=== PATIENT | female | born 1995 | race Caucasian/White ===

== ENCOUNTER 2025-01-18 07:10 | Inpatient (IN) | payer OTHER, SELFPAY ==
[2025-01-18] VITALS (57 sets, daily range): BP systolic 119–155; BP diastolic 55–81; PULSE 69–107; RESP 14–18; TEMP 36.4–37.9; O2SAT 97–100; BMI 35.5
--- OUTSIDE RECORDS SUMMARY | 2025-01-18 07:19 | XMS RPT_ITS | CCD ---
Author Organization [facility] Care Team Providers Care Master [employer] Parach[employer]ist Name Role Phone Silvina Whitfield Unavailable Unavailable Unavailable Silvina Whitfield Unavailable Mahnaz Quintanilla Unavailable Unavailable Sridhar, Dr. Norman Swenson Attending Unavailabl e Wharton, Dr. Norman Swenson Referring Unavailabl e Whitfield, Dr. Silvina Che Primary Care Unav ailable Wharton, Dr. Norman Swenson Attending Unavailabl e Wharton, Dr. Norman Swenson Referring Unavailabl e Whitfield, Dr. Silvina Che Primary Care Unav ailable Wharton, Dr. Norman Swenson Attending Unavailabl e Wharton, Dr. Norman Swenson Referring Unavailabl e Whitfield, Dr. Silvina Che Primary Care Unav ailable Quintanilla, Dr. Joya Admitting Unavailable Quintanilla, Dr. Joya Attending Unavailable Quintanilla, Dr. Joya Referring Unavailable Whitfield, Dr. Silvina Che Primary Care Unav ailable Quintanilla, Dr. Joya Attending Unavailable Quintanilla, Dr. Joya Referring Unavailable Whitfield, Dr. Silvina Che Primary Care Unav ailable Whitfield, Dr. Silvina Che Primary Care Unav ailable Sridhar, Dr. Norman Swenson Attending Unavailabl e Whitfield, Dr. Silvina Che Primary Care Unav ailable Quintanilla, Dr. Mahnaz Sandy Referring Unav ailable Quintanilla, Dr. Mahnaz Sandy Attending Unav ailable Whitfield, Dr. Silvina Che Primary Care Unav ailable Wharton, Dr. Norman Swenson Attending Unavailabl e Whitfield, Dr. Silvina Che Primary Care Unav ailable Quintanilla, Dr. Mahnaz Sandy Referring Unav ailable Quintanilla, Dr. Mahnaz Sandy Attending Unav ailable Quintanilla, Dr. Mahnaz Sandy Referring Unav ailable Quintanilla, Dr. Mahnaz Sandy Attending Unav ailable Whitfield, Dr. Silvina Che Primary Care Unav ailable Whitfield, Dr. Silvina Che Primary Care Unav ailable Sridhar, Dr. Norman Swenson Attending Unavailabl e Sridhar, Dr. Norman Swenson Referring Unavailabl e Whitfield, Dr. Silivna Che Primary Care Unav ailable Quintanilla, Dr. Mahnaz Sandy Referring Unav ailable Quintanilla, Dr. Mahnaz Sandy Attending Unav ailable Quintanilla, Dr. Mahnaz Sandy Referring Unav ailable Quintanilla, Dr. Mahnaz Sandy Attending Unav ailable Whitfield, Dr. Silvina Che Primary Care Unav ailable Whitfield, Dr. Silvina Che Primary Care Unav ailable Sridhar, Dr. Norman Swenson Attending Unavailabl e Sridhar, Dr. Norman Swenson Referring Unavailabl e Whitfield, Dr. Silvina Che Primary Care Unav ailable Wharton, Dr. Norman Swenson Attending Unavailabl e Wharton, Dr. Norman Swenson Referring Unavailabl e Whitfield, Dr. Silvina Che Primary Care Unav ailable Sridhar, Dr. Norman Swenson Attending Unavailabl e Sridhar, Dr. Norman Swenson Referring Unavailabl e Whitfield, Dr. Silvina Che Primary Care Unav ailable Quintanilla, Dr. Mahnaz Sandy Attending Unav ailable Quintanilla, Dr. Mahnaz Sandy Referring Unav ailable MD MIREILLE ELY Attending Unavail able MD MIREILLE ELY Referring Unavail able Whitfield, Dr. Silvina Che Primary Care Unav ailable Whitfield, Dr. Silvina Che Primary Care Unav ailable Wharton, Dr. Norman Swenson Attending Unavailabl e Wharton, Dr. Norman Swenson Referring Unavailabl e Whitfield, Dr. Silvina Che Primary Care Unav ailable Sridhar, Dr. Norman Swenson Attending Unavailabl e Wharton, Dr. Norman Swenson Referring Unavailabl e Whitfield, Dr. Silvina Che Primary Care Unav ailable Wharton, Dr. Norman Swenson Attending Unavailabl e Sridhar, Dr. Norman Swenson Referring Unavailabl e Whitfield, Dr. Silvina Che Primary Care Unav ailable Quintanilla, Dr. Mahnaz Sandy Referring Unav ailable Quintanilla, Dr. Mahnaz Sandy Attending Unav ailable Whitfield, Dr. Silvina Che Primary Care Unav ailable Quintanilla, Dr. Mahnaz Sandy Attending Unav ailable Quintanilla, Dr. Mahnaz Sandy Referring Unav ailable Whitfield, Dr. Silvina Che Primary Care Unav ailable Quintanilla, Dr. Mahnaz Sandy Referring Unav ailable Quintanilla, Dr. Mahnaz Sandy Attending Unav ailable Whitfield Silvina MCKEON Primary Care Provider [phone] MIREILLE ELY Attending Unavailable SILVINA WHITFIELD Primary Care Unavailable MIREILLE ELY Attending Unavailable SILVINA WHITFIELD Primary Care Unavailable Unavailable Primary Care Provider UnavailYULI Corcoran Attending Unavailable SELF, SELF Referring Unavailable NEWMAN, EDROY Referring Unavailable TONY NEWMANROY Attending Unavailable DEENA, EDROY L Admitting Unavailable PAT NEWMANY Mattie Attending Unavailable DEENA, EDROY L Referring Unavailable KISHORE HACKETT Attending Unavailable Unavailable Primary Care Provider UnavailSilvina Gonzalez MD Primary Care Provider [phone] SILVINA WHITFIELD Primary Care Unavailable EDWARD MONTERROSO Attending Unavailable Care Physician, No Primary Primary Care Unava ilable Bernadette Harry Admitting Unavailable Bernadette Harry Attending Unavailable Bernadette Harry Referring Unavailable MAYA VASQUEZ Attending Unavail able HACLARIBEL NIRMALA Referring Unavailable HAURY, NIRMALA Attending Unavailable HAURY, NIRMALA Referring Unavailable HAURY, NIRMALA Attending Unavailable HAURY, NIRMALA Referring Unavailable BERNADETTE HARRY Attending Unavailable HAURY, NIRMALA Referring Unavailable BERNADETTE HARRY Attending Unavailable KYE KENDRICK Attending Unavailable LIANA ROSARIO Attending Unavailable HAURY, NIRMALA Referring Unavailable CORINNE SHANNON Attending Unavailable ORI HARRYCA Mattie Referring Unavailable HAURY, NIRMALA Attending Unavailable WISWELL, CORINNE Referring Unavailable NEYHART PEREZ, MAYA Attending Unavail able CORINNE SHANNON Referring Unavailable SHIMA BURRELL Attending Unavailable SHIMA BURRELL Referring Unavailable MAYA VASQUEZ Referring Unavail able SIERRA CASEY Attending Unavailable MAYA VASQUEZ Referring Unavail able Medications Current Medications Medication Drug Class(es) Dates Sig (Normalized) Sig (Original) acetaminophen 325 mg / HYDROcodone bitartrate 5 mg oral tablet (3 sources) Opioid Agonist Start: 01-27-2024 End: 02-03-2024 take 1 tablet by mouth every four hours as needed for pain hydroCODone-aceta minophen 5-325 MG tablet Indications: Missed Take 1 tablet by mouth every 4 hours as needed for Moderate Pain for up to 7 days. 12 tablet 01/27/2024 Active Start: 01-27-2024 End: 01-27-2024 take 1 tablet by mouth every four hours as needed erythromycin 0.005 mg/mg ophthalmic ointment (1 source) Macrolide, Macrolide Antimicrobial Start: 10-29-2024 erythromycin (Romycin) 5 mg/gram (0.5 %) ophthalmic ointment Indications: Acute conjunctivitis of right eye, unspecified acute conjunctivitis type 1 application in affected eye 4 times a day x 7 days. Apply 1 cm strip of ointment into lower conjunctival sac. 3.5 g 10/29/2024 Active ibuprofen 800 mg oral tablet (4 sources) Nonsteroidal Anti-inflammatory Drug Start: 01-27-2024 take 1 tablet by mouth every eight hours as needed ibuprofen 800 MG tablet Take 1 tablet by mouth every 8 hours as needed for Mild Pain or Moderate Pain. 30 tablet 1 01/27/2024 Active Start: 01-27-2024 End: 01-27-2024 take 1 tablet by mouth every six hours as needed Start: 04-11-2022 take 1 tablet by isamar th every eight hours ibuprofen 800 mg oral tablet ; 1 tab(s) orally every 8 hours Quantity: 60 Refills: 0 Ordered: 11-Apr-2022 Mahnaz Quintanilla Start: 11-Apr-2022 Generic Substitution Allowed Comments: Do not take this drug if you are .It is very important that you take or use this exactly as directed. Do not skip doses or discontinue unless directed by your doctor.May cause drowsiness or dizziness.Obtain medical advice before taking any non-prescription drugs as some may affect the action of this medication.Take with food or milk. Comment on above: Do not take this shayy g if you are .It is very important that you take or use this exactly as directed. Do not skip doses or discontinue unless directed by your doctor.May cause drowsiness or dizziness.Obtain medical advice before taking any non-prescription drugs as some may affect the action of this medication.Take with food or milk. metroNIDAZOLE 500 mg oral tablet (1 source) Nitroimidazole Antimicrobial Start: End: take 1 tablet by mouth twice daily metroNIDAZOLE 500 MG Oral Tablet Take 1 tablet twice daily Quantity: 14 Refills: 0 Ordered: 19-Oct-2021 Norman Leonard DO Start : 19-Oct-2021 End : 26-Oct-2021 Active 1 oral capsule (1 source) take 1 tablet by mouth once daily 1 oral capsule ; 1 tab(s) orally once a day Quantity: 0 Refills: 0 Ordered: 09-Apr-2022 Flaquito Conway Generic Substitution Allowed VIT 7-FZMR-[id number]-DHA ORAL (20 sources) VIT 7-IIAL-SABQN-DHA ORAL Take by mouth. Active Completed/Discontinued Medications Medication Drug Class(es) Dates Sig (Normalized) Sig (Original) acetaminophen 325 mg oral tablet (2 sources) Start: 01-27-2024 End: 01-27-2024 take 1 tablet by mouth every four hours as needed Start: 04-11-2022 take 3 tablets by mo ut every six hours acetaminophen 325 mg oral tablet ; 3 tab(s) orally every 6 hours Quantity: 0 Refills: 0 Ordered: 11-Apr-2022 Mahnaz Quintanilla Start: 11-Apr-2022 Generic Substitution Allowed acetaminophen 325 mg / oxyCODONE hydrochloride 5 mg oral tablet (1 source) Opioid Agonist Start: 01-27-2024 End: 01-27-2024 take 1 tablet by mouth every three hours as needed aspirin 81 mg delayed release oral tablet (19 sources) Platelet Aggregation Inhibitor, Nonsteroidal Anti-inflammatory Drug Start: 09-28-2021 take 2 tablets by mouth once daily Aspirin 81 MG Oral Tablet Delayed Release TAKE 2 TABLET Daily Quantity: 60 Refills: 11 Ordered: 28-Sep-2021 Khoa DO, Norman Start : 28-Sep-2021 Active calcium chloride 0.0014 meq/ml / potassium chloride 0.004 meq/ml / sodium chloride 0.103 meq/ml / sodium lactate 0.028 meq/ml injectable solution (1 source) Start: 01-27-2024 End: 01-27-2024 diphenhydrAMINE hydrochloride 25 mg oral tablet (1 source) Histamine-1 Receptor Antagonist Start: 01-27-2024 End: 01-27-2024 take 1 tablet by mouth every six hours as needed Doxycycline hyclate (VIBRAMYCIN) 200 mg in Sodium chloride 0.9%, with overfill 295 mL (total volume) IVPB (1 source) Start: 01-27-2024 End: 01-27-2024 200 mg, Intravenous, Administer over 2 Hours, ONCE, 1 dose, On Fri01/27/24 at 0615, Extravasation Risk levonorgestrel 0.169515 mg/hr intrauterine system (4 sources) Progestin, Progestin-containi ng Intrauterine Device Start: 07-03-2022 End: 07-03-2025 levonorgestrel (Naye) 14 mcg/24 hrs (3 yrs) 13.5 mg IUD 1 each by intrauterine route 1 time. 07/03/2022 10/27/2023 Discontinued (Therapy completed) Naye 13.5 MG In trauterine Intrauterine Device Quantity: 0 Refills: 0 Ordered: 03-Jul-2022 DO Active 2 ml ondansetron 2 mg/ml injection (2 sources) Serotonin-3 Receptor Antagonist Start: 01-27-2024 End: 01-27-2024 Start: 01-27-2024 End: 01-27-2024 take 1 tablet by mouth every six hours as needed Multi +DHA 27-0.8-2 50 MG Oral Capsule (20 sources) Multi + DHA 27-0.8-250 MG Oral Capsule Quantity: 0 Refills: 0 Ordered: 31-Aug-2021 DO Active Probiotic Complex Acidophilu s CAPS (20 sources) Probiotic Comple x Acidophilus CAPS Quantity: 0 Refills: 0 Ordered: 31-Aug-2021 DO Active Problems Active Problems Problem Classification Problem Date Documented Da te Episodic/Chronic Abdominal pain (2 sources) Right upper quadrant pain; Translations: [Right upper quadrant pain] Onset: 12-09-2024 12-09-2024 Episodic Anxiety disorders (1 source) Anxiety disorder, unspecified; Translations: [Anxiety during (HCC)] Onset: 07-29-2024 Chronic Contraceptive and procreative management (2 sources) Intrauterine contraceptive device in situ; Translations: [Presence of intrauterine contraceptive device] Episodic Comment on above: Naye IUD-placed LOT#: [id number]:05/2024; Immunizations and screening for infectious disease (20 sources) Patient encounter status; Translations: [Other specified vaccination] Onset: 02-19-2022 07-15-2023 Episodic Inflammation; infection of eye (except that caused by tuberculosis or sexually transmitteddisease) (3 sources) Acute conjunctivitis of right eye; Translations: [Unspecified acute conjunctivitis, right eye] Onset: 10-29-2024 10-29-2024 Episodic Inflammatory diseases of female pelvic organs (16 sources) Bacterial vaginosis; Translations: [Vaginitis and vulvovaginitis, unspecified] Episodic Menstrual disorders (7 sources) Secondary amenorrhea; Translations: [Absence of menstruation] Chronic Nausea and vomiting (2 sources) Nausea; Translations: [Nausea] Onset: 12-09-2024 12-09-2024 Episodic OB-related trauma to perineum and vulva (2 sources) Second degree perineal tear during delivery - delivered; Translations: [Second-degree perineal laceration, delivered, with or without mention of antepartum condition] Onset: 04-10-2022 04-11-2022 Episodic Other complications of ; puerperium affecting management of mother (3 sources) Obesity complicating childbirth; Translations: [Obesity complicating childbirth] Onset: 04-09-2022 Chronic Other complications of (20 sources) Maternal obesity complicating , childbirth and the puerperium, antepartum; Translations: [Obesity complicating , second trimester] Onset: 07-29-2024 07-29-2024 Chronic Other complications of (1 source) Obesity complicating , second trimester; Translations: [Obesity affecting in second trimester, unspecified obesity type (HCC)] Onset: 07-29-2024 Chronic Other complications of (1 source) Obesity complicating , unspecified trimester; Translations: [Obesity affecting , antepartum, unspecified obesity type (HCC)] Onset: 11-04-2024 Chronic Other complications of (13 sources) Uterine size for dates discrepancy; Translations: [Uterine size date discrepancy, antepartum condition or complication] Episodic Other complications of (4 sources) Uterine size-date discrepancy, third trimester; Translations: [Uterine size-date discrepancy, third trimester] Onset: 03-15-2022 Episodic Other complications of (20 sources) High risk ; Translations: [Supervision of high risk , unspecified, second trimester] Onset: 07-29-2024 07-29-2024 Episodic Other complications of (3 sources) Anxiety in ; Translations: [Other mental disorders complicating , unspecified trimester] Onset: 07-29-2024 07-29-2024 Episodic Other complications of (1 source) Supervision of high risk , unspecified, third trimester; Translations: [Encounter for supervision of high risk in third trimester, antepartum (HCC)] Onset: 11-15-2024 Episodic Other complications of (1 source) Supervision of high risk , unspecified, second trimester; Translations: [Encounter for supervision of high risk in second trimester, antepartum (HCC)] Onset: 11-04-2024 Episodic Other female genital disorders (4 sources) Leukorrhea; Translations: [Leukorrhea, not specified as infective] Episodic Other gastrointestinal disorders (20 sources) Chronic constipation; Translations: [Constipation, unspecified] Episodic Other nutritional; endocrine; and metabolic disorders (20 sources) Body mass index 30+ - obesity; Translations: [Obesity, unspecified] Chronic Other nutritional; endocrine; and metabolic disorders (4 sources) Obesity, unspecified; Translations: [Obesity, unspecified] Onset: 03-15-2022 Chronic Other nutritional; endocrine; and metabolic disorders (1 source) Body mass index (BMI) 30.0-30.9, adult; Translations: [Body mass index [BMI] 30.0-30.9, adult] Onset: 03-15-2022 Chronic Residual codes; unclassified (20 sources) History of with abortive outcome; Translations: [Personal history of other genital system and obstetric disorders] Episodic Comment on above: 02/2015; Residual codes; unclassified (5 sources) Gestation period, 16 weeks; Translations: [ state, incidental] Onset: 11-23-2021 Episodic Residual codes; unclassified (1 source) Gestation period, 24 weeks; Translations: [ state, incidental] Episodic Residual codes; unclassified (3 sources) Gestation period, 30 weeks; Translations: [ state, incidental] 11-15-2024 Episodic Residual codes; unclassified (12 sources) Gestation period, 33 weeks; Translations: [ state, incidental] 12-09-2024 Episodic Residual codes; unclassified (9 sources) Gestation period, 36 weeks; Translations: [ state, incidental] 12-31-2024 Episodic Residual codes; unclassified (1 source) 39 weeks gestation of ; Translations: [39 weeks gestation of ] Onset: 04-11-2022 Episodic Residual codes; unclassified (2 sources) 37 weeks gestation of ; Translations: [37 weeks gestation of ] Onset: 03-15-2022 Episodic Residual codes; unclassified (1 source) Weeks of gestation of not specified; Translations: [Weeks of gestation of not specified] Onset: 02-19-2022 Episodic Residual codes; unclassified (4 sources) 28 weeks gestation of ; Translations: [28 weeks gestation of ] Onset: 02-01-2022 Episodic Residual codes; unclassified (1 source) 31 weeks gestation of ; Translations: [31 weeks gestation of ] Onset: 02-01-2022 Episodic Residual codes; unclassified (2 sources) Gestation period, 14 weeks; Translations: [14 weeks gestation of ] 07-29-2024 Episodic Residual codes; unclassified (2 sources) Gestation period, 20 weeks; Translations: [20 weeks gestation of ] 09-09-2024 Episodic Residual codes; unclassified (2 sources) Gestation period, 28 weeks; Translations: [28 weeks gestation of ] 11-04-2024 Episodic Residual codes; unclassified (2 sources) Gestation period, 32 weeks; Translations: [32 weeks gestation of ] 12-01-2024 Episodic Residual codes; unclassified (1 source) Gestation period, 37 weeks; Translations: [37 weeks gestation of ] 01-05-2025 Episodic Residual codes; unclassified (1 source) Gestation period, 38 weeks; Translations: [38 weeks gestation of ] 01-14-2025 Episodic Residual codes; unclassified (1 source) 38 weeks gestation of ; Translations: [38 weeks gestation of (HCC)] Onset: 01-14-2025 Episodic Residual codes; unclassified (1 source) 36 weeks gestation of ; Translations: [36 weeks gestation of (HCC)] Onset: 12-31-2024 Episodic Residual codes; unclassified (1 source) 34 weeks gestation of ; Translations: [34 weeks gestation of (HCC)] Onset: 12-15-2024 Episodic Residual codes; unclassified (1 source) 33 weeks gestation of ; Translations: [33 weeks gestation of (HCC)] Onset: 12-09-2024 Episodic Residual codes; unclassified (1 source) 32 weeks gestation of ; Translations: [32 weeks gestation of (HCC)] Onset: 12-01-2024 Episodic Residual codes; unclassified (1 source) 30 weeks gestation of ; Translations: [30 weeks gestation of (HCC)] Onset: 11-15-2024 Episodic Unclassified (2 sources) INDUCTION OF LABOR 03-29-2022 Comment on above: INDUCTION OF LABOR Unclassified (1 source) PP 04-08-2022 Comment on above: PP Unclassified (1 source) Perineal laceration, second degree, delivered 04-11-2022 Unclassified (2 sources) Procedure; Translations: [Procedure] Onset: 10-27-2023 Unclassified (3 sources) [facility] Education - COMMON Onset: 07-29-2024 07-29-2024 Unclassified (3 sources) Education - [place] Onset: 07-29-2024 07-29-2024 Past or Other Problems Problem Classification Problem Date Documented Date Episodic/Chronic Hemorrhage during ; abruptio placenta; placenta previa (20 sources) Antepartum hemorrhage; Translations: [Hemorrhage in early , unspecified] Onset: 07-18-2024 07-18-2024 Episodic Other complications of (2 sources) Missed miscarriage; Translations: [Missed ] Onset: 01-27-2024 01-27-2024 Episodic Other complications of (1 source) Missed ; Translations: [Missed ] Onset: 01-27-2024 Episodic Other complications of (20 sources) History of delivery of macrosomal infant; Translations: [Supervision of with other poor reproductive or obstetric history, unspecified trimester] Onset: 07-29-2024 07-29-2024 Episodic Other complications of (20 sources) Diseases of the digestive system complicating , second trimester; Translations: [Other current conditions classifiable elsewhere of mother, antepartum condition or complication] Onset: 07-29-2024 07-29-2024 Episodic Other complications of (20 sources) Other mental disorders complicating , unspecified trimester; Translations: [Mental disorders of mother, antepartum condition or complication] Onset: 07-29-2024 07-29-2024 Episodic Other complications of (1 source) Supervision of with other poor reproductive or obstetric history, unspecified trimester; Translations: [History of macrosomia in infant in prior , currently (HCC)] Onset: 07-29-2024 Episodic Other and delivery including normal (20 sources) Urine test positive; Translations: [ examination or test, positive result] Onset: 11-23-2021 04-11-2022 Episodic Comment on above: 04/09/22 39 WEEKS MA LE 8LB [id number]; Other screening for suspected conditions (not mental disorders or infectious disease) (8 sources) Urine test negative; Translations: [ examination or test, negative result] Onset: 09-28-2021 Episodic Residual codes; unclassified (5 sources) Gestation period, 12 weeks; Translations: [ state, incidental] Onset: 10-04-2021 Episodic Residual codes; unclassified (2 sources) 16 weeks gestation of ; Translations: [16 weeks gestation of ] Onset: 11-23-2021 Episodic Residual codes; unclassified (1 source) 21 weeks gestation of ; Translations: [21 weeks gestation of ] Onset: 11-23-2021 Episodic Residual codes; unclassified (1 source) 12 weeks gestation of ; Translations: [12 weeks gestation of ] Onset: 10-04-2021 Episodic Residual codes; unclassified (20 sources) H/O: miscarriage; Translations: [Personal history of other complications of , childbirth and the puerperium] Onset: 07-29-2024 07-29-2024 Episodic Residual codes; unclassified (19 sources) H/O: depression; Translations: [Personal history of other complications of , childbirth and the puerperium] Onset: 08-11-2024 08-11-2024 Episodic Residual codes; unclassified (1 source) 20 weeks gestation of ; Translations: [20 weeks gestation of (HCC)] Onset: 09-09-2024 Episodic Residual codes; unclassified (1 source) 14 weeks gestation of ; Translations: [14 weeks gestation of (HCC)] Onset: 08-11-2024 Episodic Spontaneous (3 sources) with abortive outcome; Translations: [Incomplete spontaneous without complication] Onset: 01-27-2024 01-27-2024 Episodic Unclassified (20 sources) Finding of menstrual bleeding; Translations: [Menstruation] Comment on above: Onset age 14 years; Results Test Name Value Interpretation Reference Range Facility URINE OB DIP B/Oon 5 Glucose Ql (U) Negative Neg mg/dL [facility] Interpretation and review of laboratory results Normal [facility] Protein.monoclonal (U) [Mass/Vol] Negative Neg mg/dL [facility] URINE OB DIP B/Oon 5 Glucose Ql (U) Negative Neg mg/dL [facility] Protein.monoclonal (U) [Mass/Vol] Negative Neg mg/dL [facility] Examination level ultrasound on 12-31-2024 [facility] Radiology Study observation (narrative) [facility] ROUTINE, GROUP B ST REPTOCOCCUS BY PCRon 12-31-2024 ROUTINE, GROUP B STREPTOCOCCUS BY PCR Not detected Normal [facility] Comment on above: Performed By: #### Jasmyn MILLS, [id number] #### [facility] CLIA [id number] [address] [place] [address] [place] URINE OB DIP B/Oon 5 Glucose Ql (U) Negative Neg mg/dL [facility] Interpretation and review of laboratory results Normal [facility] Protein.monoclonal (U) [Mass/Vol] Negative Neg mg/dL [facility] AMYLASEon 12-10-2024 Amylase [Catalytic activity/Vol] 65 U/L 30 - 104 U/L [facility] LIPASEon 12-10-2024 Lipase [Catalytic activity/Vol] 26 U/L 16 - 61 U/L [facility] No Panel Informationon 12-10 Interpretation and review of laboratory results Normal [facility] PROTEIN / CREATININE RATIOon 12-10-2024 Protein/Creatinine (U) [Mass ratio] 0.10 mg/mg NINF - 0.15 mg/mg [facility] Comment on above: Adult Proteinuria Ca tegories: <0.15 mg/mg is considered normal to mildly increased 0.15 - 0.50 mg/mg is considered moderately increased >0.50 mg/mg is considered severely increased KDIGO. (2013). KDIGO 2012 Clinical Practice Guideline for the Evaluation and Management of Chronic Kidney Disease. Official Journal of the International Society of Nephrology, 3(1), 1-150. Protein/Creatinine (U) [Mass ratio]on 12-10-2024 Creatinine (U) [Mass/Vol] 167.9 mg/dL 20.0 - 300.0 mg/dL [facility] Interpretation and review of laboratory results Normal [facility] Protein (U) [Mass/Vol] 17 mg/dL 0 - 20 mg/dL [facility] Amylase SerPl-cCncon 025 Amylase [Catalytic activity/Vol] 65 U/L Normal 30-104 [facility] Comment on above: Order Comment: Speci men Type: SWAB Ordering Facility: [facility] Address: [address] [place] [address] Performed By: #### Jasmyn MILLS, [id number] #### [facility] CLIA [id number] [address] [place] [address] [place] CBC W Auto Differential pane l (Bld)on 12-09-2024 Basophils (Bld) [#/Vol] 0.03 10*3/uL [facility] Basophils/100 WBC (Bld) 0.2 % [facility] Differential cell count method Nom (Bld) Auto [facility] Eosinophils (Bld) [#/Vol] 0.04 10*3/uL [facility] Eosinophils/100 WBC (Bld) 0.3 % [facility] Erythrocyte distribution width (RBC) [Ratio] 13.6 % 11.5 - 15.0 % [facility] Hematocrit (Bld) [Volume fraction] 37.0 % 36.0 - 46.0 % [facility] Hemoglobin (Bld) [Mass/Vol] 12.7 g/dL 11.5 - 15.5 g/dL [facility] Immature granulocytes (Bld) [#/Vol] 0.07 10*3/uL [facility] Immature granulocytes/100 WBC (Bld) 0.6 % [facility] Interpretation and review of laboratory results Abnormal [facility] Lymphocytes (Bld) [#/Vol] 1.52 10*3/uL [facility] Lymphocytes/100 WBC (Bld) 12.5 % [facility] MCH (RBC) [Entitic mass] 27.6 pg 26.0 - 34.0 pg [facility] MCHC (RBC) [Mass/Vol] 34.3 g/dL 30.5 - 36.0 g/dL [facility] MCV (RBC) [Entitic vol] 80.4 fL 80.0 - 100.0 fL [facility] Monocytes (Bld) [#/Vol] 0.61 10*3/uL [facility] Monocytes/100 WBC (Bld) 5.0 % [facility] Neutrophils (Bld) [#/Vol] 9.93 10*3/uL High [facility] Neutrophils/100 WBC (Bld) 81.4 % [facility] Nucleated RBC (Bld) [#/Vol] [facility] Nucleated RBC/100 WBC (Bld) [Ratio] 0.0 % /100 WBC [facility] Platelet mean volume (Bld) [Entitic vol] 10.1 fL 9.0 - 12.7 fL [facility] Platelets (Bld) [#/Vol] 171 10*3/uL [facility] RBC (Bld) [#/Vol] 4.60 10*6/uL 3.90 - 5.2 0 m/uL [facility] WBC (Bld) [#/Vol] 12.20 10*3/uL High [facility] Basophils (Bld) [#/Vol] 0.03 10*3/uL Normal <0.11 [facility] Comment on above: Order Comment: Speci men Type: SWAB Ordering Facility: [facility] Address: [address] [place] [address] Performed By: #### Jasmyn VAMP, [id number] #### [facility] CLIA [id number] [address] [place] [address] [place] Basophils/100 WBC (Bld) 0.2 % Normal [facility] Comment on above: Order Comment: Speci men Type: SWAB Ordering Facility: [facility] Address: [address] [place] [address] Performed By: #### Jasmyn VAMP, [id number] #### [facility] CLIA [id number] [address] [place] [address] [place] Differential cell count method Nom (Bld) Auto Normal [facility] Comment on above: Order Comment: Speci men Type: SWAB Ordering Facility: [facility] Address: [address] [place] [address] Performed By: #### Jasmyn VAMP, 93092-9 #### [facility] CLIA [id number] [address] [place] [address] [place] Eosinophils (Bld) [#/Vol] 0.04 10*3/uL Normal <0.46 [facility] Comment on above: Order Comment: Speci men Type: SWAB Ordering Facility: [facility] Address: [address] [place] [address] Performed By: #### Jasmyn VAMP, [id number] #### [facility] CLIA [id number] [address] [place] [address] [place] Eosinophils/100 WBC (Bld) 0.3 % Normal [facility] Comment on above: Order Comment: Speci men Type: SWAB Ordering Facility: [facility] Address: [address] [place] [address] Performed By: #### Jasmyn VAMP, [id number] #### [facility] CLIA [id number] [address] [place] [address] [place] Erythrocyte distribution width (RBC) [Ratio] 13.6 % Normal 11.5-15.0 [facility] Comment on above: Order Comment: Speci men Type: SWAB Ordering Facility: [facility] Address: [address] [place] [address] Performed By: #### Jasmyn VAMP, [id number] #### [facility] CLIA [id number] [address] [place] [address] [place] Hematocrit (Bld) [Volume fraction] 37.0 % Normal 36.0-46.0 [facility] Comment on above: Order Comment: Speci men Type: SWAB Ordering Facility: [facility] Address: [address] [place] [address] Performed By: #### Jasmyn VAMP, [id number] #### [facility] CLIA [id number] [address] [place] [address] [place] Hemoglobin (Bld) [Mass/Vol] 12.7 g/dL Normal 11.5-15.5 [facility] Comment on above: Order Comment: Speci men Type: SWAB Ordering Facility: [facility] Address: [address] [place] [address] Performed By: #### Jasmyn VAMP, 71513-0 #### [facility] CLIA [id number] [address] [place] [address] [place] Immature granulocytes (Bld) [#/Vol] 0.07 10*3/uL Normal <0.10 [facility] Comment on above: Order Comment: Speci men Type: SWAB Ordering Facility: [facility] Address: [address] [place] [address] Performed By: #### B VAMP, [id number] #### [facility] CLIA [id number] [address] [place] [address] [place] Immature granulocytes/100 WBC (Bld) 0.6 % Normal [facility] Comment on above: Order Comment: Speci men Type: SWAB Ordering Facility: [facility] Address: [address] [place] [address] Performed By: #### Jasmyn VAMP, 10912-9 #### [facility] CLIA [id number] [address] [place] [address] [place] Lymphocytes (Bld) [#/Vol] 1.52 10*3/uL Normal 1.00-4.00 [facility] Comment on above: Order Comment: Speci men Type: SWAB Ordering Facility: [facility] Address: [address] [place] [address] Performed By: #### Jasmyn VAMP, [id number] #### [facility] CLIA [id number] [address] [place] [address] [place] Lymphocytes/100 WBC (Bld) 12.5 % Normal [facility] Comment on above: Order Comment: Speci men Type: SWAB Ordering Facility: [facility] Address: [address] [place] [address] Performed By: #### Jasmyn VAMP, 53373-8 #### [facility] CLIA [id number] [address] [place] [address] [place] MCH (RBC) [Entitic mass] 27.6 pg Normal 26.0-34.0 [facility] Comment on above: Order Comment: Speci men Type: SWAB Ordering Facility: [facility] Address: [address] [place] [address] Performed By: #### Jasmyn VAMP, 24934-5 #### [facility] CLIA [id number] [address] [place] [address] [place] MCHC (RBC) [Mass/Vol] 34.3 g/dL Normal 30.5-36.0 [facility] Comment on above: Order Comment: Speci men Type: SWAB Ordering Facility: [facility] Address: [address] [place] [address] Performed By: #### Jasmyn VAMP, 60377-8 #### [facility] CLIA [id number] [address] [place], [place] [address] [place] MCV (RBC) [Entitic vol] 80.4 fL Normal 80.0-100.0 [facility] Comment on above: Order Comment: Speci men Type: SWAB Ordering Facility: [facility] Address: [address] [place] [address] Performed By: #### Jasmyn VAMP, 75767-4 #### [facility] CLIA [id number] [address] [place] [address] [place] Monocytes (Bld) [#/Vol] 0.61 10*3/uL Normal <0.87 [facility] Comment on above: Order Comment: Speci men Type: SWAB Ordering Facility: [facility] Address: [address] [place] [address] Performed By: #### Jasmyn VAMP, [id number] #### [facility] CLIA [id number] [address] [place] [address] [place] Monocytes/100 WBC (Bld) 5.0 % Normal [facility] Comment on above: Order Comment: Speci men Type: SWAB Ordering Facility: [facility] Address: [address] [place] [address] Performed By: #### Jasmyn VAMP, 53249-5 #### [facility] CLIA [id number] [address] [place] [address] [place] Neutrophils (Bld) [#/Vol] 9.93 10*3/uL High 1.45-7.50 [facility] Comment on above: Order Comment: Speci men Type: SWAB Ordering Facility: [facility] Address: [address] [place] [address] Performed By: #### B VAMP, 18465-0 #### [facility] CLIA [id number] [address] [place] [address] [place] Neutrophils/100 WBC (Bld) 81.4 % Normal [facility] Comment on above: Order Comment: Speci men Type: SWAB Ordering Facility: [facility] Address: [address] [place] [address] Performed By: #### Jasmyn VAMP, 75251-6 #### [facility] CLIA [id number] [address] [place] [address] [place] Nucleated RBC (Bld) [#/Vol] 10*3/uL Normal <0.01 [facility] Comment on above: Order Comment: Speci men Type: SWAB Ordering Facility: [facility] Address: [address] [place] [address] Performed By: #### Jasmyn VAMP, 69842-7 #### [facility] CLIA [id number] [address] [place] [address] [place] Nucleated RBC/100 WBC (Bld) [Ratio] 0.0 /100 WBC Normal [facility] Comment on above: Order Comment: Speci men Type: SWAB Ordering Facility: [facility] Address: [address] [place] [address] Performed By: #### Jasmyn VAMP, 81618-5 #### [facility] CLIA [id number] [address] [place] [address] [place] Platelet mean volume (Bld) [Entitic vol] 10.1 fL Normal 9.0-12.7 [facility] Comment on above: Order Comment: Speci men Type: SWAB Ordering Facility: [facility] Address: [address] [place] [address] Performed By: #### B VAMP, 16296-2 #### [facility] CLIA [id number] [address] [place] [address] [place] Platelets (Bld) [#/Vol] 171 10*3/uL Normal 150-400 [facility] Comment on above: Order Comment: Speci men Type: SWAB Ordering Facility: [facility] Address: [address] [place] [address] Performed By: #### B VAMP, 44277-7 #### [facility] CLIA [id number] [address] [place] [address] [place] RBC (Bld) [#/Vol] 4.60 10*6/uL Normal 3.90-5.20 [facility] Comment on above: Order Comment: Speci men Type: SWAB Ordering Facility: [facility] Address: [address] [place] [address] Performed By: #### Jasmyn VAMP, 40827-3 #### [facility] CLIA [id number] [address] [place] [address] [place] WBC (Bld) [#/Vol] 12.20 10*3/uL High 3.70-11.00 [facility] Comment on above: Order Comment: Speci men Type: SWAB Ordering Facility: [facility] Address: [address] [place] [address] Performed By: #### Jasmyn VAMP, 86922-5 #### [facility] CLIA [id number] [address] [place] [address] [place] CNPCorrine 12-09-2024 CNPN Telephone (OBGYWM) ----- SWETA KING ([id number]) 1995 F Date Time Provider Department 12/09/24 SHIMA BURRELL OBGYWeVnancio During your visit today, we recorded the following information about you: Liana Manning, MEGA 12/09/2024 9:37 AM Signed 33w5d Patient called with c/o RUQ pain for the last 1-2 weeks. Describes it as a pressure. Pain rate of 6. States baby sits on that side. It's more painful with movement. Patient tearful on the phone because she is now experiencing nausea. Can barely eat or drink. Will only sip on water because of the nausea. No vomiting. No hx of gallstones. Patient feels generally unwell. Fatigued, chills, but afebrile. Took her BP last night and it was 138/76. Elevated compared to her normal range. Denies vision changes. Reported a mild RODRIGUES sometimes. Feels a little better today than she did yesterday. Thought the pain was caused by constipation. Has been taking a stool softener the last 2 days. Please advise. MEGA Hartman Jessica, APRN.CNM 12/09/2024 10:00 AM Signed Can you please schedule patient today at 1130 but ok to come in anytime. I would like to see her before I go to hospital. If she can't put her at 3:30 slot but come at 1:45. PRIMO Etienne Jennifer, RN 12/09/2024 10:15 AM Signed Called and spoke with patient. Coming at 11:30 AM. Liana Manning RN Allergies As of Date: 12/09/2024 (No Known Allergies) Date Reviewed: 12/01/2024 Reviewed by: Tere Romero MA - Fully Assessed Reason for Visit: OB RUQ pain [Other] Prescriptions as of 12/09/2024 - VIT 5-GCXX-QUYLR-DHA ORAL Take by mouth. Problem List As Of Date 12/09/2024 [facility]ed [facility]07/[facility]/2024 Vaginal bleeding affecting early [O20*07/29/2024 Obesity affecting in second trimester*07/29/2024 History of macrosomia in infant in prior pregna*07/29/2024 History of miscarriage [Z87.59] 07/29/2024 Anxiety during [O99.340, F41.9] 07/29/2024 Constipation during in second trimest*07/29/2024 History of depression [Z87.59, Z86.5*08/11/2024 Encounter for supervision of high risk pregnanc*11/15/2024 Encounter Status:Closed by LIANA MANNING on 12/09/24 Normal [facility] 2000 panelOrdered By: Dixie Blanco on 12-09-2024 Albumin [Mass/Vol] 3.4 g/dL Low 3.9 - 4.9 g/dL [facility] ALP [Catalytic activity/Vol] 80 U/L 34 - 123 U/L [facility] ALT [Catalytic activity/Vol] U/L Low 7 - 38 U/L [facility] Anion gap [Moles/Vol] 13 mmol/L 8 - 15 mmol/L [facility] AST [Catalytic activity/Vol] 7 U/L Low 13 - 35 U/L [facility] Bilirubin [Mass/Vol] 0.6 mg/dL 0.2 - 1 .3 mg/dL [facility] Calcium [Mass/Vol] 8.8 mg/dL 8.5 - 10. 2 mg/dL [facility] Chloride [Moles/Vol] 103 mmol/L 98 - 10 7 mmol/L [facility] CO2 [Moles/Vol] 20 mmol/L Low 22 - 30 mmol/L [facility] Creatinine [Mass/Vol] 0.58 mg/dL 0.58 - 0.96 mg/dL [facility] GFR/1.73 sq M.predicted among non-blacks MDRD (S/P/Bld) [Vol rate/Area] 127 mL/min/{1.73_m2} - PINF [facility] Comment on above: Estimated Glomerular Filtration Rate (eGFR) is calculated using the 2020 CKD-EPI creatinine equation. This equation utilizes serum creatinine, sex, and age as parameters. The creatinine assay has traceable calibration to isotope dilution-mass spectrometry. Refer to KDIGO guidelines for clinical interpretation. In patients with unstable renal function, e.g. those with acute kidney injury, the eGFR may not accurately reflect actual GFR. Glucose [Mass/Vol] 90 mg/dL 74 - 99 mg/dL [facility] Comment on above: The [place] Diab[employer] [place] Association (ADA) provides guidance for cutoff values for fasting glucose and random glucose. The ADA defines fasting as no caloric intake for at least 8 hours. Fasting plasma glucose results between 100 to 125 mg/dL indicate increased risk for diabetes (prediabetes). Fasting plasma glucose results greater than or equal to 126 mg/dL meet the criteria for diagnosis of diabetes. In the absence of unequivocal hyperglycemia, results should be confirmed by repeat testing. In a patient with classic symptoms of hyperglycemia or hyperglycemic crisis, random plasma glucose results greater than or equal to 200 mg/dL meet the criteria for diagnosis of diabetes. Reference: Standards of Medical Care in Diabetes 2016, [place] [employer]. Diabetes Care. 2016.39(Suppl 1). Interpretation and review of laboratory results Abnormal [facility] Potassium [Moles/Vol] 4.0 mmol/L 3.7 - 5.1 mmol/L [facility] Protein [Mass/Vol] 6.3 g/dL 6.3 - 8.0 g/dL [facility] Sodium [Moles/Vol] 136 mmol/L 136 - 144 mmol/L [facility] Urea nitrogen [Mass/Vol] 4 mg/dL Low 7 - 21 mg/dL [facility] Comprehensive metabolic 2000 panelon 12-09-2024 Albumin [Mass/Vol] 3.4 g/dL Low 3.9-4.9 [facility] Comment on above: Order Comment: Speci men Type: SWAB Ordering Facility: [facility] Address: [address] [place] [address] Performed By: #### Jasmyn VAMP, 29192-7 #### [facility] CLIA [id number] [address] [place] [address] [place] ALP [Catalytic activity/Vol] 80 U/L Normal 34-123 [facility] Comment on above: Order Comment: Speci men Type: SWAB Ordering Facility: [facility] Address: [address] [place] [address] Performed By: #### Jasmyn VAMP, 98499-6 #### [facility] CLIA [id number] [address] [place] [address] [place] ALT [Catalytic activity/Vol] U/L Low 7-38 [facility] Comment on above: Order Comment: Speci men Type: SWAB Ordering Facility: [facility] Address: [address] [place] [address] Performed By: #### Jasmyn VAMP, 01757-4 #### [facility] CLIA [id number] [address] [place] [address] [place] Anion gap [Moles/Vol] 13 mmol/L Normal 8-15 [facility] Comment on above: Order Comment: Speci men Type: SWAB Ordering Facility: [facility] Address: [address] [place] [address] Performed By: #### Jasmyn VAMP, 40596-0 #### [facility] CLIA [id number] [address] [place] [address] [place] AST [Catalytic activity/Vol] 7 U/L Low 13-35 [facility] Comment on above: Order Comment: Speci men Type: SWAB Ordering Facility: [facility] Address: [address] [place] [address] Performed By: #### Jasmyn VAMP, 29943-8 #### [facility] CLIA [id number] [address] [place] [address] [place] Bilirubin [Mass/Vol] 0.6 mg/dL Normal 0.2-1.3 [facility] Comment on above: Order Comment: Speci men Type: SWAB Ordering Facility: [facility] Address: [address] [place] [address] Performed By: #### Jasmyn VAMP, 07970-4 #### [facility] CLIA [id number] [address] [place] [address] [place] Calcium [Mass/Vol] 8.8 mg/dL Normal 8.5-10.2 [facility] Comment on above: Order Comment: Speci men Type: SWAB Ordering Facility: [facility] Address: [address] [place], [place] [address] Performed By: #### Jasmyn VAMP, 46750-1 #### [facility] CLIA [id number] [address] [place] [address] [place] Chloride [Moles/Vol] 103 mmol/L Normal 98-107 [facility] Comment on above: Order Comment: Speci men Type: SWAB Ordering Facility: [facility] Address: [address] [place] [address] Performed By: #### Jasmyn VAMP, 72657-9 #### [facility] CLIA [id number] [address] [place] [address] [place] CO2 [Moles/Vol] 20 mmol/L Low 22-30 [facility] Comment on above: Order Comment: Speci men Type: SWAB Ordering Facility: [facility] Address: [address] [place] [address] Performed By: #### Jasmyn VAMP, 52862-7 #### [facility] CLIA [id number] [address] [place] [address] [place] Creatinine [Mass/Vol] 0.58 mg/dL Normal 0.58-0.96 [facility] Comment on above: Order Comment: Speci men Type: SWAB Ordering Facility: [facility] Address: [address] [place] [address] Performed By: #### Jasmyn VAMP, 16667-8 #### [facility] CLIA [id number] [address] [place] [address] [place] eGFRcr SerPlBld CKD-EPI 2020 127 mL/min/1.73m??? Normal >=60 [facility] Comment on above: Order Comment: Speci men Type: SWAB Ordering Facility: [facility] Address: [address] [place] [address] Result Comment: Leni mated Glomerular Filtration Rate (eGFR) is calculated using the 2020 CKD-EPI creatinine equation. This equation utilizes serum creatinine, sex, and age as parameters. The creatinine assay has traceable calibration to isotope dilution-mass spectrometry. Refer to KDIGO guidelines for clinical interpretation. In patients with unstable renal function, e.g. those with acute kidney injury, the eGFR may not accurately reflect actual GFR. Performed By: #### Jasmyn VAMP, 50948-7 #### [facility] CLIA [id number] [address] [place], [place] [address] [place] Glucose [Mass/Vol] 90 mg/dL Normal 74-99 [facility] Comment on above: Order Comment: Speci men Type: SWAB Ordering Facility: [facility] Address: [address] [place] [address] Result Comment: The [place] Diabetes Association (ADA) provides guidance for cutoff values for fasting glucose and random glucose. The ADA defines fasting as no caloric intake for at least 8 hours. Fasting plasma glucose results between 100 to 125 mg/dL indicate increased risk for diabetes (prediabetes). Fasting plasma glucose results greater than or equal to 126 mg/dL meet the criteria for diagnosis of diabetes. In the absence of unequivocal hyperglycemia, results should be confirmed by repeat testing. In a patient with classic symptoms of hyperglycemia or hyperglycemic crisis, random plasma glucose results greater than or equal to 200 mg/dL meet the criteria for diagnosis of diabetes. Reference: Standards of Medical Care in Diabetes 2016, [place] [employer]. Diabetes Care. 2016.39(Suppl 1). Performed By: #### Jasmyn VAMP, 27430-7 #### [facility] CLIA [id number] [address] [place] [address] [place] Potassium [Moles/Vol] 4.0 mmol/L Normal 3.7-5.1 [facility] Comment on above: Order Comment: Speci men Type: SWAB Ordering Facility: [facility] Address: [address] [place] [address] Performed By: #### Jasmyn VAMP, 30032-0 #### [facility] CLIA [id number] [address] [place] [address] [place] Protein [Mass/Vol] 6.3 g/dL Normal 6.3-8.0 [facility] Comment on above: Order Comment: Speci men Type: SWAB Ordering Facility: [facility] Address: [address] [place] [address] Performed By: #### Jasmyn VAMP, 57136-1 #### [facility] CLIA [id number] [address] [place] [address] [place] Sodium [Moles/Vol] 136 mmol/L Normal 136-144 [facility] Comment on above: Order Comment: Speci men Type: SWAB Ordering Facility: [facility] Address: [address] [place] [address] Performed By: #### B VAMP, 48402-9 #### [facility] CLIA [id number] [address] [place] [address] [place] Urea nitrogen [Mass/Vol] 4 mg/dL Low 7-21 [facility] Comment on above: Order Comment: Speci men Type: SWAB Ordering Facility: [facility] Address: [address] [place] [address] Performed By: #### B VAMP, 05442-3 #### [facility] CLIA [id number] [address] [place] [address] [place] Lipase SerPl-cCncon 12-10-19 25 Lipase [Catalytic activity/Vol] 26 U/L Normal 16-61 [facility] Comment on above: Order Comment: Speci men Type: SWAB Ordering Facility: [facility] Address: [address] [place] [address] Performed By: #### B VAMP, 43750-8 #### [facility] CLIA [id number] [address] [place] [address] [place] No Panel InformationOrdered By: Dixie Blanco on 12-09-2024 [facility] Prot/Creat Uron 12-09-2024 Protein/Creatinine (U) [Mass ratio] 0.10 mg/mg Normal <0.15 [facility] Comment on above: Order Comment: Speci men Type: URINE SPECIMEN Ordering Facility: [facility] Address: [address] [place] [address] Result Comment: Adul t Proteinuria Categories: <0.15 mg/mg is considered normal to mildly increased 0.15 - 0.50 mg/mg is considered moderately increased >0.50 mg/mg is considered severely increased KDIGO. (2013). KDIGO 2012 Clinical Practice Guideline for the Evaluation and Management of Chronic Kidney Disease. Official Journal of the International Society of Nephrology, 3(1), 1-150. Performed By: #### 2 890-2 #### [facility] CLIA [id number] [address] [place] [address] [place] Protein/Creatinine (U) [Mass ratio]on 12-09-2024 Creatinine (U) [Mass/Vol] 167.9 mg/dL Normal 20.0-300.0 [facility] Comment on above: Order Comment: Speci men Type: URINE SPECIMEN Ordering Facility: [facility] Address: [address] [place] [address] Performed By: #### 2 890-2 #### [facility] CLIA [id number] [address] [place] [address] [place] Protein (U) [Mass/Vol] 17 mg/dL Normal 0-20 [facility] Comment on above: Order Comment: Speci men Type: URINE SPECIMEN Ordering Facility: [facility] Address: [address] [place] [address] Performed By: #### 2 890-2 #### [facility] CLIA [id number] [address] [place] [address] [place] URIC ACIDon 12-09-2024 Urate [Mass/Vol] 3.6 mg/dL 2.5 - 6.6 mg/dL [facility] URINE OB DIP B/Oon 5 Glucose Ql (U) Negative Neg mg/dL [facility] Protein.monoclonal (U) [Mass/Vol] Negative Neg mg/dL [facility] Urate SerPl-mCncon 5 Urate [Mass/Vol] 3.6 mg/dL Normal 2.5-6.6 [facility] Comment on above: Order Comment: Speci men Type: SWAB Ordering Facility: [facility] Address: [address] [place] [address] Performed By: #### B VAMP, 22416-4 #### [facility] CLIA [id number] [address] [place] [address] [place] Urate [Mass/Vol]on 07-31-202 5 Interpretation and review of laboratory results Normal [facility] Examination level ultrasound on 12-01-2024 [facility] Radiology Study observation (narrative) [facility] CBC W Auto Differential pane l (Bld)on 11-04-2024 Basophils (Bld) [#/Vol] 0.04 10*3/uL Normal <0.11 [facility] Comment on above: Order Comment: Speci men Type: BLOOD SPECIMEN Ordering Facility: [facility] Address: [address] [place] [address] Performed By: #### 5 7021-8 #### [facility] CLIA [id number] [address] [place] [address] [place] Basophils/100 WBC (Bld) 0.3 % Normal [facility] Comment on above: Order Comment: Speci men Type: BLOOD SPECIMEN Ordering Facility: [facility] Address: [address] [place] [address] Performed By: #### 5 7021-8 #### [facility] CLIA [id number] [address] [place] [address] [place] Differential cell count method Nom (Bld) Auto Normal [facility] Comment on above: Order Comment: Speci men Type: BLOOD SPECIMEN Ordering Facility: [facility] Address: [address] [place] [address] Performed By: #### 5 7021-8 #### [facility] CLIA [id number] [address] [place] [address] [place] Eosinophils (Bld) [#/Vol] 0.09 10*3/uL Normal <0.46 [facility] Comment on above: Order Comment: Speci men Type: BLOOD SPECIMEN Ordering Facility: [facility] Address: [address] [place] [address] Performed By: #### 5 7021-8 #### [facility] CLIA [id number] [address] [place] [address] [place] Eosinophils/100 WBC (Bld) 0.7 % Normal [facility] Comment on above: Order Comment: Speci men Type: BLOOD SPECIMEN Ordering Facility: [facility] Address: [address] [place] [address] Performed By: #### 5 7021-8 #### [facility] CLIA [id number] [address] [place] [address] [place] Erythrocyte distribution width (RBC) [Ratio] 13.4 % Normal 11.5-15.0 [facility] Comment on above: Order Comment: Speci men Type: BLOOD SPECIMEN Ordering Facility: [facility] Address: [address] [place] [address] Performed By: #### 5 7021-8 #### [facility] CLIA [id number] [address] [place] [address] [place] Hematocrit (Bld) [Volume fraction] 37.1 % Normal 36.0-46.0 [facility] Comment on above: Order Comment: Speci men Type: BLOOD SPECIMEN Ordering Facility: [facility] Address: [address] [place] [address] Performed By: #### 5 7021-8 #### [facility] CLIA [id number] [address] [place] [address] [place] Hemoglobin (Bld) [Mass/Vol] 13.1 g/dL Normal 11.5-15.5 [facility] Comment on above: Order Comment: Speci men Type: BLOOD SPECIMEN Ordering Facility: [facility] Address: [address] [place] [address] Performed By: #### 5 7021-8 #### [id number] [address] [place] [address] [place] Immature granulocytes (Bld) [#/Vol] 0.07 10*3/uL Normal <0.10 [facility] Comment on above: Order Comment: Speci men Type: BLOOD SPECIMEN Ordering Facility: [facility] Address: [address] [place] [address] Performed By: #### 5 7021-8 #### [facility] CLIA [id number] [address] [place] [address] STATES [facility] Immature granulocytes/100 WBC (Bld) 0.5 % Normal [facility] Comment on above: Order Comment: Speci men Type: BLOOD SPECIMEN Ordering Facility: [facility] Address: [address] [place] [address] Performed By: #### 5 7021-8 #### [facility] CLIA [id number] [address] [place] [address] [place] Lymphocytes (Bld) [#/Vol] 1.79 10*3/uL Normal 1.00-4.00 [facility] Comment on above: Order Comment: Speci men Type: BLOOD SPECIMEN Ordering Facility: [facility] Address: [address] [place] [address] Performed By: #### 5 7021-8 #### [facility] CLIA [id number] [address] [place] [address] [place] Lymphocytes/100 WBC (Bld) 13.6 % Normal [facility] Comment on above: Order Comment: Speci men Type: BLOOD SPECIMEN Ordering Facility: [facility] Address: [address] [place] [address] Performed By: #### 5 7021-8 #### [facility] CLIA [id number] [address] [place] [address] [place] MCH (RBC) [Entitic mass] 28.7 pg Normal 26.0-34.0 [facility] Comment on above: Order Comment: Speci men Type: BLOOD SPECIMEN Ordering Facility: [facility] Address: [address] [place] [address] Performed By: #### 5 7021-8 #### [facility] CLIA [id number] [address] [place] [address] [place] MCHC (RBC) [Mass/Vol] 35.3 g/dL Normal 30.5-36.0 [facility] Comment on above: Order Comment: Speci men Type: BLOOD SPECIMEN Ordering Facility: [facility] Address: [address] [place] [address] Performed By: #### 5 7021-8 #### [facility] CLIA [id number] [address] [place] [address] [place] MCV (RBC) [Entitic vol] 81.4 fL Normal 80.0-100.0 [facility] Comment on above: Order Comment: Speci men Type: BLOOD SPECIMEN Ordering Facility: [facility] Address: [address] [place] [address] Performed By: #### 5 7021-8 #### [facility] CLIA [id number] [address] [place] [address] [place] Monocytes (Bld) [#/Vol] 0.57 10*3/uL Normal <0.87 [facility] Comment on above: Order Comment: Speci men Type: BLOOD SPECIMEN Ordering Facility: [facility] Address: [address] [place] [address] Performed By: #### 5 7021-8 #### [facility] CLIA [id number] [address] [place] [address] [place] Monocytes/100 WBC (Bld) 4.3 % Normal [facility] Comment on above: Order Comment: Speci men Type: BLOOD SPECIMEN Ordering Facility: [facility] Address: [address] [place] [address] Performed By: #### 5 7021-8 #### [facility] CLIA [id number] [address] [place] [address] [place] Neutrophils (Bld) [#/Vol] 10.59 10*3/uL High 1.45-7.50 [facility] Comment on above: Order Comment: Speci men Type: BLOOD SPECIMEN Ordering Facility: [facility] Address: [address] [place] [address] Performed By: #### 5 7021-8 #### [facility] CLIA [id number] [address] [place] [address] [place] Neutrophils/100 WBC (Bld) 80.6 % Normal [facility] Comment on above: Order Comment: Speci men Type: BLOOD SPECIMEN Ordering Facility: [facility] Address: [address] [place] [address] Performed By: #### 5 7021-8 #### [facility] CLIA [id number] [address] [place] [address] [place] Nucleated RBC (Bld) [#/Vol] 10*3/uL Normal <0.01 [facility] Comment on above: Order Comment: Speci men Type: BLOOD SPECIMEN Ordering Facility: [facility] Address: [address] [place] [address] Performed By: #### 5 7021-8 #### [facility] CLIA [id number] [address] [place] [address] [place] Nucleated RBC/100 WBC (Bld) [Ratio] 0.0 /100 WBC Normal [facility] Comment on above: Order Comment: Speci men Type: BLOOD SPECIMEN Ordering Facility: [facility] Address: [address] [place] [address] Performed By: #### 5 7021-8 #### [facility] CLIA [id number] [address] [place] [address] [place] Platelet mean volume (Bld) [Entitic vol] 10.0 fL Normal 9.0-12.7 [facility] Comment on above: Order Comment: Speci men Type: BLOOD SPECIMEN Ordering Facility: [facility] Address: [address] [place] [address] Performed By: #### 5 7021-8 #### [facility] CLIA [id number] [address] [place] [address] [place] Platelets (Bld) [#/Vol] 157 10*3/uL Normal 150-400 [facility] Comment on above: Order Comment: Speci men Type: BLOOD SPECIMEN Ordering Facility: [facility] Address: [address] [place] [address] Performed By: #### 5 7021-8 #### [facility] CLIA [id number] [address] [place] [address] [place] RBC (Bld) [#/Vol] 4.56 10*6/uL Normal 3.90-5.20 [facility] Comment on above: Order Comment: Speci men Type: BLOOD SPECIMEN Ordering Facility: [facility] Address: [address] [place] [address] Performed By: #### 5 7021-8 #### [facility] CLIA [id number] [address] [place] [address] [place] WBC (Bld) [#/Vol] 13.15 10*3/uL High 3.70-11.00 [facility] Comment on above: Order Comment: Speci men Type: BLOOD SPECIMEN Ordering Facility: [facility] Address: [address] [place] [address] Performed By: #### 5 7021-8 #### [facility] CLIA [id number] [address] [place] [address] [place] GESTATIONAL GLUCOSE SCREEN, 1-HOUR, 50 GRAM, NON-FASTINGon 11-04-2024 Glucose [Mass/Vol] 103 mg/dL Normal 74-134 [facility] Comment on above: Order Comment: Speci men Type: BLOOD SPECIMEN Ordering Facility: [facility] Address: [address] [place] [address] Result Comment: [facility] Congress of Obstetricians and Gynecologists (Gordon/Conrad) guidelines state a gestational diabetes mellitus positive screen is made, in women not previously diagnosed with overt diabetes, when the 1 hr plasma glucose level is equal to or above 140 mg/dL. The [facility] [employer] [facility] recommends a 135 mg/dL cutoff. Performed By: #### G LTGST #### [facility] CLIA [id number] [address] [place] [address] [place] Reagin and Treponema pallidu m IgG and IgM [Interp]on 11-04-2024 T. pallidum IgG+IgM IA Ql (S) Non-Reactive Normal Nonreactive [facility] Comment on above: Order Comment: Speci men Type: BLOOD SPECIMEN Ordering Facility: [facility] Address: [address] [place] [address] Performed By: #### 7 3752-8 #### [facility] CLIA [id number] [address] [place] [address] [place] Reagin+T pallidum IgG+IgM Se rPl-Impon 11-04-2024 Reagin and Treponema pallidum IgG and IgM [Interp] Cannot exclude recent Treponemal infection if specimen collected within 7-10 days after appearance of suspect lesions or 2-3 weeks after an exposure. Clinical correlation is required. Normal [facility] Comment on above: Order Comment: Speci men Type: BLOOD SPECIMEN Ordering Facility: [facility] Address: [address] [place] [address] Performed By: #### 7 3752-8 #### [facility] CLIA [id number] [address] [place] [address] [place] Examination level ultrasound on 09-09-2024 Indication Detailed anatomic survey Maternal obesity, BMI >30 Impression The patient is referred for a detailed anatomic survey. - Single, live, intrauterine . - biometry is consistent with the established gestational age. - No malformations were visualized on a complete detailed anatomic survey. - The amniotic fluid volume is normal amount. - The placenta is posterior, fundal. - The Transabdominal cervical length measures 32 mm with no evidence of funneling or other dynamic changes. - Not all structural malformations can be detected by ultrasound examination. Recommendations Additional follow-up as clinically indicated. Maternal Assessment Height 178 cm Height (ft) 5 ft Height (in) 10 in Physical Exam Initial weight (lb) 220 lb Initial BMI 31.57 kg/m Maternal assessment other: 4 Para 1 REMOTE READ Method Transabdominal ultrasound examination. View: Suboptimal view: limited by position Roman . Number of fetuses: 1 Dating GA by prior assessment 20 w + 5 d LE[place] by prior assessment: 01/22/2025 Ultrasound examination on: 09/09/2024 GA by U/S based upon: AC, BPD, Femur, HC GA by U/S 21 w + 4 d [place] by U/S: 01/16/2025 Assigned: based on stated [place], selected on 09/09/2024 Assigned GA 20 w + 5 d Assigned [place]: 01/22/2025 General Evaluation Cardiac activity present. FHR 142 bpm. movements: present. Presentation: cephalic Placenta: Placental site: posterior, fundal Umbilical cord: Cord vessels: 3 vessel cord Amniotic fluid: Amount of AF: normal amount. MVP 5.2 cm Growth Overview Exam date GA BPD (mm) HC (mm) AC (mm) FL (mm) HL (mm) EFW (g) 08/11/2024 16w 4d 38 89% 143.5 76% 132.2 97% 22.6 64% 21.5 55% 208 97% 09/09/2024 20w 5d 49 54% 190.7 69% 182.7 97% 34.1 64% 34.6 84% 463 95% Biometry Standard BPD 49.0 mm 20w 6d 54% Hadlock OFD 69.6 mm 21w 5d 97% Nicolaides HC 190.7 mm 21w 2d 69% Tone Cerebellum tr 21.5 mm 20w 2d 52% Hill Nuchal fold 3.4 mm AC 182.7 mm 23w 1d 97% Hadlock Femur 34.1 mm 20w 6d 64% Tone Humerus 34.6 mm 21w 6d 84% Tone EFW 463 g 21w 6d 95% Hadlock EFW (lb) 1 lb EFW (oz) 0 oz EFW by: Hadlock (HC-AC-FL) Extended Flavoring Machine Operator 6.2 mm CM 3.4 mm 5% Nicolaides Extremities / Bony Struc FL / HC 0.18 15% Hadlock Other Structures FHR 142 bpm Anatomy Cranium: normal Lateral ventricles: normal Choroid plexus: normal Midline falx: normal Cavum septi pellucidi: normal Cerebellum: normal Cisterna magna: normal Head / Neck Vermis: normal Neck: normal Nuchal fold: normal Lips: normal Profile: normal Nose: normal Face Maxilla: normal Mandible: normal Orbits: normal Lens: normal 4-chamber view: normal RVOT view: normal LVOT view: normal 3-vessel view: normal 2-mflkjc-vowsnun view: normal Heart / Thorax Situs: situs solitus (normal) Aortic arch view: normal SVC: normal IVC: normal Cardiac axis: normal Rt lung: normal Lt lung: normal Diaphragm: normal Cord insertion: normal Stomach: normal Kidneys: normal Bladder: normal Genitals: normal Abdomen Abdom. wall: normal Cervical spine: normal Thoracic spine: normal Lumbar spine: normal Sacral spine: normal Arms: normal Legs: normal Rt upper arm: normal Rt forearm: normal Rt hand: normal Rt fingers: normal Lt upper arm: normal Lt forearm: normal Lt hand: normal Lt fingers: normal Rt upper leg: normal Rt lower leg: normal Rt foot: normal Lt upper leg: normal Lt lower leg: normal Lt foot: normal sex: male Wants to know sex: yes Maternal Structures Uterus / Cervix Uterus: Visualized Cervix: Visualized Approach: Transabdominal Cervical length 32.0 mm Other: Patient declined transvaginal ultrasound for cervical length. Ovaries / Tubes / Adnexa Rt ovary: Visualized Lt ovary: Visualized Performed By: Altagracia Mcdaniels RDMS, RVT Read By: Mariel Mcgee M.D. MATERNAL MEDICINE [facility] Radiology Study observation (narrative) [facility] CBC W Auto Differential pane l (Bld)on 08-11-2024 Basophils (Bld) [#/Vol] 0.03 10*3/uL Normal <0.11 [facility] Comment on above: Order Comment: Speci men Type: BLOOD SPECIMEN Ordering Facility: [facility] Address: [address] [place] [address] Performed By: #### 5 7021-8 #### [facility] CLIA [id number] [address] [place] [address] [place] Basophils/100 WBC (Bld) 0.3 % Normal [facility] Comment on above: Order Comment: Speci men Type: BLOOD SPECIMEN Ordering Facility: [facility] Address: [address] [place] [address] Performed By: #### 5 7021-8 #### [facility] CLIA [id number] [address] [place] [address] [place] Differential cell count method Nom (Bld) Auto Normal [facility] Comment on above: Order Comment: Speci men Type: BLOOD SPECIMEN Ordering Facility: [facility] Address: [address] [place] [address] Performed By: #### 5 7021-8 #### [facility] CLIA [id number] [address] [place] [address] [place] Eosinophils (Bld) [#/Vol] 0.10 10*3/uL Normal <0.46 [facility] Comment on above: Order Comment: Speci men Type: BLOOD SPECIMEN Ordering Facility: [facility] Address: [address] [place] [address] Performed By: #### 5 7021-8 #### [facility] CLIA [id number] [address] [place] [address] [place] Eosinophils/100 WBC (Bld) 1.1 % Normal [facility] Comment on above: Order Comment: Speci men Type: BLOOD SPECIMEN Ordering Facility: [facility] Address: [address] [place] [address] Performed By: #### 5 7021-8 #### [facility] CLIA [id number] [address] [place] [address] [place] Erythrocyte distribution width (RBC) [Ratio] 13.5 % Normal 11.5-15.0 [facility] Comment on above: Order Comment: Speci men Type: BLOOD SPECIMEN Ordering Facility: [facility] Address: [address] [place] [address] [place] [address] Performed By: #### 5 7021-8 #### [facility] CLIA [id number] [address] [place] [address] [place] Hematocrit (Bld) [Volume fraction] 39.7 % Normal 36.0-46.0 [facility] Comment on above: Order Comment: Speci men Type: BLOOD SPECIMEN Ordering Facility: [facility] Address: [facility] [place] [address] Performed By: #### 5 7021-8 #### [facility] CLIA [id number] [address] [place] [address] [place] Hemoglobin (Bld) [Mass/Vol] 13.9 g/dL Normal 11.5-15.5 [facility] Comment on above: Order Comment: Speci men Type: BLOOD SPECIMEN Ordering Facility: [facility] Address: [address] [place], [place] [address] Performed By: #### 5 7021-8 #### [facility] CLIA [id number] [address] [place] [address] [place] Immature granulocytes (Bld) [#/Vol] 0.03 10*3/uL Normal <0.10 [facility] Comment on above: Order Comment: Speci men Type: BLOOD SPECIMEN Ordering Facility: [facility] Address: [address] [place] [address] Performed By: #### 5 7021-8 #### [facility] CLIA [id number] [address] [place] [address] [place] Immature granulocytes/100 WBC (Bld) 0.3 % Normal [facility] Comment on above: Order Comment: Speci men Type: BLOOD SPECIMEN Ordering Facility: [facility] Address: [address] [place] [address] Performed By: #### 5 7021-8 #### [facility] CLIA [id number] [address] [place] [address] [place] Lymphocytes (Bld) [#/Vol] 1.82 10*3/uL Normal 1.00-4.00 [facility] Comment on above: Order Comment: Speci men Type: BLOOD SPECIMEN Ordering Facility: [facility] Address: [address] [place] [address] Performed By: #### 5 7021-8 #### [facility] CLIA [id number] [address] [place] [address] [place] Lymphocytes/100 WBC (Bld) 19.5 % Normal [facility] Comment on above: Order Comment: Speci men Type: BLOOD SPECIMEN Ordering Facility: [facility] Address: [address] [place] [address] Performed By: #### 5 7021-8 #### [facility] CLIA [id number] [address] [place] [address] [place] MCH (RBC) [Entitic mass] 28.3 pg Normal 26.0-34.0 [facility] Comment on above: Order Comment: Speci men Type: BLOOD SPECIMEN Ordering Facility: [facility] Address: [address] [place] [address] Performed By: #### 5 7021-8 #### [facility] CLIA [id number] [address] [place] [address] [place] MCHC (RBC) [Mass/Vol] 35.0 g/dL Normal 30.5-36.0 [facility] Comment on above: Order Comment: Speci men Type: BLOOD SPECIMEN Ordering Facility: [facility] Address: [address] [place] [address] Performed By: #### 5 7021-8 #### [facility] CLIA [id number] [address] [place] [address] [place] MCV (RBC) [Entitic vol] 80.7 fL Normal 80.0-100.0 [facility] Comment on above: Order Comment: Speci men Type: BLOOD SPECIMEN Ordering Facility: [facility] Address: [address] [place] [address] Performed By: #### 5 7021-8 #### [facility] CLIA [id number] [address] [place] [address] [place] Monocytes (Bld) [#/Vol] 0.34 10*3/uL Normal <0.87 [facility] Comment on above: Order Comment: Speci men Type: BLOOD SPECIMEN Ordering Facility: [facility] Address: [address] [place] [address] Performed By: #### 5 7021-8 #### [facility] CLIA [id number] [address] [place] [address] [place] Monocytes/100 WBC (Bld) 3.6 % Normal [facility] Comment on above: Order Comment: Speci men Type: BLOOD SPECIMEN Ordering Facility: [facility] Address: [address] [place] [address] Performed By: #### 5 7021-8 #### [facility] CLIA [id number] [address] [place] [address] [place] Neutrophils (Bld) [#/Vol] 7.00 10*3/uL Normal 1.45-7.50 [facility] Comment on above: Order Comment: Speci men Type: BLOOD SPECIMEN Ordering Facility: [facility] Address: [address] [place] [address] Performed By: #### 5 7021-8 #### [facility] CLIA [id number] [address] [place] [address] [place] Neutrophils/100 WBC (Bld) 75.2 % Normal [facility] Comment on above: Order Comment: Speci men Type: BLOOD SPECIMEN Ordering Facility: [facility] Address: [address] [place] [address] Performed By: #### 5 7021-8 #### [facility] CLIA [id number] [address] [place] [address] [place] Nucleated RBC (Bld) [#/Vol] 10*3/uL Normal <0.01 [facility] Comment on above: Order Comment: Speci men Type: BLOOD SPECIMEN Ordering Facility: [facility] Address: [address] [place] [address] Performed By: #### 5 7021-8 #### [facility] CLIA [id number] [address] [place] [address] [place] Nucleated RBC/100 WBC (Bld) [Ratio] 0.0 /100 WBC Normal [facility] Comment on above: Order Comment: Speci men Type: BLOOD SPECIMEN Ordering Facility: [facility] Address: [address] [place] [address] Performed By: #### 5 7021-8 #### [facility] CLIA [id number] [address] [place] [address] [place] Platelet mean volume (Bld) [Entitic vol] 9.8 fL Normal 9.0-12.7 [facility] Comment on above: Order Comment: Speci men Type: BLOOD SPECIMEN Ordering Facility: [facility] Address: [address] [place] [address] Performed By: #### 5 7021-8 #### [facility] CLIA [id number] [address] [place] [address] [place] Platelets (Bld) [#/Vol] 168 10*3/uL Normal 150-400 [facility] Comment on above: Order Comment: Speci men Type: BLOOD SPECIMEN Ordering Facility: [facility] Address: [address] [place] [address] Performed By: #### 5 7021-8 #### [facility] CLIA [id number] [address] [place] [address] [place] RBC (Bld) [#/Vol] 4.92 10*6/uL Normal 3.90-5.20 [facility] Comment on above: Order Comment: Speci men Type: BLOOD SPECIMEN Ordering Facility: [facility] Address: [facility] [place] [address] Performed By: #### 5 7021-8 #### [facility] CLIA [id number] [address] WBC (Bld) [#/Vol] 9.32 10*3/uL Normal 3.70-11.00 [facility] Comment on above: Order Comment: Speci men Type: BLOOD SPECIMEN Ordering Facility: [facility] Address: [address] [place] [address] Performed By: #### 5 7021-8 #### [facility] CLIA [id number] [address] [place] [address] STATES [place] [facility] Examination level ultrasound on 08-11-2024 Indication Early anatomic survey Transfer of care, Maternal obesity, BMI >30 Impression REMOTE READ The patient is referred for an early anatomic survey because of identified risk factors. - Single, live, intrauterine . - biometry is consistent with the established gestational age. - No malformations were visualized on a complete early anatomic assessment. - The amniotic fluid volume is normal amount. - The placenta is posterior. - Not all structural malformations can be detected by ultrasound examination. Recommendations - A detailed anatomic survey at 20 weeks is indicated secondary to increased risk. Maternal Assessment Height 178 cm Height (ft) 5 ft Height (in) 10 in Physical Exam Initial weight (lb) 220 lb Initial BMI 31.57 kg/m Maternal assessment other: 4 Para 1 Method Transabdominal ultrasound examination. View: Suboptimal view: limited by early gestational age Roman . Number of fetuses: 1 Dating GA by prior assessment 16 w + 4 d LEONA by prior assessment: 01/22/2025 Ultrasound examination on: 08/11/2024 GA by U/S based upon: AC, BPD, Femur, HC GA by U/S 17 w + 5 d LEONA by U/S: 01/14/2025 Assigned: based on stated LEONA, selected on 08/11/2024 Assigned GA 16 w + 4 d Assigned LEONA: 01/22/2025 General Evaluation Cardiac activity present. FHR 144 bpm. movements: present. Presentation: transverse head left Placenta: Placental site: posterior Umbilical cord: Cord vessels: 3 vessel cord Amniotic fluid: Amount of AF: normal amount Biometry Standard BPD 38.0 mm 17w 4d 89% Hadlock OFD 50.3 mm 17w 1d 94% Nicolaides HC 143.5 mm 17w 3d 76% Otne AC 132.2 mm 18w 5d 97% Hadlock Femur 22.6 mm 16w 6d 64% Tone Humerus 21.5 mm 16w 4d 55% Tone EFW 208 g 17w 5d 97% Hadlock EFW (lb) 0 lb EFW (oz) 7 oz EFW by: Hadlock (HC-AC-FL) Extended Flavoring Machine Operator 5.0 mm Extremities / Bony Struc FL / HC 0.16 25% Hadlock Other Structures FHR 144 bpm Anatomy Cranium: normal Lateral ventricles: normal Choroid plexus: normal Midline falx: normal Cerebellum: normal Cisterna magna: normal Lips: normal 4-chamber view: normal RVOT view: normal LVOT view: normal 3-vessel view: normal 0-bevcfb-xcvgmog view: normal Heart / Thorax Diaphragm: normal Cord insertion: normal Stomach: normal Kidneys: normal Bladder: normal Cervical spine: normal Thoracic spine: normal Lumbar spine: normal Sacral spine: normal Arms: normal Legs: normal Rt upper arm: normal Rt forearm: normal Rt hand: normal Lt upper arm: normal Lt forearm: normal Lt hand: normal Rt upper leg: normal Rt lower leg: normal Rt foot: normal Lt upper leg: normal Lt lower leg: normal Lt foot: normal sex: male Wants to know sex: yes Maternal Structures Uterus / Cervix Uterus: Visualized Cervix: Visualized Approach: Transabdominal Cervical length 41.3 mm Ovaries / Tubes / Adnexa Rt ovary: Not visualized Lt ovary: Visualized Performed By: Altagracia Mcdaniels RDMS, RVT Read By: Mariel Mcgee M.D. MATERNAL MEDICINE [facility] Radiology Study observation (narrative) [facility] HIV 1+2 Ab IA Qlon 5 HIV 1 and 2 Ab IA.rapid Nom (S/P/Bld) Normal [facility] Comment on above: Order Comment: Speci men Type: BLOOD SPECIMEN Ordering Facility: [facility] Address: [address] [place] [address] Result Comment: Test not indicated. Performed By: #### 7 3752-8, 39345-6 #### [facility] CLIA [id number] [address] [place] [address] [place] HIV 1+2 Ab+HIV1 p24 Ag IA Ql Non-Reactive Normal Nonreactive [facility] Comment on above: Order Comment: Speci men Type: BLOOD SPECIMEN Ordering Facility: [facility] Address: [address] [place] [address] Performed By: #### 7 3752-8, 97801-0 #### [facility] CLIA [id number] [address] [place] [address] [place] HIV immunoassay testing algorithm interpretation (S/P/Bld) [Interp] Normal [facility] Comment on above: Order Comment: Speci men Type: BLOOD SPECIMEN Ordering Facility: [facility] Address: [address] [place] [address] Result Comment: No e vidence of HIV-1 or HIV-2 infection. Should recent infection be suspected, repeat testing may be considered 2-3 weeks after this draw. [place] Rev. Code 3701.243(E): This information has been disclosed to you from confidential records protected from disclosure by state law. ???You shall make no further disclosure of this information without the specific, written, and informed release of the individual to whom it pertains or as otherwise permitted by state law. A general authorization for the release of medical or other information is not sufficient for the purpose of the release of HIV test results or diagnoses. Performed By: #### 7 3752-8, 12093-3 #### [facility] CLIA [id number] [address] [place] [address] [place] HbA1c (Bld)on 08-11-2024 Average glucose Estimated from glycated hemoglobin (Bld) [Mass/Vol] 77 mg/dL Normal [facility] Comment on above: Order Comment: Speci men Type: BLOOD SPECIMEN Ordering Facility: [facility] Address: [address] [place] [address] Result Comment: eAG: (Estimated average glucose) is a calculated value from HgbA1c and is sales representative electric service of the average blood glucose level in the last 2-3 month period. Performed By: #### 5 5454-3 #### [facility] CLIA [id number] [address] [place] [address] [place] HbA1c (Bld) [Mass fraction] 4.3 % Normal 4.3-5.6 [facility] Comment on above: Order Comment: [facility] Type: BLOOD SPECIMEN Ordering Facility: [facility] Address: [address] [place] [address] Result Comment: [place] Diabetes Association guidelines indicate that patients with HgbA1c in the range 5.7-6.4% are at increased risk for development of diabetes, and intervention by lifestyle modification may be beneficial. HgbA1c greater or equal to 6.5% is considered diagnostic of diabetes. Performed By: #### 5 5454-3 #### [facility] CLIA [id number] [address] [place] [address] [place] Reagin and Treponema pallidu m IgG and IgM [Interp]on 08-11-2024 T. pallidum IgG+IgM IA Ql (S) Non-Reactive Normal Nonreactive [facility] Comment on above: Order Comment: [facility] Type: BLOOD SPECIMEN Ordering Facility: [facility] Address: [address] [place] [address] Performed By: #### 7 3752-8, 77662-8 #### [facility] CLIA [id number] [address] [place] [address] [place] Reagin+T pallidum IgG+IgM Se rPl-Impon 08-11-2024 Reagin and Treponema pallidum IgG and IgM [Interp] Cannot exclude recent Treponemal infection if specimen collected within 7-10 days after appearance of suspect lesions or 2-3 weeks after an exposure. Clinical correlation is required. Normal [facility] Comment on above: Order Comment: Speci men Type: BLOOD SPECIMEN Ordering Facility: [facility] Address: [address] [place] [address] Performed By: #### 7 3752-8, 58060-9 #### [facility] CLIA [id number] [address] [place] [address] [place] BACTERIAL VAGINOSIS NAATon 0 07-29-2024 Lactobacillus crispatus+gasseri+je nsenii + Gardnerella vaginalis + Atopobium vaginae rRNA MOLINA+probe Ql (Vag fld) Not detected Normal Not detected [facility] Comment on above: Order Comment: Speci men Type: SWAB Ordering Facility: [facility] Address: [address] [place] [address] Performed By: #### Jasmyn VAMP, 76126-9 #### [facility] CLIA [id number] [address] [place] [address] [place] Bacteria Ur Culton Bacteria identified Cx Nom (U) ORGANISM ID: 1 50,000-<100,000 CFU/ml Normal urogenital morgan Normal [facility] Comment on above: Performed By: #### Jasmyn VAMP, 01653-5 #### [facility] CLIA [id number] [address] [place] [address] [place] C. trachomatis+N. gonorrhoea e DNA MOLINA+probe Ql (Unsp spec)on 07-29-2024 C. trachomatis rRNA MOLINA+probe Ql (Unsp spec) Not detected Normal Not detected [facility] Comment on above: Order Comment: Speci men Type: SWAB Ordering Facility: [facility] Address: [address] [place] [address] Performed By: #### Jasmyn VAMP, 47963-2 #### [facility] CLIA [id number] [address] [place] [address] [place] N. gonorrhoeae rRNA MOLINA+probe Ql (Unsp spec) Not detected Normal Not detected [facility] Comment on above: Order Comment: Speci men Type: SWAB Ordering Facility: [facility] Address: [address] [place] [address] Performed By: #### Jasmyn MILLS, 94036-8 #### [facility] CLIA [id number] [address] [place] [address] [place] FLORENCIO/TRICHOMONAS NAATon 0 07-29-2024 C. glabrata RNA MOLINA+probe Ql (Vag fld) Not detected Normal Not detected [facility] Comment on above: Order Comment: Speci men Type: SWAB Ordering Facility: [facility] Address: [address] [place] [address] Performed By: #### Jasmyn MILLS, 54610-7 #### [facility] CLIA [id number] [address] [place] [address] [place] Florencio sp DNA MOLINA+probe Ql (Vag fld) Not detected Normal Not detected [facility] Comment on above: Order Comment: Speci men Type: SWAB Ordering Facility: [facility] Address: [address] [place] [address] Result Comment: The Florencio species group target includes C. albicans, C. tropicalis, C. parapsilosis, and C. dubliniensis. Performed By: #### Jasmyn MILLS, 46111-8 #### [facility] CLIA [id number] [address] [place] [address] [place] T. vaginalis DNA MOLINA+probe Ql (Unsp spec) Not detected Normal Not detected [facility] Comment on above: Order Comment: Speci men Type: SWAB Ordering Facility: [facility] Address: [address] [place] [address] Performed By: #### Jasmyn MILLS, 32282-7 #### [facility] CLIA [id number] [address] [place] [address] [place] Narrative [Interpretat ion] Study observation.general transvaginal 1st trimester USon 07-18-2024 IMPRESSION: 1. Single live intrauterine gestation at approximately 13 weeks 6 days with a heart rate of 150 bpm. 2. Fluid within the endocervical canal. RADIOLOGY EXAM: US OB TRANSVAGINAL/CERVICAL LENGTH HISTORY: eval for ectopic COMPARISON: None. TECHNIQUE: Transvaginal ultrasound of the pelvis was performed using Duplex Doppler. FINDINGS: Ultrasound images demonstrate a gravid uterus with a gestational sac containing a well-defined embryo with a crown rump length measuring 7.8 cm indicative of a 13 week 6 day gestation. Embryonic cardiac activity is noted at a rate of 150 beats per minute. The placenta is not yet visible due to the early gestational age. The amniotic fluid is unable to be assessed due to the early gestational age. A small amount of fluid is seen within the endocervical canal. The cervix measures up to 3.2 cm in length. The ovaries were not visualized. No free fluid is noted within the cul-de-sac. RADIOLOGY Betito Smith MD - 07/18/2024 EXAM: US OB TRANSVAGINAL/CERVICAL LENGTH HISTORY: eval for ectopic COMPARISON: None. TECHNIQUE: Transvaginal ultrasound of the pelvis was performed using Duplex Doppler. FINDINGS: Ultrasound images demonstrate a gravid uterus with a gestational sac containing a well-defined embryo with a crown rump length measuring 7.8 cm indicative of a 13 week 6 day gestation. Embryonic cardiac activity is noted at a rate of 150 beats per minute. The placenta is not yet visible due to the early gestational age. The amniotic fluid is unable to be assessed due to the early gestational age. A small amount of fluid is seen within the endocervical canal. The cervix measures up to 3.2 cm in length. The ovaries were not visualized. No free fluid is noted within the cul-de-sac. IMPRESSION IMPRESSION: 1. Single live intrauterine gestation at approximately 13 weeks 6 days with a heart rate of 150 bpm. 2. Fluid within the endocervical canal. [facility] Radiology Study observation (narrative) [facility] Narrative [Interpretat ion] Study observation.general transvaginal 1st trimester USOrdered By: Betito Smith on 07-18-2024 [facility] Work Phone: US OB TRANSVAGINAL/CERVICAL LENGTHon 07-18-2024 US OB TRANSVAGINAL/CERVICA L LENGTH EXAM: US OB TRANSVAGINAL/CERVICAL LENGTH HISTORY: eval for ectopic COMPARISON: None. TECHNIQUE: Transvaginal ultrasound of the pelvis was performed using Duplex Doppler. FINDINGS: Ultrasound images demonstrate a gravid uterus with a gestational sac containing a well-defined embryo with a crown rump length measuring 7.8 cm indicative of a 13 week 6 day gestation. Embryonic cardiac activity is noted at a rate of 150 beats per minute. The placenta is not yet visible due to the early gestational age. The amniotic fluid is unable to be assessed due to the early gestational age. A small amount of fluid is seen within the endocervical canal. The cervix measures up to 3.2 cm in length. The ovaries were not visualized. No free fluid is noted within the cul-de-sac. IMPRESSION: 1. Single live intrauterine gestation at approximately 13 weeks 6 days with a heart rate of 150 bpm. 2. Fluid within the endocervical canal. [facility] ABO/RH(D)on 07-12-2024 ABO/RH(D) ABO/RH(D) O POSITIVE Testing performed at [address] Comment on above: Performed By: #### A BRH #### [place] [address] ANTIBODY SCREENon 07-12-2024 Antibody screen ANTIBODY SCREEN NEGA TIVE WORKUP EXPIRES 07/15/2024,2359 Testing performed at [address] Comment on above: Performed By: #### R ESCRN #### [place] [address] FAX REQUESTon 07-12-2024 [facility]X [facility] Comment on above: Result Comment: Test ing performed at [place] [address] Performed By: #### F X #### [place] [address] ABO/RH(D)on 01-27-2024 ABO/RH(D) ABO/RH(D) O POSITIVE Testing performed at [address] [facility] [address] [facility] Comment on above: Performed By: #### A [facility] #### Testing performed at [facility] [address] [place] [address] ANTIBODY SCREENon 01-27-2024 Antibody screen ANTIBODY SCREEN NEGA TIVE WORKUP EXPIRES 01/29/2024,2359 Testing performed at [place] [address] Normal [facility] Comment on above: Performed By: #### R ESCRN #### Testing performed at [facility] [address] [place] [id number] CBCon 01-27-2024 ABSOLUTE BAS 0.1 10*3/uL Normal 0.0-0.2 [facility] Comment on above: Performed By: #### G HIV, ACBC #### Testing performed at [address] [address] ABSOLUTE EOS 0.2 10*3/uL Normal 0.0-0.7 [facility] Comment on above: Performed By: #### G HIV, ACBC #### Testing performed at [address] [address] ABSOLUTE NEUTROPHIL COUNT 4.7 10*3/uL Normal 1.4-6.5 [facility] Comment on above: Performed By: #### G HIV, ACBC #### Testing performed at [address] [address] Basophils/100 WBC (Bld) 0.9 % Normal 0.0-2.0 [facility] Comment on above: Performed By: #### G HIV, ACBC #### Testing performed at [address] [address] DTYPE AUTO DIFF Normal [facility] Comment on above: Performed By: #### G HIV, ACBC #### Testing performed at [address] [address] Eosinophils/100 WBC (Bld) 2.1 % Normal 0.0-11.0 [facility] Comment on above: Performed By: #### G HIV, ACBC #### Testing performed at [address] [address] Lymphocytes (Bld) [#/Vol] 2.1 10*3/uL Normal 1.2-3.4 [facility] Comment on above: Performed By: #### G HIV, ACBC #### Testing performed at [address] [address] Lymphocytes/100 WBC (Bld) 28.3 % Normal 20.0-55.0 [facility] Comment on above: Performed By: #### G HIV, ACBC #### Testing performed at [address] [address] Monocytes (Bld) [#/Vol] 0.4 10*3/uL Normal 0.0-0.7 [facility] Comment on above: Performed By: #### G HIV, ACBC #### Testing performed at [address] [address] Monocytes/100 WBC (Bld) 4.9 % Normal 0.0-10.0 [facility] Comment on above: Performed By: #### G HIV, ACBC #### Testing performed at [address] [address] Neutrophils/100 WBC (Bld) 63.8 % Normal 37.0-75.0 [facility] Comment on above: Performed By: #### G HIV, ACBC #### Testing performed at [address] [address] Erythrocyte distribution width (RBC) [Ratio] 13.4 % Normal 11.5-14.5 [facility] Comment on above: Performed By: #### G HIV, ACBC #### Testing performed at [address] [address] Hematocrit (Bld) [Volume fraction] 44.5 % Normal 36.0-48.0 [facility] Comment on above: Performed By: #### G HIV, ACBC #### Testing performed at [address] [address] Hemoglobin (Bld) [Mass/Vol] 15.1 g/dL Normal 12.0-16.0 [facility] Comment on above: Performed By: #### G HIV, ACBC #### Testing performed at [address] [address] MCH (RBC) [Entitic mass] 28.2 pg Normal 26.0-35.0 [facility] Comment on above: Performed By: #### G HIV, ACBC #### Testing performed at [address] [address] MCHC (RBC) [Mass/Vol] 34.0 g/dL Normal 27.0-37.0 [facility] Comment on above: Performed By: #### G HIV, ACBC #### Testing performed at [address] [address] MCV (RBC) [Entitic vol] 83.0 fL Normal 80.0-100.0 [facility] Comment on above: Performed By: #### G HIV, ACBC #### Testing performed at [address] [address] Platelet mean volume (Bld) [Entitic vol] 8.4 fL Normal 7.4-11.0 [facility] Comment on above: Performed By: #### G HIV, ACBC #### Testing performed at [address] [address] Platelets (Bld) [#/Vol] 188 10*3/uL Normal 130-400 [facility] Comment on above: Performed By: #### G HIV, ACBC #### Testing performed at [address] [address] RBC (Bld) [#/Vol] 5.36 10*6/uL Normal 4.0-5.4 [facility] Comment on above: Performed By: #### G HIV, ACBC #### Testing performed at [address] [address] WBC (Bld) [#/Vol] 7.3 10*3/uL Normal 3.6-11.0 [facility] Comment on above: Performed By: #### G HIV, ACBC #### Testing performed at [address] [address] CBC, EDIF, PLATELETon 2023 ABSOLUTE BASOPHIL COUNT 0.1 10*3/uL 0.0 - 0.2 10*3/uL [facility] Basophils/100 WBC (Bld) 0.9 % 0.0 - 2.0 % [facility] Differential cell count method Nom (Bld) AUTO DIFF % [facility] Eosinophils (Bld) [#/Vol] 0.2 10*3/uL 0.0 - 0.7 10*3/uL [facility] Eosinophils/100 WBC (Bld) 2.1 % 0.0 - 11.0 % [facility] Erythrocyte distribution width (RBC) [Ratio] 13.4 % 11.5 - 14.5 % [facility] Hematocrit (Bld) [Volume fraction] 44.5 % 36.0 - 48.0 % [facility] Hemoglobin (Bld) [Mass/Vol] 15.1 g/dL [facility] Lymphocytes (Bld) [#/Vol] 2.1 10*3/uL 1.2 - 3.4 10*3/uL [facility] Lymphocytes/100 WBC (Bld) 28.3 % 20.0 - 55.0 % [facility] MCH (RBC) [Entitic mass] 28.2 pg 26.0 - 35.0 PG [facility] MCHC (RBC) [Mass/Vol] 34.0 g/dL [facility] MCV (RBC) [Entitic vol] 83.0 fL [facility] Monocytes (Bld) [#/Vol] 0.4 10*3/uL 0.0 - 0.7 10*3/uL [facility] Monocytes/100 WBC (Bld) 4.9 % 0.0 - 10.0 % [facility] Neutrophils (Bld) [#/Vol] 4.7 10*3/uL 1.4 - 6.5 10*3/uL [facility] Neutrophils/100 WBC (Bld) 63.8 % 37.0 - 75.0 % [facility] Platelet mean volume (Bld) [Entitic vol] 8.4 fL [facility] Platelets (Bld) [#/Vol] 188 10*3/uL 130 - 400 10*3/uL [facility] RBC (Bld) [#/Vol] 5.36 10*6/uL 4.0 - 5.4 10*6/uL [facility] WBC (Bld) [#/Vol] 7.3 10*3/uL 3.6 - 11.0 10*3/uL [facility] FAX REQUESTon 01-27-2024 FAX TO [facility] Comment on above: Performed By: #### F X #### Testing performed at [address] [address] HIV 1,2 ABon 01-27-2024 HIV 1,2 Non-Reactive Normal NONREACTIVE [facility] Comment on above: Performed By: #### G HIV, ACBC #### Testing performed at [address] [address] No Panel Informationon 01-26 Interpretation and review of laboratory results Abnormal [facility] RAPID HIV-1/HIV-2 AB WITH P2 4 ANTIGENon 01-27-2024 HIV 1+2 Ab IA Ql Non-Reactive NONREACTIVE [facility] URINALYSIS, MACROon 01-27-20 24 Bilirubin Ql (U) Negative NEGATIVE [facility] Clarity (U) CLEAR CLEAR [facility] Color (U) YELLOW YELLOW [facility] Glucose Test strip (U) [Mass/Vol] Negative NEGATIVE mg/dl [facility] Hemoglobin Ql (U) MODERATE Abnormal NEGATIVE [facility] Ketones (U) [Mass/Vol] Negative NEGATIVE mg/dl [facility] Leukocyte esterase Test strip Ql (U) Negative NEGATIVE [facility] Nitrite Ql (U) Negative NEGATIVE [facility] pH (U) 5.5 [pH] 5.0 - 7.0 [facility] Protein Ql (U) Negative NEGATIVE mg/dl [facility] Specific gravity (U) [Rel density] >1.030 High 1.010 - 1.025 [facility] Urobilinogen (U) [Mass/Vol] 0.2 mg/dL [facility] URINE MACROSCOPICon 01-27-20 24 Bilirubin Ql (U) Negative Normal NEGATIVE [facility] Comment on above: Performed By: #### U MAC, UMIC #### Testing performed at [address] [address] Clarity (U) CLEAR Normal CLEAR [facility] Comment on above: Performed By: #### U MAC, UMIC #### Testing performed at [address] [address] Color (U) YELLOW Normal YELLOW [facility] Comment on above: Performed By: #### U MAC, UMIC #### Testing performed at [address] [address] Glucose Ql (U) Negative Normal NEGATIVE [facility] Comment on above: Performed By: #### U MAC, UMIC #### Testing performed at [address] [address] pH (U) 5.5 [pH] Normal 5.0-7.0 [facility] Comment on above: Performed By: #### U MAC, UMIC #### Testing performed at [address] [address] URINE HEMOGLOBIN MODERATE Abnormal NEGATIVE [facility] Comment on above: Performed By: #### U MAC, UMIC #### Testing performed at [address] [address] URINE KETONE Negative Normal NEGATIVE [facility] Comment on above: Performed By: #### U MAC, UMIC #### Testing performed at [address] [address] URINE LEUKOTEST Negative Normal NEGATIVE [facility] Comment on above: Performed By: #### U MAC, UMIC #### Testing performed at [address] [address] URINE NITRATES Negative Normal NEGATIVE [facility] Comment on above: Performed By: #### U MAC, UMIC #### Testing performed at [address] [address] URINE SPEC GRAVITY >1.030 High 1.010-1.025 [facility] Comment on above: Performed By: #### U MAC, UMIC #### Testing performed at [address] [address] URINE TOTAL PROTEIN Negative Normal NEGATIVE [facility] Comment on above: Performed By: #### U MAC, UMIC #### Testing performed at [address] [address] Urobilinogen Qn (U) 0.2 {Yumi'U}/dL Normal 0.2-1.0 [facility] Comment on above: Performed By: #### U MAC, UMIC #### Testing performed at [address] [address] URINE MICROSCOPICon 01-27-20 24 Bacteria LM.HPF (Urine sed) [#/Area] 1+ Abnormal NEGATIVE [facility] Casts LM.LPF (Urine sed) [#/Area] NONE NONE /LPF [facility] Crystals LM Nom (Urine sed) NONE NONE [facility] Epithelial cells LM Ql (Urine sed) 10 TO 20 /HPF [facility] Mucus Ql (Urine sed) Negative NEGATIVE [facility] RBC LM.HPF (Urine sed) [#/Area] 1 TO 5 NEGATIVE /HPF [facility] Urine sediment comments LM Shakeel (Urine sed) POSSIBLY CONTAMINATED SPECIMEN, CULTURE MUST BE ORDERED SEPARATELY IF DEEMED NECESSARY. [facility] WBC LM.HPF (Urine sed) [#/Area] Negative NEGATIVE /HPF [facility] BACTERIA 1+ Abnormal NEGATIVE [facility] Comment on above: Performed By: #### U MAC, UMIC #### Testing performed at [address] [address] CASTS NONE [facility] Comment on above: Performed By: #### U MAC, UMIC #### Testing performed at [address] [place] [address] CRYSTAL NONE [facility] Comment on above: Performed By: #### U MAC, UMIC #### Testing performed at [address] [address] Epithelial cells LM Ql (Urine sed) 10 TO 20 Normal [facility] Comment on above: Performed By: #### U MAC, UMIC #### Testing performed at [address] [address] Mucus Ql (Urine sed) Negative Normal NEGATIVE [facility] Comment on above: Performed By: #### U MAC, UMIC #### Testing performed at [address] [address] URINE COMMENT POSSIBLY CONTAMINATE D SPECIMEN, CULTURE MUST BE ORDERED SEPARATELY IF DEEMED NECESSARY. Normal [facility] Comment on above: Performed By: #### U MAC, UMIC #### Testing performed at [address] [address] URINE RBC'S 1 TO 5 Normal NEGATIVE [facility] Comment on above: Performed By: #### U MAC, UMIC #### Testing performed at [facility] [address] [place] [address] URINE WBC'S Negative Normal NEGATIVE [facility] Comment on above: Performed By: #### U VENKAT UMIC #### Testing performed at [address] [address] IUD Removalon 10-27-2023 Mireille Ely MD 10/27/2023 3:35 PM IUD Removal Date/Time: 10/27/2023 3:32 PM Performed by: Mireille Ely MD Authorized by: Mireille Ely MD Consent: Consent obtained: Verbal Consent given by: Patient Procedure risks and benefits discussed: yes Procedure: Removed with no complications: yes Comments: Patient to return in July for her annual exam. [facility] Work Phone: [facility] Work Phone: Cervical AND or Vaginal cyto logy studyon 07-15-2023 Cytology Cervical or vaginal smear or scraping study Pathology report.total SEE COMMENT Gynecologic Cytology Case: [id number] Authorizing Provider: Mireille Ely MD Collected: 07/15/2023 151 Ordering Location: [facility] Received: 07/15/2023 1515 Office Building First Screen: SHAYLEE Oakley Pathologist: Cindy Vuong MD Specimen: ThinPrep Liquid-Based Pap-Imaging System Screen, CERVIX, SCREENING Cytology study comment SEE COMMENT Squamous and/or Glandular Abnormality A. THINPREP PAP CERVIX, SCREENING - Specimen Adequacy Satisfactory for evaluation; endocervical/transformati on zone component is present General Categorization Epithelial cell abnormality- squamous cell, see interpretation. Descriptive Interpretation Atypical squamous cells of undetermined significance (ASC-US) - Cervix An HPV-including Genotype test is performed (per requisition) by the [facility] at [facility]. Laboratory comment SEE COMMENT Slide(s) initially screened by SHAYLEE Oakley at [address] [id number] By the signature on this report, the individual or group listed as making the Final Interpretation/Diagnosis certifies that they have reviewed this case. This specimen has been analyzed by the iCabbiPrep Imaging System ([employer] an automated imaging and review system, which assists the laboratory in evaluating cells on ThinPrep Pap tests. Following automated imaging, selected benoit from every slide were reviewed by a district manager in training and/or pathologist. Cervical cytology is a screening procedure primarily for squamous cancers and precursors and has associated false-negative and false-positives results as evidenced by published data. Your patient's test should be interpreted in this context, together with the patient's history and clinical findings. Regular sampling and follow-up of unexplained clinical signs and symptoms are recommended to minimize false negative results. LAB AP HPV HR Reflex if ASCUS only LAB AP HPV GENOTYPE QUESTION Yes LAB AP CONTRACEPTIVE HISTORY IUD Normal [facility] HPV 16 and 18 and 31+33+35+3 9+45+51+52+56+58+59+66+68 DNA Pnl (Cvx)on 07-15-2023 HPV 16 DNA MOLINA+probe Ql (Unsp spec) Negative Normal Negative [facility] Comment on above: Order Comment: Testi ng for high-risk (HR) types of human papilloma virus (HPV) is performed by the [employer] theo HPV Test. The theo HPV Test is a qualitative polymerase chain reaction that amplifies DNA of HPV16, HPV18, and 12 other high-risk HPV types (31, 33, 35, 39, 45, 51, 52, 56, 58, 59, 66, and 68) associated with cervical cancer and its precursor lesions. A positive result indicates the presence of HPV DNA due to one or more of the 14 genotypes: 16, 18, 31, 33, 35, 39, 45, 51, 52, 56, 58, 59, 66, and 68. Negative results indicates HPV DNA concentrations are undectectable or below the pre-set threshold for detection. False negative results may be associated with unoptimized sampling. A negative HR HPV result does not exclude the possibility of future cytologic HSIL or underlying CIN2-3 or cancer. This test is approved by the [place] Food and Drug Administration. Results of this test should be interpreted in conjunction with the patient Pap test results. Please refer to ASCCP current quidelines for the use of HPV DNA testing, result interpretation, and patient management. The performance of this test was verified by the [facility] at [facility]. The lab is certified under the Clinical Laboratory Amendments of 1988 (CLIA 88) as qualified to perform high complexity clinical laboratory testing. PERFORMING LAB LOCATIONS [facility]: [address] [place] [address] Performed By: #### 7 1432-9 #### DIXIE Phelps ([id number]) [facility] ([facility]) [address] [place] [address] HPV 18 DNA MOLINA+probe Ql (Unsp spec) Negative Normal Negative [facility] Comment on above: Order Comment: Testi ng for high-risk (HR) types of human papilloma virus (HPV) is performed by the [employer] theo HPV Test. The theo HPV Test is a qualitative polymerase chain reaction that amplifies DNA of HPV16, HPV18, and 12 other high-risk HPV types (31, 33, 35, 39, 45, 51, 52, 56, 58, 59, 66, and 68) associated with cervical cancer and its precursor lesions. A positive result indicates the presence of HPV DNA due to one or more of the 14 genotypes: 16, 18, 31, 33, 35, 39, 45, 51, 52, 56, 58, 59, 66, and 68. Negative results indicates HPV DNA concentrations are undectectable or below the pre-set threshold for detection. False negative results may be associated with unoptimized sampling. A negative HR HPV result does not exclude the possibility of future cytologic HSIL or underlying CIN2-3 or cancer. This test is approved by the US Food and Drug Administration. Results of this test should be interpreted in conjunction with the patient Pap test results. Please refer to ASCCP current quidelines for the use of HPV DNA testing, result interpretation, and patient management. The performance of this test was verified by the [facility] at [facility]. The lab is certified under the Clinical Laboratory Amendments of 1988 (CLIA 88) as qualified to perform high complexity clinical laboratory testing. PERFORMING LAB LOCATIONS [facility]: [address] [place] [address].[place] [address] Performed By: #### 7 1432-9 #### DIXIE Phelps ([id number]) [facility] ([facility]) [address] [place] [address] HPV 31+33+35+39+45+51+52 +56+58+59+66+68 DNA MOLINA+probe Ql (Genital specimen) Negative Normal Negative [facility] Comment on above: Order Comment: Testi ng for high-risk (HR) types of human papilloma virus (HPV) is performed by the [employer] the[employer] HPV Test. The theo HPV Test is a qualitative polymerase chain reaction that amplifies DNA of HPV16, HPV18, and 12 other high-risk HPV types (31, 33, 35, 39, 45, 51, 52, 56, 58, 59, 66, and 68) associated with cervical cancer and its precursor lesions. A positive result indicates the presence of HPV DNA due to one or more of the 14 genotypes: 16, 18, 31, 33, 35, 39, 45, 51, 52, 56, 58, 59, 66, and 68. Negative results indicates HPV DNA concentrations are undectectable or below the pre-set threshold for detection. False negative results may be associated with unoptimized sampling. A negative HR HPV result does not exclude the possibility of future cytologic HSIL or underlying CIN2-3 or cancer. This test is approved by the US Food and Drug Administration. Results of this test should be interpreted in conjunction with the patient Pap test results. Please refer to ASCCP current quidelines for the use of HPV DNA testing, result interpretation, and patient management. The performance of this test was verified by the [facility] at [facility]. The lab is certified under the Clinical Laboratory Amendments of 1988 (CLIA 88) as qualified to perform high complexity clinical laboratory testing. PERFORMING LAB LOCATIONS [facility]: [address] [place] [address] Performed By: #### 7 1432-9 #### DIXIE Phelps ([id number]) [facility] ([facility]) [address] [place] [address] Human papilloma virus high-risk genotypes panel Negative Normal Negative [facility] Comment on above: Order Comment: Testi ng for high-risk (HR) types of human papilloma virus (HPV) is performed by the [employer] the[employer] HPV Test. The theo HPV Test is a qualitative polymerase chain reaction that amplifies DNA of HPV16, HPV18, and 12 other high-risk HPV types (31, 33, 35, 39, 45, 51, 52, 56, 58, 59, 66, and 68) associated with cervical cancer and its precursor lesions. A positive result indicates the presence of HPV DNA due to one or more of the 14 genotypes: 16, 18, 31, 33, 35, 39, 45, 51, 52, 56, 58, 59, 66, and 68. Negative results indicates HPV DNA concentrations are undectectable or below the pre-set threshold for detection. False negative results may be associated with unoptimized sampling. A negative HR HPV result does not exclude the possibility of future cytologic HSIL or underlying CIN2-3 or cancer. This test is approved by the US Food and Drug Administration. Results of this test should be interpreted in conjunction with the patient Pap test results. Please refer to ASCCP current quidelines for the use of HPV DNA testing, result interpretation, and patient management. The performance of this test was verified by the [facility] at [facility]. The lab is certified under the Clinical Laboratory Amendments of 1988 (CLIA 88) as qualified to perform high complexity clinical laboratory testing. PERFORMING LAB LOCATIONS [facility]: [address] [place] [address] Performed By: #### 7 1432-9 #### DIXIE Phelps ([id number]) [facility] ([facility]) [address] [place] [address] DOCUMENT REVIEWER - Office Visiton DOCUMENT REVIEWER - Office Visit Provider Impressions Patient is a 26-year-old who comes in for an IUD string check IUD string was found to be appropriate length patient doing well follow-up in 1 year Chief Complaint Patient here today for IUD String check. She has no concerns other than brown discharge last couple days when she wipes. History of Present IllnessLeslie is a 26-year-old who comes in for an IUD string check follow-up. Patient reports a small amount of brown discharge no cramping or bleeding and has no concerns Active Problems Problems 33 weeks gestation of (V22.2) (Z3A.33) 36 weeks gestation of (V22.2) (Z3A.36) Bacterial vaginosis (616.10,041.9) (N76.0,B96.89) Chronic constipation (564.00) (K59.09) Contraception management (V25.9) (Z30.9) Encounter for immunization (V03.89) (Z23) Encounter for screening for cervical cancer (V76.2) (Z12.4) Leukorrhea (623.5) (N89.8) Normal first in third trimester (V22.0) (Z34.03) Obesity (BMI 30-39.9) (278.00) (E66.9) Pre-op testing (V72.84) (Z01.818) Screening for STDs (sexually transmitted diseases) (V74.5) (Z11.3) Urine test negative (V72.41) (Z32.02) Uterine size-date discrepancy in third trimester (649.63) (O26.843) Past Medical History Problems History of (V13.29) (Z87.59) 02/2015 History of IUD (intrauterine device) in place (V45.51) (Z97.5) Naye IUD-placed 07/03/2022 LOT#: [id number] EXp:05/2024 History of Menstruation Onset age 14 years History of NVD (normal vaginal delivery) (650) (O80) 04/09/22 39 WEEKS MALE 8LB 9OZ History of Pap test, as part of routine gynecological examination (V76.2) (Z01.419) 09/28/2021; NIL Surgical History Problems History of Dilation and curettage History of Intrauterine device placement Naye 07/03/2022 good for 3 years 07/03/2025 History of Surgically induced 02/2015 Family History Mother Family history of hypertension (V17.49) (Z82.49) Father No pertinent family history Paternal Grandmother Family history of lymphoma (V16.7) (Z80.7) Social History Problems No illicit drug use Non-smoker (V49.89) (Z78.9) Rarely consumes alcohol (V49.89) (Z78.9) Sexually active Allergies Medication No Known Drug Allergies Recorded By: Jemima Louise; 08/14/2020 4:30:04 AM Current Meds Medication NameInstruction Aspirin 81 MG Oral Tablet Delayed ReleaseTAKE 2 TABLET Daily Multi +DHA 27-0.8-250 MG Oral Capsule Probiotic Complex Acidophilus CAPS Naye 13.5 MG Intrauterine Intrauterine Device Vitals Vital Signs Recorded: 12Jul2022 03:19PM Bzfgyxif781 Pfkzpuvzx05 Height5 ft 10 in Vkouxn450 lb BMI Gyqgyifgpz34.01 kg/m2 BSA Calculated2.24 Physical Exam Constitutional: Healthy-appearing in no distress. Head and Face: No obvious lesions. Pulmonary: Breathing comfortably. Abdomen: Soft nontender. External genitalia revealed no lesions the vagina had a small amount of brown mucousy discharge the string was approximately 2 cm from the os Musculoskeletal: Good mobility. Psychiatric: Appropriately oriented with normal mood and affect. Signatures Electronically signed by : Mahnaz Quintanilla MD; Jul 12 2022 3:23PM EST (Author) Normal [facility] IO HCG, Urine Test on 07-03-2022 HCG ( test) Ql (U) Negative [employer] Work Phone: LMPon 07-03-2022 Last menstrual period start date 02Jul2022 [employer] [facility] Work Phone: DOCUMENT REVIEWER - Procedure Visiton 0 07-03-2022 DOCUMENT REVIEWER - Procedure Visit Diagnoses/Problems Urine test negative (V72.41) (Z32.02) Orders Urine test negative IO HCG, Urine Test; Status:Resulted - Requires Verification,Retrospectiv e Authorization; Done: 03Jul2022 09:08AM Provider Impressions Patient is a 26-year-old who comes in for a Naye placement. A Naye was placed without difficulty we will follow-up in 1 week for string string check Chief Complaint Patient here today for Naye insertion. She has no concerns. LMP:07/02/2022 Office supply Buy and Bill Syla IUD [facility]:39329-948-83 LOT#:[id number] EXP:05/2024 History of Present IllnessPatient is a 26-year-old who comes in for an IUD Naye placement. Patient is currently on her period. Patient has no specific concerns Active Problems Problems 33 weeks gestation of (V22.2) (Z3A.33) 36 weeks gestation of (V22.2) (Z3A.36) Bacterial vaginosis (616.10,041.9) (N76.0,B96.89) Chronic constipation (564.00) (K59.09) Contraception management (V25.9) (Z30.9) Encounter for immunization (V03.89) (Z23) Encounter for screening for cervical cancer (V76.2) (Z12.4) Leukorrhea (623.5) (N89.8) Normal first in third trimester (V22.0) (Z34.03) Obesity (BMI 30-39.9) (278.00) (E66.9) Pre-op testing (V72.84) (Z01.818) Screening for STDs (sexually transmitted diseases) (V74.5) (Z11.3) Uterine size-date discrepancy in third trimester (649.63) (O26.843) Past Medical History Problems History of (V13.29) (Z87.59) 02/2015 History of IUD (intrauterine device) in place (V45.51) (Z97.5) History of Menstruation Onset age 14 years History of NVD (normal vaginal delivery) (650) (O80) 04/09/22 39 WEEKS MALE 8LB 9OZ History of Pap test, as part of routine gynecological examination (V76.2) (Z01.419) 09/28/2021; NIL Surgical History Problems History of Dilation and curettage History of Intrauterine device placement History of Surgically induced 02/2015 Family History Mother Family history of hypertension (V17.49) (Z82.49) Father No pertinent family history Paternal Grandmother Family history of lymphoma (V16.7) (Z80.7) Social History Problems No illicit drug use Non-smoker (V49.89) (Z78.9) Rarely consumes alcohol (V49.89) (Z78.9) Sexually active Allergies Medication No Known Drug Allergies Recorded By: Jemima Louise; 08/14/2020 4:30:04 AM Current Meds Medication NameInstruction Aspirin 81 MG Oral Tablet Delayed ReleaseTAKE 2 TABLET Daily Multi +DHA 27-0.8-250 MG Oral Capsule Probiotic Complex Acidophilus CAPS Naye 13.5 MG Intrauterine Intrauterine Device Vitals Vital Signs Recorded: [id number] 08:52AM Fvsdickl376 Cqurgyocd26 Height5 ft 10 in Qzgnen602 lb 8 oz BMI Gwkwklwydp21.93 kg/m2 BSA Calculated2.24 [id number] Results/Data IO HCG, Urine [id number] 09:08AMRichAlexia maxwellna MEDLINE LOT#:[id number] EXP:06/11/2023 Test NameResultFlagReference IO Urine hCGNegative Procedure Patient was placed in the dorsolithotomy position a bivalve speculum was placed into the patient's vagina the cervix was cleaned with Betadine a single-tooth tenaculum was placed on the anterior lip of the cervix. We then proceeded to insert the Naye IUD without difficulty. The string was trimmed to approximately 3 cm from the cervix. Patient tolerated the procedure well Signatures Electronically signed by : Mahnaz Quintanilla DO; Jul 03 2022 9:42AM EST (Author) Normal [facility] GC + CHLAMYDIA BY AMPLIFIED DETECTIONon 05-21-2022 CHLAMYDIA TRACH.,AMPLIFIED Negative Normal Negative [facility] Comment on above: Result Comment: The APTIMA Combo 2 assay is FDA-approved for Chlamydia trachomatis and Neisseria gonorrhoeae testing on female endocervical and vaginal swabs, ThinPrep liquid pap samples, male urine samples and urethral swabs. Performance characteristics for Chlamydia trachomatis and Neisseria gonorrhoeae testing on specific ilk-BLT-wmgvttud sample types (female urine samples) have been validated by [facility]. This laboratory is certified by CLIA to perform high complexity testing. Samples from all other sites are not validated for this method. Performed By: #### G [facility] #### [facility] [address] [place] [address] N.GONORRHEA,AMPLIFIE D Negative Normal Negative [facility] Comment on above: Result Comment: The APTIMA Combo 2 assay is FDA-approved for Chlamydia trachomatis and Neisseria gonorrhoeae testing on female endocervical and vaginal swabs, ThinPrep liquid pap samples, male urine samples and urethral swabs. Performance characteristics for Chlamydia trachomatis and Neisseria gonorrhoeae testing on specific hil-QKA-ixuxqzfn sample types (female urine samples) have been validated by [facility]. This laboratory is certified by CLIA to perform high complexity testing. Samples from all other sites are not validated for this method. Performed By: #### [facility] #### [facility] [address] [place] [address] Cult, Genitalon 05-20-2022 Bacteria identified Aer cx Nom (Genital specimen) [place] [id number] [employer] Work Phone: Cult, Urineon 05-20-2022 Bacteria identified Cx Nom (U) [place] [address] [employer] Work Phone: GC + CHLAMYDIA BY AMPLIFIED DETECTIONon 05-20-2022 Lab Specimen Source Urine Normal [facility] Comment on above: Performed By: #### [facility] #### [facility] [address] [place] [address] GC + Chlamydia By Amplified Detectionon 05-20-2022 C. trachomatis rRNA MOLINA+probe Ql (Unsp spec) Negative Negative [place] [address] [employer] Work Phone: Comment on above: The APTIMA Combo 2 a ssay is FDA-approved for Chlamydia trachomatis and Neisseria gonorrhoeae testing on female endocervical and vaginal swabs, ThinPrep liquid pap samples, male urine samples and urethral swabs. Performance characteristics for Chlamydia trachomatis and Neisseria gonorrhoeae testing on specific vnh-QDL-xqjflhef sample types (female urine samples) have been validated by [facility]. This laboratory is certified by CLIA to perform high complexity testing. Samples from all other sites are not validated for this method. N. gonorrhoeae rRNA MOLINA+probe Ql (Unsp spec) Negative Negative [place] [id number] [employer] Work Phone: Comment on above: SOURCE: Urine The AP MOLLY Combo 2 assay is FDA-approved for Chlamydia trachomatis and Neisseria gonorrhoeae testing on female endocervical and vaginal swabs, ThinPrep liquid pap samples, male urine samples and urethral swabs. Performance characteristics for Chlamydia trachomatis and Neisseria gonorrhoeae testing on specific oyw-IFR-kjtqrxdn sample types (female urine samples) have been validated by [facility]. This laboratory is certified by CLIA to perform high complexity testing. Samples from all other sites are not validated for this method. GENITAL CULTURE, BACT.on GENITAL CULTURE, BACT. PATIENT: SWETA KING LOCATION: [facility] [place] BILL#: [id number] : [birth year] AGE: SEX: F ORDERED BY: MAHNAZ QUINTANILLA SOURCE: GENITAL COLLECTED: 05/20/22 10:38 ANTIBIOTICS AT [place].: RECEIVED : 05/20/22 19:28 SITE: Vaginal R E S U L T S GENITAL CULTURE, BACT. FINAL 05/23/22 11:36 NO PATHOGENS Culture examined for Group A Streptococcus, Group B Streptococcus, Neisseria gonorrhoeae and Yeast ONLY. NO Neisseria gonorrhoeae ISOLATED. Normal [facility] Comment on above: Performed By: #### T +S #### [facility] [address] [place] [address] DOCUMENT REVIEWER - Visiton 05-20-2022 DOCUMENT REVIEWER - Visit Chief Complaint Pt here for Post Visit (6 WEEK). Patient had a VAGINAL delivery of a MALE infant on 04/09/22 at (39 weeks), weighed 8# 9oz. Patient is currently BOTTLE feeding. Patient would like to discuss control options. Pt IS NOT HAVING ANY post depression. Pt has NOT resumed sexual activity. Pt has no questions or concerns at this time. History of Present IllnessPatient is a 26-year-old who comes in for 6-week visit. Patient reports that she is not breast-feeding. Patient has not been sexually active. Patient has not had a period. Patient reports that previously she had a Naye IUD and desires to have a Naye replaced for contraception. Patient has no concerns today Active Problems 33 weeks gestation of (V22.2) (Z3A.33) 36 weeks gestation of (V22.2) (Z3A.36) Bacterial vaginosis (616.10,041.9) (N76.0,B96.89) Chronic constipation (564.00) (K59.09) Encounter for immunization (V03.89) (Z23) Encounter for screening for cervical cancer (V76.2) (Z12.4) Normal first in third trimester (V22.0) (Z34.03) Obesity (BMI 30-39.9) (278.00) (E66.9) Pre-op testing (V72.84) (Z01.818) Screening for STDs (sexually transmitted diseases) (V74.5) (Z11.3) Uterine size-date discrepancy in third trimester (649.63) (O26.843) Past Medical History History of (V13.29) (Z87.59) 02/2015 History of Menstruation Onset age 14 years History of NVD (normal vaginal delivery) (650) (O80) History of Pap test, as part of routine gynecological examination (V76.2) (Z01.419) 09/28/2021; NIL Surgical History History of Dilation and curettage History of Surgically induced 02/2015 Family History Family history of hypertension (V17.49) (Z82.49) No pertinent family history Family history of lymphoma (V16.7) (Z80.7) Social History No illicit drug use Non-smoker (V49.89) (Z78.9) Rarely consumes alcohol (V49.89) (Z78.9) Sexually active Allergies No Known Drug Allergies Recorded By: Jemima Louise; 08/14/2020 4:30:04 AM Current Meds Aspirin 81 MG Oral Tablet Delayed Release; TAKE 2 TABLET Daily; Therapy: [id number] to (Last Rx:[id number]) Requested for: [id number] Ordered Rx By: Norman Couch; Dispense: 0 Days ; #:60 Tablet; Refill: 11;For: 12 weeks gestation of ; LIBAN = N; Verified Transmission to [id number]; Last Updated By: Demian Christian; 09/28/2021 4:36:45 PM Multi +DHA 27-0.8-250 MG Oral Capsule; Therapy: (Recorded:[id number]) to Recorded Dispense: 0 Days ; #: Sufficient Capsule; Refill: 0;For: Health Maintenance; LIBAN = N; Record; Last Updated By: Liana Stovall; 08/31/2021 9:02:41 AM Probiotic Complex Acidophilus CAPS; Therapy: (Recorded:[id number]) to Recorded Dispense: 0 Days ; #: Sufficient Each; Refill: 0;For: Health Maintenance; LIBAN = N; Record; Last Updated By: Liana Stovall; 08/31/2021 9:02:41 AM Vitals Vital Signs Recorded: 20May2022 10:15AM Yzokryoa795 Nrpxgrecq59 Height5 ft 10 in Vmlwdp510 lb 7.94 oz BMI Eiszroxinu83.36 kg/m2 BSA Calculated2.23 Physical Exam Constitutional: Healthy-appearing in no distress. Head and Face: No obvious lesions. Pulmonary: Breathing comfortably. Abdomen: Soft nontender. Genitourinary: Sexual maturation: External genitalia revealed no lesions the vagina was well estrogenized the posterior fourchette still has some sutures dissolving. Psychiatric: Appropriately oriented with normal mood and affect. Provider Impressions Patient is here for 6-week visit. Patient is doing well. We will follow-up once the Naye comes in. Culture sent today Signatures Electronically signed by : Mahnaz Quintanilla DO; May 20 2022 10:24AM EST (Author) Normal [facility] URINE CULTURE,BACTERIALon URINE CULTURE,BACTERIAL PATIENT: SWETA KING [place] [facility] [place] [id number] : [birth year] AGE: SEX: F ORDERED BY: MAHNAZ QUINTANILLA SOURCE: URINE COLLECTED: 05/20/22 10:39 ANTIBIOTICS AT [place].: RECEIVED : 05/20/22 19:06 SITE: Clean Catch/Voided R E S U L T S URINE CULTURE,BACTERIAL FINAL 05/21/22 11:20 NO SIGNIFICANT GROWTH. Normal [facility] Comment on above: Performed By: #### [facility] #### [facility] [address] [place] [address] CBCon 04-11-2022 Erythrocyte distribution width (RBC) [Ratio] 13.9 % Normal 11.5 - 14.5 [facility] Comment on above: Performed By: #### C BC ####[address] [address] Hematocrit (Bld) [Volume fraction] 36.6 % Normal 36.0 - 46.0 [facility] Comment on above: Performed By: #### C BC ####[address] [address] Hemoglobin (Bld) [Mass/Vol] 11.9 g/dL Low 12.0 - 16.0 [facility] Comment on above: Performed By: #### C BC ####[address] [address] MCHC (RBC) [Mass/Vol] 32.5 g/dL Normal 32.0 - 36.0 [facility] Comment on above: Performed By: #### C BC ####[address] [address] MCV (RBC) [Entitic vol] 82 fL Normal 80 - 100 [facility] Comment on above: Performed By: #### C BC ####[address] [address] Platelets (Bld) [#/Vol] 172 10*3/uL Normal 150 - 450 [facility] Comment on above: Performed By: #### C BC ####[address] [address] RBC 4.44 x10E12/L Normal 4.00 - 5.20 [facility] Comment on above: Performed By: #### C BC ####[address] [address] WBC (Bld) [#/Vol] 11.2 10*3/uL Normal 4.4 - 11.3 [facility] Comment on above: Performed By: #### C BC ####[address] [address] Discharge Girxyfa4yt 022 Discharge Profile2 Discharge Orders: Anticipated Discharge Date: Anticipated Discharge [id number]-Kue-0270 Problem List: Admitting Dx: 39 weeks gestation of : Catalog Name: 39 weeks gestation of Additional Dx: Single live : Onset Date: 10-Apr-2022, Catalog Name: Single live DNAR: Code Status at Discharge: Full Code : Call 911: Call 911 or go to the nearest emergency room RIGHT AWAY if you have:. Chest pain or pressure; heart racing. Shortness of breath or difficulty breathing. Seizures; change in alertness or confusion. Thoughts of hurting yourself or someone else. Call Provider: Call your OB Provider if you have: (If you can't reach your healthcare provider, call 911 or go to an emergency room). Heavy bleeding. Soaking a large pad every hour or passing large clots. Incision that is not healing, is red or more painful, or has pus (if you have an incision). Red or swollen leg that is painful or warm to touch. Temperature of 100.4 degrees F or higher; bad-smelling vaginal blood or discharge. Headache that does not get better, even after taking medicine; bad headache with vision changes; pain in the upper right area of your belly. Signs of Depression. Examples include: 1. Persistent sadness 2. Frequent crying 3. Sleep problems 4. Excessive worrying 5. Feeling unable to cope. Red or swollen breast that is painful or warm to touch. Pain, burning, or difficulty with emptying your bladder. Severe constipation (more than 5 days). Trust your instincts. Always get medical care if you are not feeling well or have questions or concerns.. Activity: Return to normal activity as tolerated. Patient Instructions: Pelvic Rest: DO NOT place anything in vagina until cleared by OB Provider. May NOT return to school/work until cleared by OB Provider. Blood Pressure: Any Blood Pressure Systolic (upper number) 160 or higher OR Diastolic (bottom number) 110 or higher, call your doctor or order analyst immediately. Blood Pressure Systolic (upper number) 150 - 159 OR Diastolic (bottom number) 100 - 109, repeat in one hour. If repeat Blood Pressure Systolic 150 - 159 OR Diastolic 100 - 109, call your doctor or order analyst to discuss blood pressure management.. Diet: Regular. Follow-Up - OB Provider: Physician/Dept/ServiceOB Provider Dr. Quintanilla Call to Schedule in6 weeks LocationOutpatient office Electronic Signatures: Mahnaz Quintanilla) (Signed 11-Apr-2022 07:18) Authored: Discharge Orders, , Gold Form - Private Investigator Summary Last Updated: 11-Apr-2022 07:18 by Mahnaz Quintanilla) [facility] Order Reconciliationon 04-11 Order Reconciliation Page 1 Discharge Reconciliation Document Reconciliation Type: Discharge requested on behalf of Mahnaz Quintanilla (Physician) done by Mahnaz Quintanilla) Discharge - Reconciliation: 11-Apr-2022 07:16 by: Mahnaz Quintanilla) Home Medications EnteredHOME MEDICATIONS AT DISCHARGE DateReconciliation Comment/ Additional Information 1 oral capsule 1 tab(s) orally once a day 09-Apr-2022 06:54 1 oral capsule 1 tab(s) orally once a day 09-Apr-2022 06:54 1 oral capsule is continued as 1 oral capsule Current OrdersDateHOME MEDICATIONS AT DISCHARGE DateReconciliation Comment/ Additional Information Acetaminophen Tablet (TYLENOL)DOSE = 975 mg Oral Every 6 HoursClinician Notes: Give with Ibuprofen. 09-Apr-2022 22:09 acetaminophen 325 mg oral tablet 3 tab(s) orally every 6 hours 11-Apr-2022 07:15 Acetaminophen is continued as acetaminophen 325 mg oral tablet Benzocaine 20% - Menthol 0.5% Topical [place] (DERMOPLAST)DOSE = 1 application(s) Topical 4 Times a Day, PRN DiscomfortApply to Perianal Area 09-Apr-2022 22:09 Benzocaine 20% - Menthol 0.5% Topical is not required Bisacodyl Rectal Suppository (DULCOLAX)DOSE = 10 mg Rectal Daily, PRN Severe constipation 09-Apr-2022 22:09 Bisacodyl Rectal is not required diphenhydrAMINE Capsule (BENADRYL)DOSE = 25 mg Oral Every 6 Hours, PRN Itching 09-Apr-2022 22:09 diphenhydrAMINE is not required Enoxaparin SubCutaneous (LOVENOX)DOSE = 40 mg SubCutaneous Every 24 HoursClinician Notes: Wait 4 hours after neuraxial catheter removal AND 12 hours after placement of neuraxial catheter. BMI less than 35 with a score greater than 5 OR BMI 35 to 39. 09-Apr-2022 22:09 Enoxaparin SubCutaneous is not required Ibuprofen Tablet (ADVIL, MOTRIN)DOSE = 600 mg Oral Every 6 HoursClinician Notes: Give with Acetaminophen. 09-Apr-2022 22:09 ibuprofen 800 mg oral tablet 1 tab(s) orally every 8 hours 11-Apr-2022 07:15 Prescription is created for ibuprofen 800 mg oral tablet Lanolin Topical Ointment (LANSINOH)DOSE = 1 application(s) Topical Every 24 Hours, PRN Dry SkinApply to NippleClinician Notes: After and PRN 09-Apr-2022 22:09 Lanolin Topical is not required Magnesium Hydroxide -Al Hydrox -Simethicone Oral Liquid (MAALOX)DOSE = 30 mL Oral Every 4 Hours, PRN Indigestion 09-Apr-2022 22:09 Magnesium Hydroxide -Al Hydrox -Simethicone Oral Liquid is not required Measles -Mumps -Rubella (Live) MMR Vaccine DOSE = 0.5 mL SubCutaneous Once, PRN if patient screen is non- immune or equivocalClinician Notes: administer if patient screen is non- immune or equivocal 09-Apr-2022 22:09 Measles -Mumps -Rubella (Live) MMR Vaccine is not required Metoclopramide Injectable (REGLAN)DOSE = 10 mg IntraVenous Push Every 6 Hours, PRN persistent PONV if first line ineffective 09-Apr-2022 22:09 Metoclopramide Injectable is not required Oxytocin 30 units/ NaCL 0.9% 500 mL Infusion with Bolus from Bag IntraVenous (PITOCIN)INITIAL Bolus = 600 milliunits/min infused over 30 minutesDose Rate: 60 milliunits/minAdmin Rate = 60 mL/hrStop After 1 DosesClinician Notes: C 09-Apr-2022 22:09 Oxytocin 30 units/ NaCL 0.9% 500 mL Infusion with Bolus from Bag is not required Oxytocin Injectable (PITOCIN)DOSE = 10 unit(s) IntraMuscular OnceClinician Notes: Conditional order. Consult Provider prior to administration. 09-Apr-2022 22:09 Oxytocin Injectable is not required Polyethylene Glycol Powder for Reconstitution (MIRALAX)DOSE = 17 gram(s) Oral 2 Times a Day, PRN Constipation 09-Apr-2022 22:09 Polyethylene Glycol is not required Sodium Chloride 0.9% Injectable Flush via Peripheral LineVolume = 10 mL IntraVenous Flush Every 12 Hours and as Needed 09-Apr-2022 22:09 Sodium Chloride 0.9% Injectable Flush is not required Witch Donna Topical Pad (AGUSTINA LATIF)DOSE = 1 application(s) Topical 5 Times a Day, PRN to Perineum - DiscomfortApply to PerineumClinician Notes: May self-administer after voiding 09-Apr-2022 22:09 Witch Donna Topical is not required All Active Home Medications at time of Discharge Reconciliation: 11-Apr-2022 07:16 acetaminophen 325 mg oral tablet 3 tab(s) orally every 6 hours ibuprofen 800 mg oral tablet 1 tab(s) orally every 8 hours 1 oral capsule 1 tab(s) orally once a day Normal [facility] CBCon 04-10-2022 Erythrocyte distribution width (RBC) [Ratio] 13.7 % Normal 11.5 - 14.5 [facility] Comment on above: Performed By: #### C BC ####[address] [address] Hematocrit (Bld) [Volume fraction] 35.6 % Low 36.0 - 46.0 [facility] Comment on above: Performed By: #### C BC ####[address] [address] Hemoglobin (Bld) [Mass/Vol] 11.8 g/dL Low 12.0 - 16.0 [facility] Comment on above: Performed By: #### C BC ####[address] [address] MCHC (RBC) [Mass/Vol] 33.1 g/dL Normal 32.0 - 36.0 [facility] Comment on above: Performed By: #### C BC ####[address] [address] MCV (RBC) [Entitic vol] 82 fL Normal 80 - 100 [facility] Comment on above: Performed By: #### C BC ####[address] [address] Platelets (Bld) [#/Vol] 171 10*3/uL Normal 150 - 450 [facility] Comment on above: Performed By: #### C BC ####[address] [address] RBC 4.32 x10E12/L Normal 4.00 - 5.20 [facility] Comment on above: Performed By: #### C BC ####[address] [address] WBC (Bld) [#/Vol] 16.5 10*3/uL High 4.4 - 11.3 [facility] Comment on above: Performed By: #### C ####[address] [address] [place] [address] Daily Progress Note - OB-Pos t-partumon 04-10-2022 Daily Progress Note - YY-Fdef-hvqnnp Current Stage: Stage: Post- Subjective Data: Post : Ambulate: Yes Flatus: Not Applicable Tolerate Diet: Yes Lochia: Light : Patient post day #1. Patient reports that she nibbled on some light food yesterday. Denies nausea vomiting. Has voided without difficulty. Reports pain well controlled with Motrin and Tylenol. Reports minimal bleeding. Patient is bottlefeeding and has no complaints Objective Information: Objective Information: T PRBPMAPSpO2 Value36.87474905/790574% Date/Time04/10 4: 7: 4: 7: 7: 4:07 Range(36.6C - 37.3C ) (66 - 134 ) (14 - 18 ) (101 - 150 )/ (48 - 90 ) (68 - 109 ) (81% - 100% ) Highest temp of 37.3 C was recorded at 04/09 21:59 Pain reported at 04/10 4:06: 0 = None ---- Intake and Output ----- Mn/Dy/Year TimeIntakeOutputNet Apr 10, 2022 6:00 [id number] Apr 09, 2022 10:00 [id number] The Intake and Output Totals for the last 24 hours are: IntakeOutputNet [id number] Physical Exam: Constitutional: Awake sitting in bed comfortably Obstetric: Uterine fundus below the umbilicus firm nontender Head/Neck: Good range of motion Respiratory/Thorax: Clear to auscultation but poor effort Cardiovascular: Regular rate and rhythm Genitourinary: Scant blood Extremities: Good mobility Psychological: Appropriately oriented with normal mood and affect Recent Lab Results: Results: CBC: 04/10/2022 05:47 \ Hgb / \ 11.8 L / WBC Plt 16.5 H 171 / Hct \ / 35.6 L \ RBC: 4.32 MCV: 82 Assessment and Plan: Assessment: Patient's status post vaginal delivery appears to be doing well encouraged ambulation H&H reasonable anticipate discharge home tomorrow Electronic Signatures: Mahnaz Quintanilla) (Signed 10-Apr-2022 08:47) Authored: Current Stage, Subjective Data, Objective Data, Assessment and Plan, Note Completion Last Updated: 10-Apr-2022 08:47 by Mahnaz Quintanilla) [facility] Delivery Recordon 04-10-2022 Delivery Record Delivery Information: [place] A Delivery Information: Baby A Delivery: Rupture of Membranes date/jszo86-Bht-0030 16:57 Amniotic Fluid Colorclear Delivery Typevaginal delivery Delivery Locationlabor and delivery Delivery Date/Ilac39-Rkx-8043 21:47 Length of Time of ROM (rounded down to nearest hour)4 Sexmale Identification Band [id number] Electronic Transponder [id number] ID Bands Verified byRudy Berumen RN 4th ID band toFather of baby Weight (kg)4.025 kilogram(s) Length (cm)52 centimeter(s) Head Circumference (cm)35 centimeter(s) Chest Circumference (cm)35.5 1 Min: Heart Ratemore than 100 beats/min Respiratory Rategood, crying Muscle Tonewell flexed Reflex Irritabilitycough or sneeze Colorbody pink, extremities blue 1 Minute Score, Baby A9 Apgars assessed byBrittney Brown RN 5 Min: Heart Ratemore than 100 beats/min Respiratory Rategood, crying Muscle Tonewell flexed Reflex Irritabilitycough or sneeze Colorbody pink, extremities blue 5 Minute Score, Baby A9 Apgars assessed byBrittney Brown RN Electronic Signatures: Bettie Berumen) (Signed 09-Apr-2022 23:31) Authored: [place] Delivery Information Last Updated: 09-Apr-2022 23:31 by Bettie Berumen) [facility] GENITAL CULTURE, BACT.on GENITAL CULTURE, BACT. PATIENT: SWETA KING LOCATION: [facility]#: [id number] : 89 AGE: SEX: F ORDERED BY: MAHNAZ QUINTANILLA SOURCE: PLACENTA COLLECTED: 04/09/22 22:16 ANTIBIOTICS AT [place].: RECEIVED : 04/10/22 12:19 SITE: R E S U L T S GRAM STAIN FINAL 04/11/22 12:13 1+ GRANULOCYTES. NO ORGANISMS SEEN. GENITAL CULTURE, BACT. FINAL 04/13/22 15:45 2+ MIXED AEROBIC BACTERIA CONSISTENT WITH GENITAL MORGAN. Normal [facility] Comment on above: Performed By: #### G ENLO #### [facility] [address] [place] [address] ANTIBODY IDENT.on 04-09-2022 ANTIBODY IDENT. ANTI-P1 Normal [facility] Comment on above: Result Comment: Anti -P1 Cold Antibody Performed By: #### A BID #### [facility] [address] [place] [address] Admission Risk Screen - OBon 04-09-2022 Admission Risk Screen - OB Allergies: Allergies: No Known Allergies: Patient Verification: New W ID Band Applied in my Departmentyes Patient Identity Verified Bypatient ID Band FULL Name, include Middle, spelling matches patient's ID used for verificationyes ID Band Matches Patient ID used for Verficationyes ID Band MRN Matches EMR MRNyes Visitor Restriction: Coronavirus Visitor Restriction: Reasonable restrictions to in-person visitors will be observed due to current coronavirus pandemic. Travel History: COVID-19 Screening Completedno exposure or symptoms Travel or Exposure Past 30 DaysNO travel to International locations in the past 30 days Advance Directive: Advance Directive/DNRno Advance Directive Information Givenpatient/family declined Roberts Fall Screen: History of falling (immediate or previous)no (0) Secondary Diagnosisno (0) Intravenous Therapy/ Heparin/Saline Lockyes (20) Gait/Transferringnormal/b edrest/wheelchair (0) Ambulatory Aidsnone/bedrest/nurse assist (0) Mental Statusoriented to own ability (0) Score: Low risk (<25). Moderate risk (25-44). High risk (>44).20 Roberts InterventionsLOW INTERVENTIONS: *patient oriented to surroundings and call system, * patient/family falls education completed and documented, *patients fall status communicated during bedside handoff, *whiteboard updated, *mode of toileting discussed with patient, *bed in low position with brakes locked, *call light in reach, * non-skid footwear Functional screen: Functional Screen: In the recent/past 2-4 weeks, patient or family have noticedno issues that require a rehabilitation consult at this time Learning Assessment (Patient): Patient is Able to be Assessed for Learningyes Factors Influencing Readiness to Learnanxiety; fatigue; pain Factors that Impact Ability to Learnnone Devices/Methods Used to Communicatenone Learning Preferencesskill demonstration; verbal instruction; written material Cultural Considerationsnone Developmental Considerationsnone Holiness Considerationsnone Learning Assessment (Other Learner): Other learner availableno Nutrition Risk Screen: Nutrition Risk Screenno indicators present Nutrition Consult needed this visitno Can Patient Participate in Room Serviceyes Pain Screen: Pain Control Method: Laborepidural; repositioning; breathing techniques Pain Control Method: Postpartummedication; rest; relaxation Pain Scalenumerical 0-10 Pain Scale Educationteaching provided Acceptable Pain Level5 = Moderate Presence of Painno Expression of Pain (nonverbal)none Chronic Painno Skin - Bay Scale: Bay Scale (daily): Bay: Sensory Perception (response to environment)(4) no impairment Bay: Moisture (degree skin exposed to moisture)(4) rarely moist Bay: Activity (ability to walk)(4) walks frequently Bay: Mobility (amount/control of body movement)(4) no limitation Bay: Nutrition (quality of food intake)(3) adequate Bay: Friction and Shear(3) no apparent problem Bay: Score22 Pressure Injury Present on Admissionno Spiritual Screen: Are there any cultural, spiritual, rastafari practices/values/needs that are important for us to knowno Depression Screen: During the past month, have you often been bothered by feeling down, depressed or hopelessno During the past month, have you often had little interest or pleasure in doing thingsno Have you had any thoughts of harming anyone elseno [place] Suicide: Risk Screen Not Applicable/Able to Answerable to be screened In the Past Month: Have you wished you were or could go to sleep and not wake upno In the Past Month: Have you had any actual thoughts of killing yourselfno Lifetime: Have you ever done, started to do, or prepared to do anything to end your lifeno [place] Suicide Risknegative Family Violence Screen: Are you or have you been threatened or abused physically, emotionally, or sexually by anyoneno Do you feel UNSAFE going back to the place where you are livingno Clinical assessment: Are there any apparent signs of injuries/behaviors that could be related to abuse/neglectno Social Service Consult for abuse/neglect needed this visitno Vaccinations: Vaccination - Influenza Vaccination Screen: Is it flu season (between and August 09)Yes Screening for identified contraindications to influenza vaccination patient/caregiver refusal Vaccination - Pneumonia Vaccination Screen: Patient has received a previous pneumonia vaccine:yes Vaccination - TDap Vaccination Screen: Have you received a TDap vaccine this pregnancyyes (no further action required) Significant Indicatiors: Significant Indicators: Complete Note Name:Admission Risk Screen - OB Electronic Signatures: Flaquito Conway) (Signed 09-Apr-2022 06:46) Authored: Admission Risk Screens, Roberts Fall Screen, Pressure Injury, Vaccinations (more content not included)... Normal [facility] CBCon 04-09-2022 Erythrocyte distribution width (RBC) [Ratio] 13.8 % Normal 11.5 - 14.5 [facility] Comment on above: Performed By: #### C BC #### [address] [address] Hematocrit (Bld) [Volume fraction] 39.9 % Normal 36.0 - 46.0 [facility] Comment on above: Performed By: #### C BC #### [address] [address] Hemoglobin (Bld) [Mass/Vol] 13.3 g/dL Normal 12.0 - 16.0 [facility] Comment on above: Performed By: #### C BC #### [address] [address] MCHC (RBC) [Mass/Vol] 33.3 g/dL Normal 32.0 - 36.0 [facility] Comment on above: Performed By: #### C BC #### [address] [address] MCV (RBC) [Entitic vol] 81 fL Normal 80 - 100 [facility] Comment on above: Performed By: #### C BC #### [address] [address] Platelets (Bld) [#/Vol] 206 10*3/uL Normal 150 - 450 [facility] Comment on above: Performed By: #### C BC #### [address] [address] RBC 4.93 x10E12/L Normal 4.00 - 5.20 [facility] Comment on above: Performed By: #### C BC #### [address] [address] WBC (Bld) [#/Vol] 10.5 10*3/uL Normal 4.4 - 11.3 [facility] Comment on above: Performed By: #### C BC #### [address] [address] Daily Progress Note - OB-Int rapartumon 04-09-2022 Daily Progress Note - OB-Intrapartum Current Stage: Stage: Intrapartum Subjective Data: Intrapartum: Intrapartum Progress Notes Patient breathing 2 through contractions. Patient declining pain medicine at present. Patient reports that she feels very uncomfortable but the pain is still tolerable. Objective Information: Objective Information: T PRBPMAPSpO2 [id number]% Date/Time04/09 15: 15: 15: 15: 15: 15:58 Range(36.7C - 36.7C ) (72 - 98 ) (14 - 18 ) (128 - 138 )/ (70 - 82 ) (93 - 102 ) (98% - 98% ) Pain reported at 04/09 15:58: 2 = Mild Physical Exam: Constitutional: Sitting in bed breathing through contractions Obstetric: Uterus and fundus nontender Respiratory/Thorax: Breathing comfortably Genitourinary: Cervix 5 cm 90% and 0 station artificial rupture clear fluid Psychological: Appropriately oriented with normal mood and affect Recent Lab Results: Results: CBC: 04/09/2022 06:37 \ Hgb / \ 13.3 / WBC Plt 10.5 206 / Hct \ / 39.9 \ RBC: 4.93 MCV: 81 Testing: NST Interpretation - Baby A: Baseline [id number] Variabilitymoderate (amplitude range 6 to 25 bpm) Assessment and Plan: Assessment: Patient at 39+ weeks gestation for elective induction. Patient transitioning into active labor. We will continue oxytocin. Encourage patient to have an epidural. tracing reassuring Electronic Signatures: Mahnaz Quintanilla) (Signed 09-Apr-2022 17:08) Authored: Current Stage, Subjective Data, Objective Data, Testing, Assessment and Plan, Note Completion Last Updated: 09-Apr-2022 17:08 by Mahnaz Quintanilla) [facility] Discharge Planning [id number] 1 06-09-2021 Discharge Planning Note2 Discharge Planning: Anticipated Discharge [id number] Discharge Planning Date and Time: 04/09/2022 Discharge Planning initiated on admission and formally reevaluated at this time. Patient independent with ambulation and ADL's prior to admission. Additional home going needs anticipated at this time: none Handouts given to and reviewed with patient/caregiver per unit folder standards. Patient verbalizes understanding and denies any other discharge needs. Plan to continue to assess home going/discharge needs. Coordinate with interdisciplinary team as needed. Signature: Flaquito Conway RN Assessment: Discharge Planning Assessment [id number] Lives Withspouse(1) [place] Resource/Environmental Concernsnon(1) [place]ticipated [place]) Services Anticipated at Transitionnon(1) Nursing Checklist: Lines/Cathetersremoved/ap propriate for next level of care Discharge Med Rec Reconciled with Rakel Patient has Prescriptionsyes Transportation for Discharge Confirmedyes Follow up Reviewedyes Discharge Instructions Reviewed WithPatient, Significant Other Discharge Instructions Outcomeverbalize recall/understanding Discharge Documentation: Discharge/Transfer Date/[id number] 14:05 Discharged Accompanied Byspouse Transportation Methodprivate car Code StatusCode Status order at time of discharge: Full Code Discharge Order Writtenyes [place] DNR Form Sent with Patient and/or Familyno Final Disposition.Home Electronic Signatures: Flaquito Conway) (Signed 09-Apr-2022 06:52) Authored: Discharge Planning, Assessment Priya Garcia) (Signed 11-Apr-2022 14:23) Authored: Discharge Planning, Nursing Checklist, Discharge Documentation Last Updated: 11-Apr-2022 14:23 by Priya Garcia (RN) References: 1. Data Referenced From Patient Profile - OB v3 09-Apr-2022 06:47 [facility] Patient Profile - OB v3on Patient Profile - OB v3 Profile: Initial Info: How to be AddressedLeslie Spoken Language PreferredEnglish Source of Informationpatient Reason for admission this visitexpected delivery Wants Family/Rep Notified of Admissionn/a; family present Notify PCPdo not notify PCP Informed of Patient Visiting Rightsyes Limitations on Visitors/Phone Callsnone [place] Patient Belongingsnone Home Meds have been Reviewed and Verified with Patient/Familyyes Medications Brought to Hospitalno Info: Gravida2 Term Deliveries0 Deliveries0 Abortions1 Living Children0 Patient stated [id number] Calculation of EGA based on patient stated EDD39.4 Records availableyes Trimester Care Initiatedfirst Care Providercarmona Current Risksnone Testsultrasound Previous live (any gestational age)no Planno Baby's Post Discharge Care Provider (Provider Name, Address and Phone Number) [facility] Cord Blood/Tissue Banking Plannednone Feedinginfant formula Benefits of Breast Milk DiscussionThe benefits of exclusive breast milk feeding and the risk of adding formula have been discussed with patient / mother. Discussion Date / [id number] 06:49 General Health: Current Weight in kg118.5 kilogram(s) Current Weight in mdh644.2 pound(s) Weight Methodactual (measured) Scale Typebed Pre Weight (lb)245 pound(s) Total Weight Gain (lb)16 pound(s) Height in feet5 feet Height in nqejta76 inch(es) Height in cm177.8 centimeter(s) Height Methodstated BMI (kg/m2)37.484 square meter Patient or Family Member Reaction to Anesthesianever had anesthesia; no previous family member reaction Blood Avoidance/Restrictionsnon e Previous Transfusion Reactionno Rsp Based Care: How would you like to participate in your careBottle Fed Infant Support What is the number one concern for you during this hospitalizationPain What is the most important thing we can do to support you during this hospitalizationUpdate in POC Is there anything we need to know to best care for youFormula feeeding Substance: Smoking Statusnever smoker Alcohol Usedenies Drug Usedenies Drug 2 Usedenies Health Mgmt: Symptoms/Conditions Managed at Homenone Barriers to Managing Healthnone Relationship/Environ: Primary Source of Support/Comfortspouse Lives Withspouse Resource/Environmental Concernsnone [facility] Anticipated at Transitionnone Additional Information: Information Review: Allergies and Significant Events have been Reviewed and Verified with Patient/Familyyes Allergy, Intolerance, Adverse Event: Allergies: No Known Allergies: Active Electronic Signatures: Flaquito Conway (RN) (Signed 09-Apr-2022 06:51) Authored: Initial Info, Info, General Health, Substance, Health Mgmt, Relationship/Environ, Additional Information Priya Garcia) (Signed 11-Apr-2022 05:00) Authored: [facility] Based Care Last Updated: 11-Apr-2022 05:00 by Priya Garcia (MEGA) [facility] REQUEST-LEUKOREDUCED RED JUAN LSon 04-09-2022 REQUEST-LEUKOREDUCED RED CELLS ORDER RECD [facility] Comment on above: Performed By: #### O HOB GRINDER ####[address] [address] SYPHILIS SCREENING WITH REFL EXon 04-09-2022 SYPHILIS TOTAL AB Non-Reactive Normal NONREACTIVE [facility] Comment on above: Result Comment: No s ignificant level of Treponema pallidum antibody detected. Repeat testing in 2 to 4 weeks may be considered if early infection or incubating syphilis infection is suspected. Performed By: #### S YPHR #### [facility] [address] [place] [address] Lab Specimen Source [facility] Comment on above: Performed By: #### S YPHR #### [facility] [address] [place] [address] TYPE + SCREENon 04-09-2022 ABO TYPE O [facility] Comment on above: Performed By: #### T +S #### [address] [address] RH TYPE Positive Normal [facility] Comment on above: Performed By: #### T +S #### [id number] [place] [address] CORONAVIRUS 2019, SCREEN ASY MPTOMATICon 04-07-2022 SARS-CoV-2 (COVID-19) RNA MOLINA+probe Ql (Unsp spec) Not detected Normal Not Detected [facility] Comment on above: Result Comment: . This assay is designed to detect the ORF1a/b and E genes of SARS-CoV-2 via nucleic acid amplification. A Not Detected result does not preclude 2019-nCoV infection since the adequacy of sample collection and/or low viral burden may result in presence of viral nucleic acids below the clinical sensitivity of this test method. Fact sheet for providers: https://www.fda.gov/media/107132/download Fact sheet for patients: https://www.fda.gov/media/035234/download This test has received FDA Emergency Use Authorization (EUA) and has been verified for use by [facility] ([facility]). This test is only authorized for the duration of time that circumstances exist to justify the authorization of the emergency use of in vitro diagnostic tests for the detection of SARS-CoV-2 virus and/or diagnosis of COVID-19 infection under section 564(b)(1) of the Act, 21 U.S.C. 360bbb-3(b)(1), unless the authorization is terminated or revoked sooner. [facility] is certified under CLIA-88 as qualified to perform high complexity testing. Testing is performed in the [facility] laboratories located at [address] [place] [address]. Performed By: #### C OVSC #### [place] [address] Covid 19 Resultson SARS-CoV-2 (COVID-19) RNA MOLINA+probe Ql (Unsp spec) NEGATIVE COVID-19 Test Coronaviruses are common world-wide and are the cause of many common colds. SARS-COV2 is a new coronavirus that began circulating worldwide in 2019 so we are calling it COVID-19. It has been estimated that four out of five patients with COVID-19 will recover at home without the need for medical attention. Symptoms of COVID-19 may include cough, fever, shortness of breath, loss of taste or smell and other flu-like symptoms including chills, sore muscles, sore throat, and headache. Severe illness is more common in older people and people with other health problems such as high blood pressure, obesity, and immune system problems. If the test is positive, you have COVID-19. You will be contacted by the ordering physicians office and instructed to remain on home isolation, in accordance with CDC guidelines. You may also be contacted by the [facility] to see if any of your close contacts may have been exposed to the virus and need to quarantine. If the test is negative, you likely do not have COVID-19 at this time, but you still may have a different illness that can spread to other people (like Influenza, or the Flu) and could still be at risk for getting COVID-19. We recommend that you stay away from other people to limit the spread of illness until your symptoms are improving and you are fever-free for 24 hours without the use of fever lowering medications such as acetaminophen or ibuprofen. No test is 100% accurate so if you are still concerned you may have COVID-19, talk to your doctor about the need to continue to stay away from others. Medicines Unless your provider told you not to use the following: Acetaminophen (Tylenol and others) is generally safe. Anti-inflammatory medications, such as Ibuprofen (Advil or Motrin) or Naproxen (Aleve) can also be used. Zdxc-luf-tofrnus cough and cold medicines can be used according to the instructions on the package. Some ueor-qvh-cyliyls medicines also contain acetaminophen. Make sure you are not taking more than your recommended dose. For those not hospitalized, there is no specific treatment available for this illness. Antibiotics do not treat Coronaviruses. Follow-Up Follow up with your doctor by scheduling a virtual visit or consider follow-up at one of our urgent care fever clinics. If you are having difficulty breathing, or are very weak and having difficulty standing, this is a medical emergency. Call 911 or have someone take you to the nearest emergency room immediately. If possible, wear a facemask. Additional guidance from the CDC for patients who tested POSITIVE for COVID-19 How to isolate: Isolate yourself in a specific room at home and limit your contact with others. Use a separate bathroom from other members of the household, when possible. Leave home only to get essential medical care. Do not go to work, school or public areas. Avoid using public transportation, ride-sharing, or taxis. Restrict contact with pets and other animals. If you must care for your pet or be around animals while you are sick, wash your hands before and after your interaction and wear a facemask. Make sure that shared spaces in the home have good airflow, such as by an air conditioner or an opened window, weather permitting. Personal Hygiene Procedures: Wear a face mask when in the same room as other people or pets. If a face mask interferes with your breathing, others should wear a mask when sharing space with you. Frequent hand-washing: wash your hands with soap and water for at least 20 seconds. If soap and water are not available, use alcohol-based hand shredding machine operator. Avoid touching your eyes, nose, and mouth with unwashed hands. Household Hygiene Procedures: Avoid sharing personal household items such as dishes, glassware, cups, eating utensils, towels or bedding with other people or pets in your home. After use, these items should be washed with soap and hot water. Disinfect all high-touch surfaces every day with antibacterial cleaning solutions such as Lysol wipes, bleach, cleansers, etc. High-touch surfaces include tabletops, doorknobs, bathroom fixtures, toilets, phones, keyboards, tablets and bedside tables. Immediately clean any surfaces that may have blood, poop or body fluids on them, using antibacterial cleaning solutions such as Lysol wipes, bleach, cleansers, etc. If clothing or bedding come into contact with blood, poop or body fluids, they should be washed immediately. Follow the directions on the laundry detergent and clothing labels but hot water is recommended when possible. Stopping home isolation precautions: If possible, consult your doctor before stopping home isolation precautions. According to the CDC, you can discontinue home isolation precautions when you have met both of these criteria: Your fever and respiratory symptoms have been gone for 24 aleksandra (more content not included)... Normal [facility] CORONAVIRUS 2019, SCREEN ASY MPTOMATICon 04-06-2022 Lab Specimen Source Nasal, Nasopharyngeal Normal [facility] Comment on above: Performed By: #### C OVSC #### [facility] [address] [place] [address] Coronavirus 2019 RNA by PCR, Screening Asymptomticon 04-06-2022 Coronavirus 2019 RNA by PCR, Screening Asymptomtic Not detected Normal See Below [facility] Work Phone: Comment on above: SOURCE: Nasal, Nasop haryngealReference Range: Not Detected.This assay is designed to detect the ORF1a/b and E genes of SARS-CoV-2 via nucleic acid amplification. A Not Detected result does not preclude 2019-nCoV infection since the adequacy of sample collection and/or low viral burden may result in presence of viral nucleic acids below the clinical sensitivity of this test method. Fact sheet for providers: https://www.fda.gov/media/676788/download Fact sheet for patients: https://www.fda.gov/media/719640/download This test has received FDA Emergency Use Authorization (EUA) and has been verified for use by [facility] ([facility]). This test is only authorized for the duration of time that circumstances exist to justify the authorization of the emergency use of in vitro diagnostic tests for the detection of SARS-CoV-2 virus and/or diagnosis of COVID-19 infection under section 564(b)(1) of the Act, 21 U.S.C. 360bbb-3(b)(1), unless the authorization is terminated or revoked sooner.[facility] is certified under CLIA-88 as qualified to perform high complexity testing. Testing is performed in the [facility] laboratories located at [address] [place], [place] [address]. GROUP B STREP SCREENon 03-15 GROUP B STREP SCREEN PATIENT: HOLLAND KING LOCATION: C1496 BILL#: [id number] : 89 AGE: SEX: F ORDERED BY: MAHNAZ QUINTANILLA SOURCE: VAGINAL COLLECTED: 03/15/22 14:41 ANTIBIOTICS AT [facility].: RECEIVED : 03/16/22 00:46 SITE: R E S U L T S GROUP B STREP SCREEN FINAL 03/18/22 11:49 NEGATIVE FOR GROUP B BETA STREP. Normal [facility] Comment on above: Performed By: #### G BSCR #### [facility] [address] [place] [address] Laboratory - Microbiology an d Antimicrobial susceptibilityon 03-15-2022 Bacteria identified Aer cx Nom (Genital specimen) [facility] Work Phone: No Panel Informationon 03-15 Please click on the link to view the study images Normal [facility] Work Phone: Normal [facility] Work Phone: No Panel Informationon 02-01 Please click on the link to view the study images Normal [facility] Work Phone: Normal [facility] Work Phone: CBC ANEMIA PANEL WITH REFLEX ,PREGNANCYon 01-08-2022 Erythrocyte distribution width (RBC) [Ratio] 14.3 % Normal 11.5 - 14.5 [facility] Comment on above: Performed By: #### T +S #### [facility] [address] [place] [address] Hematocrit (Bld) [Volume fraction] 38.4 % Normal 36.0 - 46.0 [facility] Comment on above: Performed By: #### T +S #### [facility] [address] [place] [address] Hemoglobin (Bld) [Mass/Vol] 13.0 g/dL Normal 12.0 - 16.0 [facility] Comment on above: Performed By: #### T +S #### [facility] [address] [place] [address] MCHC (RBC) [Mass/Vol] 33.9 g/dL Normal 32.0 - 36.0 [facility] Comment on above: Performed By: #### T +S #### [facility] [address] [place] [address] MCV (RBC) [Entitic vol] 83 fL Normal 80 - 100 [facility] Comment on above: Performed By: #### T +S #### [facility] [address] [place] [address] Platelets (Bld) [#/Vol] 196 10*3/uL Normal 150 - 450 [facility] Comment on above: Performed By: #### T +S #### [facility] [address] [place] [address] RBC 4.65 x10E12/L Normal 4.00 - 5.20 [facility] Comment on above: Performed By: #### T +S #### [facility] [address] [place] [address] REFLEX ADDED, ANEMIA PANEL NONE Normal [facility] Comment on above: Performed By: #### T +S #### [facility] [address] [place] [address] WBC (Bld) [#/Vol] 13.0 10*3/uL High 4.4 - 11.3 [facility] Comment on above: Performed By: #### T +S #### [facility] [address] [place] [address] GLUCOSE,1 HR SCREEN, PREGon 01-08-2022 Glucose [Mass/Vol] 125 mg/dL Normal <135 [facility] Comment on above: Result Comment: Diag nostic value with glucose loading dose of 50 g. Reference values from [place] [employer]. Diabetes Care 2015;38(Suppl.1):S8-S16 Performed By: #### T +S #### [facility] [address] [place] [address] Glucose, 1 Hour Screen, Preg nancyon 01-08-2022 Glucose 1 Hr post 50 g glucose PO [Mass/Vol] 125 mg/dL <[address] Work Phone: Comment on above: Diagnostic value wit h glucose loading dose of 50 g. Reference values from [place] [employer]. Diabetes Care 2015;38(Suppl.1):S8-S16 Laboratory - Hematology and Cell countson 01-08-2022 Erythrocyte distribution width (RBC) [Ratio] 14.3 % See Below [facility] Work Phone: Comment on above: Reference Range: 11. 5 - 14.5 Hematocrit (Bld) [Volume fraction] 38.4 % See Below [facility] Work Phone: Comment on above: Reference Range: 36. 0 - 46.0 Hemoglobin (Bld) [Mass/Vol] 13.0 g/dL See Below [facility] Work Phone: Comment on above: Reference Range: 12. 0 - 16.0 MCHC (RBC) [Mass/Vol] 33.9 g/dL See Below [facility] Work Phone: Comment on above: Reference Range: 32. 0 - 36.0 MCV (RBC) [Entitic vol] 83 fL 80 - 100 [facility] Work Phone: Platelets (Bld) [#/Vol] 196 10*3/uL 150 - 450 [facility] Work Phone: RBC (Bld) [#/Vol] 4.65 {x10E12/L} See Below [facility] Work Phone: Comment on above: Reference Range: 4.0 0 - 5.20 WBC (Bld) [#/Vol] 13.0 10*3/uL above high threshold 4.4 - 11.3 [facility] Work Phone: No Panel Informationon 01-08 NONE [facility] Work Phone: No Panel Informationon 11-23 Normal [facility] Work Phone: CBC ANEMIA PANEL WITH REFLEX ,PREGNANCYon 10-04-2021 Erythrocyte distribution width (RBC) [Ratio] 13.6 % Normal 11.5 - 14.5 [place] [address] [place] Work Phone: Comment on above: Reference Range: 11. 5 - 14.5 Performed By: #### A NEMI #### [address] [address] Hematocrit (Bld) [Volume fraction] 40.1 % Normal 36.0 - 46.0 [place] [address] [place] Work Phone: [phone] Comment on above: Reference Range: 36. 0 - 46.0 Performed By: #### A NEMI #### [address] [address] Hemoglobin (Bld) [Mass/Vol] 13.9 g/dL Normal 12.0 - 16.[address] Work Phone: [phone] Comment on above: Reference Range: 12. 0 - 16.0 Performed By: #### A NEMI #### [address] [address] MCHC (RBC) [Mass/Vol] 34.6 g/dL Normal 32.0 - 36.[address] Work Phone: [phone] Comment on above: Reference Range: 32. 0 - 36.0 Performed By: #### A NEMI #### [address] [address] MCV (RBC) [Entitic vol] 81 fL Normal 80 - [address] Work Phone: [phone] Comment on above: Performed By: #### A NEMI #### [address] [address] Platelets (Bld) [#/Vol] 207 10*3/uL Normal 150 - [address] Work Phone: [phone] Comment on above: Performed By: #### A NEMI #### [address] [address] RBC 4.97 x10E12/L Normal 4.00 - 5.20 [facility] Comment on above: Performed By: #### A NEMI #### [address] [address] REFLEX ADDED, ANEMIA PANEL NONE Normal [facility] Comment on above: Performed By: #### A NEMI #### [address] [address] WBC (Bld) [#/Vol] 8.8 10*3/uL Normal 4.4 - 11.3 [facility] [place] [address] [employer] Work Phone: Comment on above: Performed By: #### A NEMI #### [place] [address] HEPATITIS B SURFACE AGon HEP.B SURFACE AG Non-Reactive Normal NONREACTIVE [facility] Comment on above: Result Comment: Biot in interference may cause falsely decreased results. Patients taking a Biotin dose of up to 5 mg/day should refrain from taking Biotin for 24 hours before sample collection. Providers may contact their local laboratory for further information. Performed By: #### H BSAG #### [facility] [address] [place] [id number] Lab Specimen Source Normal [facility] Comment on above: Performed By: #### H BSAG #### [facility] [address] [place] [address] Performed By: #### H IV #### [facility] [address] [place] [address] Performed By: #### T +S #### [facility] [address] [place] [address] HEPATITIS C ABon 10-04-2021 HEPATITIS C AB Non-Reactive Normal NONREACTIVE [facility] Comment on above: Result Comment: Resu lts from patients taking biotin supplements or receiving high-dose biotin therapy should be interpreted with caution due to possible interference with this test. Providers may contact their local laboratory for further information. Performed By: #### T +S #### [facility] [address] [place], [place] HIV 1/2 ANTIGEN/ANTIBODY SCR EEN WITH REFLEX TO CONFIRMATIONon 10-04-2021 HIV 1/2 AG/AB SCREEN Non-Reactive Normal NONREACTIVE [facility] Comment on above: Result Comment: HIV Ag/Ab screen is performed using the Siemens AtellSputnik8 HIV Ag/Ab Combo assay which detects the presence of HIV p24 antigen as well as antibodies to HIV-1 (Group M and O) and HIV-2. . No laboratory evidence of HIV infection. If acute HIV infection is suspected, consider testing for HIV RNA by PCR (viral load). Performed By: #### H IV #### [facility] [address] [place] [address] HIV 1+2 Ab Qn (S) Non-Reactive See Below [facility] Work Phone: Comment on above: SOURCE: Reference Ra nge: NONREACTIVE HIV Ag/Ab screen is performed using the Siemens Atellica HIV Ag/Ab Combo assay which detects the presence of HIV p24 antigen as well as antibodies to HIV-1 (Group M and O) and HIV-2..No laboratory evidence of HIV infection. If acute HIV infection is suspected, consider testing for HIV RNA by PCR (viral load). Hemoglobin A1Con 10-04-2021 Glucose [Mass/Vol] 97 mg/dL Normal [facility] Work Phone: Comment on above: Performed By: #### T +S #### [facility] [address] [place] [address] HbA1c (Bld) [Mass fraction] 5.0 % Normal [facility] Work Phone: Comment on above: Diagnosis of Diabete s-Adults Non-Diabetic: < or = 5.6% Increased risk for developing diabetes: 5.7-6.4% Diagnostic of diabetes: > or = 6.5%. Monitoring of Diabetes Age (y) Therapeutic Goal (%) Adults: >18 <7.0 Pediatrics: 13-18 <7.5 7-12 <8.0 0- 6 7.5-8.5 [place] [employer]. Diabetes Care 33(S1), May 2009. Result Comment: Diag nosis of Diabetes-Adults Non-Diabetic: < or = 5.6% Increased risk for developing diabetes: 5.7-6.4% Diagnostic of diabetes: > or = 6.5% . Monitoring of Diabetes Age (y) Therapeutic Goal (%) Adults: >18 <7.0 Pediatrics: 13-18 <7.5 7-12 <8.0 0- 6 7.5-8.5 [place] [employer]. Diabetes Care 33(S1), May 2009. Performed By: #### T +S #### [facility] [address] [place] [address] Hepatitis B Surface Antigeno n 10-04-2021 Hepatitis B Surface Antigen Non-Reactive See Below [employer] [employer] Work Phone: Comment on above: SOURCE: Reference Ra urie: NONREACTIVE Biotin interference may cause falsely decreased results. Patients taking a Biotin dose of up to 5 mg/day should refrain from taking Biotin for 24 hours before sample collection. Providers may contact their local laboratory for further information. SOURCE: Reference Ra nge: NONREACTIVE Results from patients taking biotin supplements or receiving high-dose biotin therapy should be interpreted with caution due to possible interference with this test. Providers may contact their local laboratory for further information. Laboratory - Blood bankon ABO group Nom (Bld) Canceled [facility] [employer] Work Phone: ABO group Nom (Bld) O [facility] [employer] Work Phone: [phone] Blood group antibody screen Ql [facility]eled [facility] [employer] Work Phone: Blood group antibody screen Ql Negative [facility] [employer] Work Phone: Rh immune globulin screen (Bld) [Interp] Canceled [facility] [employer] Work Phone: Rh immune globulin screen (Bld) [Interp] Positive [facility] [employer] Work Phone: Laboratory - Hematology and Cell countson 10-04-2021 RBC (Bld) [#/Vol] 4.97 {x10E12/L} See Below [facility] [employer] Work Phone: Comment on above: Reference Range: 4.0 0 - 5.20 No Panel Informationon 10-[address] [employer] Work Phone: RUBELLA IGG ABon 10-04-2021 RUBELLA IGG AB Positive Normal [facility] Comment on above: Result Comment: INTE RPRETATIVE COMMENT NEGATIVE: No IgG antibodies specific to Rubella detected. It is likely that the patient has not had a previous exposure to Rubella through infection or vaccination. Alternatively, the patient may have been exposed to Rubella but a failure to respond may indicate immunodeficiency. EQUIVOCAL:Equivocal results; obtain additional sample for retesting. POSITIVE: IgG antibody to Rubella detected. This may indicate that the patient was exposed to Rubella through infection or vaccination. The interpretation of serological tests should take into account the immunological status of the patient. Test results for patients, including immunocompromised patients, neonates, and pediatric patients, reflect their capacity to respond immunologically to the virus as well as their exposure to the pathogen. Patients treated with IVIG may demonstrate altered results in serological assays. Performed By: #### R UB #### [facility] [address] [place] [address] Rubella IgG Antibodyon 10-04 Rubella virus IgG IA Ql Positive [place] [address] [employer] Work Phone: Comment on above: INTERPRETATIVE COMME NT NEGATIVE: No IgG antibodies specific to Rubella detected. It is likely that the patient has not had a previous exposure to Rubella through infection or vaccination. Alternatively, the patient may have been exposed to Rubella but a failure to respond may indicate immunodeficiency. EQUIVOCAL:Equivocal results; obtain additional sample for retesting. POSITIVE: IgG antibody to Rubella detected. This may indicate that the patient was exposed to Rubella through infection or vaccination.The interpretation of serological tests should take into accountthe immunological status of the patient. Test results forpatients, including immunocompromised patients, neonates, andpediatric patients, reflect their capacity to respondimmunologically to the virus as well as their exposure to thepathogen. Patients treated with IVIG may demonstrate alteredresults in serological assays. SYPHILIS SCREENING WITH REFL EXon 10-04-2021 SYPHILIS TOTAL AB Non-Reactive Normal NONREACTIVE [facility] Comment on above: Result Comment: No s ignificant level of Treponema pallidum antibody detected. Repeat testing in 2 to 4 weeks may be considered if early infection or incubating syphilis infection is suspected. Performed By: #### T +S #### [facility] [address] [place] [id number] T. pallidum IgG+IgM IA Ql (S) Non-Reactive See Below [place] [address] [employer] Work Phone: Comment on above: Reference Range: NON REACTIVENo significant level of Treponema pallidum antibody detected. Repeat testing in 2 to 4 weeks may be considered if early infection or incubating syphilis infection is suspected. TYPE + SCREENon 10-04-2021 ABO TYPE O [facility] Comment on above: Performed By: #### T +S #### [place] [address] RH TYPE Positive [facility] Comment on above: Performed By: #### T +S #### [place] [id number] ABO TYPE Canceled Normal [facility] Comment on above: Order Comment: TEST TYPE + SCREEN WAS CANCELLED, 10/04/2021 07:51 tests to be performed at [facility]. Performed By: #### T +S #### [facility] [address] [place] [address] RH TYPE Canceled Normal [facility] Comment on above: Order Comment: TEST TYPE + SCREEN WAS CANCELLED, 10/04/2021 07:51 tests to be performed at [facility]. Performed By: #### T +S #### [facility] [address] [place] [address] GC + CHLAMYDIA BY AMPLIFIED DETECTIONon 09-29-2021 CHLAMYDIA TRACH.,AMPLIFIED Negative Normal Negative [facility] Comment on above: Result Comment: The APTIMA Combo 2 assay is FDA-approved for Chlamydia trachomatis and Neisseria gonorrhoeae testing on female endocervical and vaginal swabs, ThinPrep liquid pap samples, male urine samples and urethral swabs. Performance characteristics for Chlamydia trachomatis and Neisseria gonorrhoeae testing on specific yta-ENH-sfpfjfbs sample types (female urine samples) have been validated by [facility]. This laboratory is certified by CLIA to perform high complexity testing. Samples from all other sites are not validated for this method. Performed By: #### [facility] #### [facility] [address] [place] [address] N.GONORRHEA,AMPLIFIE D Negative Normal Negative [facility] Comment on above: Result Comment: The APTIMA Combo 2 assay is FDA-approved for Chlamydia trachomatis and Neisseria gonorrhoeae testing on female endocervical and vaginal swabs, ThinPrep liquid pap samples, male urine samples and urethral swabs. Performance characteristics for Chlamydia trachomatis and Neisseria gonorrhoeae testing on specific uub-ICL-kxntmvxy sample types (female urine samples) have been validated by [facility]. This laboratory is certified by CLIA to perform high complexity testing. Samples from all other sites are not validated for this method. Performed By: #### [facility] #### [facility] [address] [place] [address] Cult, Urineon 09-28-2021 Bacteria identified Cx Nom (U) [employer] [address] [employer] Work Phone: GC + CHLAMYDIA BY AMPLIFIED DETECTIONon 09-28-2021 Lab Specimen Source Urine Normal [facility] Comment on above: Performed By: #### [facility] #### [facility] [address] [place] [address] GC + Chlamydia By Amplified Detectionon 09-28-2021 C. trachomatis rRNA MOLINA+probe Ql (Unsp spec) Negative Negative [facility] [address] [place] Work Phone: Comment on above: The APTIMA Combo 2 a ssay is FDA-approved for Chlamydia trachomatis and Neisseria gonorrhoeae testing on female endocervical and vaginal swabs, ThinPrep liquid pap samples, male urine samples and urethral swabs. Performance characteristics for Chlamydia trachomatis and Neisseria gonorrhoeae testing on specific nrg-HFN-emngbbrr sample types (female urine samples) have been validated by [facility]. This laboratory is certified by CLIA to perform high complexity testing. Samples from all other sites are not validated for this method. N. gonorrhoeae rRNA MOLINA+probe Ql (Unsp spec) Negative Negative [employer] Work Phone: Comment on above: SOURCE: Urine The AP MOLLY Combo 2 assay is FDA-approved for Chlamydia trachomatis and Neisseria gonorrhoeae testing on female endocervical and vaginal swabs, ThinPrep liquid pap samples, male urine samples and urethral swabs. Performance characteristics for Chlamydia trachomatis and Neisseria gonorrhoeae testing on specific gdw-KEG-znerdplp sample types (female urine samples) have been validated by [facility]. This laboratory is certified by CLIA to perform high complexity testing. Samples from all other sites are not validated for this method. Laboratory - Cytologyon 09-10 Cytology report Cyto stain.thin prep Doc (Cvx/Vag) [employer] Work Phone: URINE CULTURE,BACTERIALon URINE CULTURE,BACTERIAL PATIENT: SWETA KING [place] [facility] [place] [id number] : 89 AGE: SEX: F ORDERED BY: NORMAN LEONARD SOURCE: URINE COLLECTED: 09/28/21 14:54 ANTIBIOTICS AT [place].: RECEIVED : 09/28/21 23:03 SITE: Clean Catch/Voided R E S U L T S URINE CULTURE,BACTERIAL FINAL 09/29/21 16:21 MIXED URETHRAL MORGAN. Normal [facility] Comment on above: Performed By: #### T +S #### [facility] [address] [place] [address] IO HCG, Urine Test on 08-31-2021 HCG ( test) Ql (U) Positive [employer] Work Phone: LMPon 08-31-2021 Last menstrual period start date 06Jul2021 [employer] Work Phone: DOCUMENT REVIEWER - Office Visiton 08-11 DOCUMENT REVIEWER - Office Visit Diagnoses/Problems Health Maintenance/Risks Encounter for preventive health examination (V70.0) (Z00.00) Assessed Positive urine test (V72.42) (Z32.01) Secondary amenorrhea (626.0) (N91.1) Orders IO HCG, Urine Test; Status:Resulted - Requires Verification; Done: 31Aug2021 09:16AM Follow-up visit in 1 month Outpatient Follow-up Status: Hold For - Scheduling Requested for: 31Aug2021 Tobacco Use Screening; Status:Complete; Done: 31Aug2021 Provider Impressions 1) secondary amenorrhea-ultrasound today consistent with last menstrual period. Will use last menstrual period for dating. Lifestyle modification discussed at length. Patient has vitamins Chief Complaint PT IS HERE TODAY FOR AMENORRHEA. HAS NO CONCERNS. DENIES ANY CRAMPING OR BLEEDING. HAS BREAST TENDERNESS. FEELS NAUSEOUS ON AND OFF. DENIES ANY VOMITING. LMP: 07/06/2021 History of Present [id number] presents for secondary menorrhea. Patient notes some breast tenderness and minimal nausea but no vomiting. Patient taking vitamins. Denies any cramping or bleeding. Patient notes they were trying for few months and just got in the fall Review of Systems Constitutional: No fevers, chills Eye:no vision changes Respiratory: no SOB Cardiovascular: no chest pain Breast: tenderness Gastrointestinal: +nausea. No vomiting, diarrhea, constipation, abdominal pain Genitourinary:no dysuria Gynecology: See HPI Endocrine: No heat or cold intolerance Musculoskeletal: No decreased ROM Skin:No rash Neurologic: No numbness tingling Psychiatric: No anxiety, depression All other: all other systems reviewed and negative for complaint Active Problems Problems Encounter for immunization (V03.89) (Z23) Positive urine test (V72.42) (Z32.01) Past Medical History Problems History of (V13.29) (Z87.59) 02/2015 History of Menstruation Onset age 14 years Surgical History Problems History of Surgically induced 02/2015 Family History Mother Family history of hypertension (V17.49) (Z82.49) Father No pertinent family history Paternal Grandmother Family history of lymphoma (V16.7) (Z80.7) Social History Problems No illicit drug use Non-smoker (V49.89) (Z78.9) Rarely consumes alcohol (V49.89) (Z78.9) Sexually active Allergies Medication No Known Drug Allergies Recorded By: Jemima Louise; 08/14/2020 4:30:04 AM Current Meds Medication NameInstruction Multi +DHA 27-0.8-250 MG Oral Capsule Probiotic Complex Acidophilus CAPS Vitals Vital Signs Recorded: 31Aug2021 09:20AM [id number] Nobgnutcg35 Height5 ft 10 in Tqszla833 lb BMI Edjhfszqdv65.3 kg/m2 BSA Calculated2.28 [id number] Physical Exam General: None acute distress Eye: Intraocular movements are intact HEENT: Normocephalic Cardiovascular: Regular rate rhythm Respiratory: Lungs are clear to auscultation, respirations are nonlabored Gastrointestinal: Soft nontender nondistended normal bowel sounds Musculoskeletal: Normal range of motion Skin: Warm and dry Neurologic: Alert and oriented x3 Psychiatric: Cooperative appropriate mood and affect. Results/Data IO HCG, Urine [id number] 09:16Norman Carvajal MEDLINE LOT: [id number] EXP: 12/09/2022 Test NameResultFlagReference IO Urine hCGPositive Procedure Transvaginal ultrasound shows a single live intrauterine with heart tones 158. Fithian-rump length measures 1.70 cm consistent with 8 weeks 1 day with a due date April 11, 2022. Signatures Electronically signed by : Norman Leonard DO; Aug 31 2021 11:04AM EST (Author) Normal [employer] Vital Signs Date Time Vital Sign Value Performing Clinician Balwinderi mina 01-14-2025 09:12-0400 Body mass index (BMI) [Ratio] 36.45 kg/m2 Kye Kendrick MD Work Phone: [facility] 01-14-2025 09:12-0400 Body weight 113.58 kg Kye Kendrick MD Work Phone: [facility] 01-14-2025 09:12-0400 Diastolic blood pressure 72 mm[Hg] Kye Kendrick MD Work Phone: [facility] 01-14-2025 09:12-0400 Systolic blood pressure 110 mm[Hg] Kye Kendrick MD Work Phone: [facility] 01-05-2025 09:04-0400 Body mass index (BMI) [Ratio] 36.39 kg/m2 Maya Perez MD Work Phone: [facility] 01-05-2025 09:04-0400 Body weight 113.4 kg Maya Perez MD Work Phone: [facility] 01-05-2025 09:04-0400 Diastolic blood pressure 78 mm[Hg] Maya Perez MD Work Phone: [facility] 01-05-2025 09:04-0400 Systolic blood pressure 124 mm[Hg] Maya Perez MD Work Phone: [facility] 12-31-2024 09:08-0400 Body mass index (BMI) [Ratio] 35.81 kg/m2 Sierra Plotrodriguez CQ DEVELOPER.CNM Work Phone: [facility] 12-31-2024 09:08-0400 Body weight 111.58 kg Sierra Casey CQ DEVELOPER.CNM Work Phone: [facility] 12-31-2024 09:08-0400 Diastolic blood pressure 70 mm[Hg] Sierra Plotrodriguez CQ DEVELOPER.CNM Work Phone: [facility] 12-31-2024 09:08-0400 Systolic blood pressure 116 mm[Hg] Sierra Plotrodriguez CQ DEVELOPER.CNM Work Phone: [facility] 12-09-2024 11:30-0400 Body mass index (BMI) [Ratio] 35.52 kg/m2 Shima Burrell CQ DEVELOPER.CNM Work Phone: [facility] 12-09-2024 11:30-0400 Body weight 110.68 kg Shima Burrell CQ DEVELOPER.CNM Work Phone: [facility] 12-09-2024 11:30-0400 Diastolic blood pressure 64 mm[Hg] Shima Burrell CQ DEVELOPER.CNM Work Phone: [facility] 12-09-2024 11:30-0400 Systolic blood pressure 124 mm[Hg] Shima Burrell CQ DEVELOPER.CNM Work Phone: [facility] 12-01-2024 09:07-0400 Body mass index (BMI) [Ratio] 35.81 kg/m2 Maya Perez MD Work Phone: [facility] 12-01-2024 09:07-0400 Body weight 111.58 kg Maya Perez MD Work Phone: [facility] 12-01-2024 09:07-0400 Diastolic blood pressure 72 mm[Hg] Maya Perez MD Work Phone: [facility] 12-01-2024 09:07-0400 Systolic blood pressure 126 mm[Hg] Maya Perez MD Work Phone: [facility] 11-15-2024 08:35-0400 Body mass index (BMI) [Ratio] 35.81 kg/m2 Nirmala Friedman CQ DEVELOPER.ADJUSTER LEADER Work Phone: [facility] 11-15-2024 08:35-0400 Body weight 111.58 kg Nirmala Haclaribel CQ DEVELOPER.ADJUSTER LEADER Work Phone: [facility] 11-15-2024 08:35-0400 Diastolic blood pressure 60 mm[Hg] Nirmala Haury CQ DEVELOPER.ADJUSTER LEADER Work Phone: [facility] 11-15-2024 08:35-0400 Systolic blood pressure 122 mm[Hg] Nirmala Haury CQ DEVELOPER.ADJUSTER LEADER Work Phone: [facility] 11-04-2024 08:25-0400 Body mass index (BMI) [Ratio] 35.75 kg/m2 Corinne Shannon MD Work Phone: [facility] 11-04-2024 08:25-0400 Body weight 111.4 kg Corinne Shannon MD Work Phone: [facility] 11-04-2024 08:25-0400 Diastolic blood pressure 70 mm[Hg] Corinne Shannon MD Work Phone: [facility] 11-04-2024 08:25-0400 Systolic blood pressure 110 mm[Hg] Corinne Shannon MD Work Phone: [facility] 10-29-2024 16:43-0400 Body height 177.8 cm Edward Shad CQ DEVELOPER-ADJUSTER LEADER Work Phone: [facility] 10-29-2024 16:43-0400 Body mass index (BMI) [Ratio] 33.72 kg/m2 Edward Shad CQ DEVELOPER-ADJUSTER LEADER Work Phone: [facility] 10-29-2024 16:43-0400 Body temperature 98.71 [degF] Edward Shad CQ DEVELOPER-ADJUSTER LEADER Work Phone: [facility] 10-29-2024 16:43-0400 Body weight 106.59 kg Edward Shad CQ DEVELOPER-ADJUSTER LEADER Work Phone: [facility] 10-29-2024 16:43-0400 Diastolic blood pressure 84 mm[Hg] Edward Shad CQ DEVELOPER-ADJUSTER LEADER Work Phone: [facility] 10-29-2024 16:43-0400 Heart rate 90 /min Edward Shad CQ DEVELOPER-ADJUSTER LEADER Work Phone: [facility] 10-29-2024 16:43-0400 SaO2% (BldA) [Mass fraction] 100 % Edward Shad CQ DEVELOPER-ADJUSTER LEADER Work Phone: [facility] 10-29-2024 16:43-0400 Systolic blood pressure 126 mm[Hg] Edward Shad CQ DEVELOPER-ADJUSTER LEADER Work Phone: [facility] 10-07-2024 09:33-0400 Body mass index (BMI) [Ratio] 34.5 kg/m2 Bernadette Harry MD Work Phone: [facility] 10-07-2024 09:33-0400 Body weight 107.5 kg Bernadette Harry MD Work Phone: [facility] 10-07-2024 09:33-0400 Diastolic blood pressure 70 mm[Hg] Bernadette Harry MD Work Phone: [facility] 10-07-2024 09:33-0400 Systolic blood pressure 124 mm[Hg] Bernadette Harry MD Work Phone: [facility] 09-09-2024 10:30-0400 Body mass index (BMI) [Ratio] 34.21 kg/m2 Bernadette Harry MD Work Phone: [facility] 09-09-2024 10:30-0400 Body weight 106.59 kg Bernadette Harry MD Work Phone: [facility] 09-09-2024 10:30-0400 Diastolic blood pressure 68 mm[Hg] Bernadette Harry MD Work Phone: [facility] 09-09-2024 10:30-0400 Systolic blood pressure 122 mm[Hg] Bernadette Harry MD Work Phone: [facility] 08-11-2024 08:40-0400 Body mass index (BMI) [Ratio] 33.34 kg/m2 Nirmala Haury CQ DEVELOPER.ADJUSTER LEADER Work Phone: [facility] 08-11-2024 08:40-0400 Body weight 103.87 kg Nirmala Haury CQ DEVELOPER.ADJUSTER LEADER Work Phone: [facility] 08-11-2024 08:40-0400 Diastolic blood pressure 70 mm[Hg] Nirmala Haury CQ DEVELOPER.ADJUSTER LEADER Work Phone: [facility] 08-11-2024 08:40-0400 Systolic blood pressure 118 mm[Hg] Nirmala Haury CQ DEVELOPER.ADJUSTER LEADER Work Phone: [facility] 07-29-2024 13:43-0400 Body height 176.5 cm Nirmala Haury CQ DEVELOPER.ADJUSTER LEADER Work Phone: [facility] 07-29-2024 13:43-0400 Body mass index (BMI) [Ratio] 33.05 kg/m2 Nirmala Haury CQ DEVELOPER.ADJUSTER LEADER Work Phone: [facility] 07-29-2024 13:43-0400 Body weight 102.97 kg Nirmala Haury CQ DEVELOPER.ADJUSTER LEADER Work Phone: [facility] 07-29-2024 13:43-0400 Diastolic blood pressure 80 mm[Hg] Nirmala Rodriguesclaribel CQ DEVELOPER.ADJUSTER LEADER Work Phone: [facility] 07-29-2024 13:43-0400 Systolic blood pressure 126 mm[Hg] Nirmala Rodriguesclaribel CQ DEVELOPER.ADJUSTER LEADER Work Phone: [facility] 07-18-2024 06:13-0400 Diastolic blood pressure 78 mm[Hg] Kishore Hackett MD Work Phone: [facility] 07-18-2024 06:13-0400 Heart rate 98 /min Kishore Hackett MD Work Phone: [facility] 07-18-2024 06:13-0400 Respiratory rate 16 /min Kishore Hackett MD Work Phone: [facility] 07-18-2024 06:13-0400 SaO2% (BldA) [Mass fraction] 98 % Kishore Hackett MD Work Phone: [facility] 07-18-2024 06:13-0400 Systolic blood pressure 128 mm[Hg] Kishore Hackett MD Work Phone: [facility] 07-18-2024 04:51-0400 Body height 177.8 cm Kishore Hackett MD Work Phone: [facility] 07-18-2024 03:59-0400 Body temperature 98.1 [degF] Kishore Hackett MD Work Phone: [facility] 01-27-2024 10:44-0400 Diastolic blood pressure 62 mm[Hg] Kenny Newman MD Work Phone: [facility] 01-27-2024 10:44-0400 Heart rate 61 /min Kenny Newman MD Work Phone: [facility] 01-27-2024 10:44-0400 SaO2% (BldA) [Mass fraction] 99 % Kenny Newman MD Work Phone: [facility] 01-27-2024 10:44-0400 Systolic blood pressure 111 mm[Hg] Kenny Newman MD Work Phone: [facility] 01-27-2024 06:37-0400 Body height 177.8 cm Kenny Newman MD Work Phone: [facility] 01-27-2024 06:37-0400 Body mass index (BMI) [Ratio] 30.13 kg/m2 Kenny Newman MD Work Phone: [facility] 01-27-2024 06:37-0400 Body weight 95.25 kg Kenny Newman MD Work Phone: [facility] 10-27-2023 15:23-0400 Body height 177.8 cm Mireille Ely MD Work Phone: [facility] 10-27-2023 15:23-0400 Body mass index (BMI) [Ratio] 31.22 kg/m2 Mireille Ely MD Work Phone: [facility] 10-27-2023 15:23-0400 Body weight 98.7 kg Mireille Ely MD Work Phone: [facility] 10-27-2023 15:23-0400 Diastolic blood pressure 66 mm[Hg] Mireille Ely MD Work Phone: [facility] 10-27-2023 15:23-0400 Systolic blood pressure 112 mm[Hg] Mireille Ely MD Work Phone: [facility] 07-15-2023 14:56-0500 Body height 177.8 cm Mireille Ely MD Work Phone: [facility] 07-15-2023 14:56-0500 Body mass index (BMI) [Ratio] 34.44 kg/m2 Mireille Ely MD Work Phone: [facility] 07-15-2023 14:56-0500 Body weight 108.86 kg Mireille Ely MD Work Phone: [facility] 07-15-2023 14:56-0500 Diastolic blood pressure 68 mm[Hg] Mireille Ely MD Work Phone: [facility] 07-15-2023 14:56-0500 Systolic blood pressure 114 mm[Hg] Mireille Ely MD Work Phone: [facility] 07-12-2022 15:19-0500 Body height 177.8 cm Silvina Whitfield Work Phone: [facility] Work Phone: 07-12-2022 15:19-0500 Body mass index (BMI) [Ratio] 34.01 kg/m2 Silvina Whitfield Work Phone: [facility] Work Phone: 07-12-2022 15:19-0500 Body surface area Derived from formula 2.24 m2 Silvina Whitfield Work Phone: [facility] Work Phone: 07-12-2022 15:19-0500 Body weight 107.5 kg Silvina Whitfield Work Phone: [facility] Work Phone: 07-12-2022 15:19-0500 Diastolic blood pressure 78 mm[Hg] Silvina Whitfield Work Phone: [employer] [address] Work Phone: 07-12-2022 15:19-0500 Systolic blood pressure 118 mm[Hg] Silvina Whitfield Work Phone: [employer] [address] Work Phone: 07-03-2022 08:52-0500 Body height 177.8 cm Silvina Whitfield Work Phone: [facility] Work Phone: 07-03-2022 08:52-0500 Body mass index (BMI) [Ratio] 33.93 kg/m2 Silvina Whitfield Work Phone: [place] [address] [address] Work Phone: 07-03-2022 08:52-0500 Body surface area Derived from formula 2.24 m2 Silvina Whitfield Work Phone: [address] Work Phone: 07-03-2022 08:52-0500 Body weight 107.28 kg Silvina Whitfield Work Phone: [address] Work Phone: 07-03-2022 08:52-0500 Diastolic blood pressure 78 mm[Hg] Silvina Whitfield Work Phone: [address] Work Phone: 07-03-2022 08:52-0500 Systolic blood pressure 118 mm[Hg] Silvina Whitfield Work Phone: [address] Work Phone: 05-20-2022 10:15-0500 Body height 177.8 cm Silvina Whitfield Work Phone: [address] Work Phone: 05-20-2022 10:15-0500 Body mass index (BMI) [Ratio] 33.36 kg/m2 Silvina Whitfield Work Phone: [address] Work Phone: 05-20-2022 10:15-0500 Body surface area Derived from formula 2.23 m2 Silvina Whitfield Work Phone: [address] Work Phone: 05-20-2022 10:15-0500 Body weight 105.46 kg Silvina Whitfield Work Phone: [employer] Work Phone: 05-20-2022 10:15-0500 Diastolic blood pressure 74 mm[Hg] Julianoer Dipti Whitfield Work Phone: [employer] Work Phone: 05-20-2022 10:15-0500 Systolic blood pressure 116 mm[Hg] Julianoer Dipti Lopezd Work Phone: [employer] Work Phone: 04-11-2022 09:34-0500 Diastolic blood pressure 64 mm[Hg] Silvina Lopezd Other Phone: [facility] 04-11-2022 09:34-0500 Heart rate 78 /min Silvina Whitfield Other Phone: [facility] 04-11-2022 09:34-0500 Systolic blood pressure 120 mm[Hg] Silvina Lopezd Other Phone: [facility] 04-11-2022 06:44-0500 Body temperature 97.88 [degF] Silvina Lopezd Other Phone: [facility] 04-11-2022 06:44-0500 Respiratory rate 16 /min Silvina Whitfield Other Phone: [facility] 04-11-2022 06:44-0500 SaO2% (BldA) [Mass fraction] 99 % Silvina Lopezd Other Phone: [facility] 04-08-2022 08:39-0500 Body height 177.8 cm Silvina Lopezd Work Phone: [facility] [employer] Work Phone: 04-08-2022 08:39-0500 Body mass index (BMI) [Ratio] 36.95 kg/m2 Silvina Lopezd Work Phone: [place] [address] [employer] Work Phone: 04-08-2022 08:39-0500 Body surface area Derived from formula 2.32 m2 Julianoer Dipti Lopezd Work Phone: [place] [address] [employer] Work Phone: 04-08-2022 08:39-0500 Body weight 116.8 kg Julianoer Dipti Whitfield Work Phone: [place] [address] [employer] Work Phone: 04-08-2022 08:39-0500 Diastolic blood pressure 78 mm[Hg] Julianoer Dipti Whitfield Work Phone: [place] [address] [address] Work Phone: 04-08-2022 08:39-0500 Systolic blood pressure 118 mm[Hg] Julianoer Dipti Whitfield Work Phone: [place] [address] [employer] Work Phone: 03-29-2022 15:19-0500 Body height 177.8 cm Julianoer Dipti Whitfield Work Phone: [place] [address] [employer] Work Phone: 03-29-2022 15:19-0500 Body mass index (BMI) [Ratio] 37.36 kg/m2 Julianoer Dipti Whitfield Work Phone: [place] [address] [employer] Work Phone: 03-29-2022 15:19-0500 Body surface area Derived from formula 2.33 m2 Silvina Lopezd Work Phone: [place] [address] [employer] Work Phone: 03-29-2022 15:19-0500 Body weight 118.1 kg Julianoer Dipti Whitfield Work Phone: [place] [address] [employer] Work Phone: 03-29-2022 15:19-0500 Diastolic blood pressure 84 mm[Hg] Silvina Resendez Whitfield Work Phone: [facility] [address] [employer] Work Phone: 03-29-2022 15:19-0500 Systolic blood pressure 122 mm[Hg] Silvina Lopezd Work Phone: [facility] [address] [address] Work Phone: 03-22-2022 14:53-0500 Body height 177.8 cm Silvina Whitfield Work Phone[facility] [address] [address] Work Phone: 03-22-2022 14:53-0500 Body mass index (BMI) [Ratio] 36.91 kg/m2 Silvina Whitfield Work Phone: [place] [address] [address] Work Phone: 03-22-2022 14:53-0500 Body surface area Derived from formula 2.32 m2 Silvina Whitfield Work Phone: [facility] [address] [employer] Work Phone: 03-22-2022 14:53-0500 Body weight 116.69 kg Silvina Resendez Whitfield Work Phone: [place] [address] [address] Work Phone: 03-22-2022 14:53-0500 Diastolic blood pressure 78 mm[Hg] Silvina Resendez Whitfield Work Phone: [place] [address] [employer] Work Phone: 03-22-2022 14:53-0500 Systolic blood pressure 124 mm[Hg] Silvina Whitfield Work Phone: [facility] [address] [address] Work Phone: 03-15-2022 14:42-0400 Body height 177.8 cm Silvina Whitfield Work Phone: [place] [address] [employer] Work Phone: 03-15-2022 14:42-0400 Body mass index (BMI) [Ratio] 36.52 kg/m2 Jitirgeer Dipti Whitfield Work Phone: [employer] Work Phone: 03-15-2022 14:42-0400 Body surface area Derived from formula 2.31 m2 Jitigreer Dipti Whitfield Work Phone: [facility] [address] [address] Work Phone: 03-15-2022 14:42-0400 Body weight 115.44 kg Jitigreer Dipti Whitfield Work Phone: [facility] [address] [address] Work Phone: 03-15-2022 14:42-0400 Diastolic blood pressure 70 mm[Hg] Julianoer Dipti Whitfield Work Phone: [facility] [address] [address] Work Phone: 03-15-2022 14:42-0400 Systolic blood pressure 118 mm[Hg] Silvina Dipti Lopezd Work Phone: [employer] Work Phone: 03-08-2022 14:52-0400 Body height 177.8 cm Jitigreer Dipti Lopezd Work Phone: [facility] [address] [address] Work Phone: 03-08-2022 14:52-0400 Body mass index (BMI) [Ratio] 36.66 kg/m2 Jitigreer Dipti Whitfield Work Phone: [facility] [address] [address] Work Phone: 03-08-2022 14:52-0400 Body surface area Derived from formula 2.32 m2 Julianoer Dipti Lopezd Work Phone: [facility] [address] [address] Work Phone: 03-08-2022 14:52-0400 Body weight 115.9 kg Julianoer Dipti Whitfield Work Phone: [facility] Work Phone: 03-08-2022 14:52-0400 Diastolic blood pressure 78 mm[Hg] Silvina Lopezd Work Phone: [place] [address] [address] Work Phone: 03-08-2022 14:52-0400 Systolic blood pressure 120 mm[Hg] Julianoer Dipti Lopezd Work Phone: [place] [address] [employer] Work Phone: 02-27-2022 15:35-0400 Body height 177.8 cm Silvina Whitfield Work Phone: [place] [address] [address] Work Phone: 02-27-2022 15:35-0400 Body mass index (BMI) [Ratio] 36.76 kg/m2 Silvina Whitfield Work Phone: [place] [address] [employer] Work Phone: 02-27-2022 15:35-0400 Body surface area Derived from formula 2.32 m2 Silvina Whitfield Work Phone: [place] [address] [address] Work Phone: 02-27-2022 15:35-0400 Body weight 116.2 kg Silvina Lopezd Work Phone: [place] [address] [employer] Work Phone: 02-27-2022 15:35-0400 Diastolic blood pressure 70 mm[Hg] Julianoer Dipti Whitfield Work Phone: [place] [address] [employer] Work Phone: 02-27-2022 15:35-0400 Systolic blood pressure 116 mm[Hg] Julianoer Dipti Whitfield Work Phone: [place] [address] [employer] Work Phone: 02-15-2022 15:47-0400 Body height 177.8 cm Silvina Whitfield Work Phone: [facility] [address] [address] Work Phone: 02-15-2022 15:47-0400 Body mass index (BMI) [Ratio] 36.18 kg/m2 Julianoer Dipti Whitfield Work Phone: [facility] [address] [address] Work Phone: 02-15-2022 15:47-0400 Body surface area Derived from formula 2.3 m2 Silvina Resendez Whitfield Work Phone: [facility] [address] [address] Work Phone: 02-15-2022 15:47-0400 Body weight 114.37 kg Silvina Resendez Whitfield Work Phone: [facility] [address] [address] Work Phone: 02-15-2022 15:47-0400 Diastolic blood pressure 82 mm[Hg] Silvina Resendez Whitfield Work Phone: [facility] [address] [address] Work Phone: 02-15-2022 15:47-0400 Systolic blood pressure 122 mm[Hg] Silvina Resendez Whitfield Work Phone: [facility] [place] [address] [address] Work Phone: 02-01-2022 15:01-0400 Body height 177.8 cm Silvina Resendez Whitfield Work Phone: [facility] [place] [address] [address] Work Phone: 02-01-2022 15:01-0400 Body mass index (BMI) [Ratio] 36.28 kg/m2 Silvina Resendez Whitfield Work Phone: [facility] [address] [address] Work Phone: 02-01-2022 15:01-0400 Body surface area Derived from formula 2.31 m2 Silvina Resendez Whitfield Work Phone: [facility] [address] [address] Work Phone: 02-01-2022 15:01-0400 Body weight 114.7 kg Julianoer Dipti Lopezd Work Phone: [facility] [place] [address] [address] Work Phone: 02-01-2022 15:01-0400 Diastolic blood pressure 72 mm[Hg] Jiopher D Whitfield Work Phone: [facility] [address] [address] Work Phone: 02-01-2022 15:01-0400 Systolic blood pressure 120 mm[Hg] Jiopher D Whitfield Work Phone: [facility] [address] [address] Work Phone: 01-18-2022 15:07-0400 Body height 177.8 cm Julianoer Dipti Whitfield Work Phone: [facility] [address] [employer] Work Phone: 01-18-2022 15:07-0400 Body mass index (BMI) [Ratio] 36.18 kg/m2 Julianoer Dipti Lopezd Work Phone: [facility] [address] [address] Work Phone: 01-18-2022 15:07-0400 Body surface area Derived from formula 2.3 m2 Silvina Lopezd Work Phone: [facility] [address] [address] Work Phone: 01-18-2022 15:07-0400 Body weight 114.37 kg Julianoer Dipti Whitfield Work Phone: [facility] [address] [address] Work Phone: 01-18-2022 15:07-0400 Diastolic blood pressure 80 mm[Hg] Julianoer Dipti Whitfield Work Phone: [place] [address] [address] Work Phone: 01-18-2022 15:07-0400 Systolic blood pressure 120 mm[Hg] Julianoer D Whitfield Work Phone: [place] [address] [address] Work Phone: 12-21-2021 15:47-0400 Body height 177.8 cm Silvina Lopezd Work Phone: [place] [address] [address] Work Phone: 12-21-2021 15:47-0400 Body mass index (BMI) [Ratio] 35.37 kg/m2 Julianoer Dipti Whitfield Work Phone: [place] [address] [address] Work Phone: 12-21-2021 15:47-0400 Body surface area Derived from formula 2.28 m2 Silvina Whitfield Work Phone: [place] [address] [address] Work Phone: 12-21-2021 15:47-0400 Body weight 111.8 kg Silvina Lopezd Work Phone: [address] Work Phone: 12-21-2021 15:47-0400 Diastolic blood pressure 64 mm[Hg] Julianoer Dipti Whitfield Work Phone: [place] [address] [address] Work Phone: 12-21-2021 15:47-0400 Systolic blood pressure 112 mm[Hg] Julianoer Dipti Whitfield Work Phone: [place] [address] [address] Work Phone: 11-23-2021 14:48-0400 Body height 177.8 cm Silvina Resendez Whitfield Work Phone: [place] [address] [address] Work Phone: 11-23-2021 14:48-0400 Body mass index (BMI) [Ratio] 34.47 kg/m2 Julianoer Dipti Whitfield Work Phone: [place] [address] [address] Work Phone: 11-23-2021 14:48-0400 Body surface area Derived from formula 2.26 m2 Silvina Whitfield Work Phone: [facility] [address] [employer] Work Phone: 11-23-2021 14:48-0400 Body weight 108.98 kg Silvina Resendez Whitfield Work Phone: [facility] [address] [address] Work Phone: 11-23-2021 14:48-0400 Diastolic blood pressure 70 mm[Hg] Silvina Resendez Whitfield Work Phone: [facility] [address] [address] Work Phone: 11-23-2021 14:48-0400 Systolic blood pressure 120 mm[Hg] Silvina Resendez Whitfield Work Phone: [facility] [address] [address] Work Phone: 10-26-2021 15:39-0400 Body height 177.8 cm Silvina Resendez Whitfield Work Phone: [facility] [address] [address] Work Phone: 10-26-2021 15:39-0400 Body mass index (BMI) [Ratio] 34.22 kg/m2 Silvina Resendez Whitfield Work Phone: [facility] [address] [employer] Work Phone: 10-26-2021 15:39-0400 Body surface area Derived from formula 2.25 m2 Silvina Resendez Whitfield Work Phone: [facility] [address] [employer] Work Phone: 10-26-2021 15:39-0400 Body weight 108.18 kg Silvina Resendez Whitfiedl Work Phone: [facility] [address] [address] Work Phone: 10-26-2021 15:39-0400 Diastolic blood pressure 80 mm[Hg] Silvina Lopezd Work Phone: [facility] [address] [address] Work Phone: 10-26-2021 15:39-0400 Systolic blood pressure 110 mm[Hg] Julianoer Dipti Whitfield Work Phone: [facility] [place] [address] [address] Work Phone: 09-28-2021 15:35-0400 Body height 177.8 cm Julianoer D Whitfield Work Phone: [facility] [place] [address] [address] Work Phone: 09-28-2021 15:35-0400 Body mass index (BMI) [Ratio] 34.61 kg/m2 Christtigreer D Whitfield Work Phone: [facility] [place] [address] [address] Work Phone: 09-28-2021 15:35-0400 Body surface area Derived from formula 2.26 m2 Julianoer Dipti Whitfield Work Phone: [facility] [address] [employer] Work Phone: 09-28-2021 15:35-0400 Body weight 109.4 kg Julianoer Dipti Whitfield Work Phone: [facility] [place] [address] [address] Work Phone: 09-28-2021 15:35-0400 Diastolic blood pressure 78 mm[Hg] Julianoer Dipti Whitfield Work Phone: [facility] [address] [address] Work Phone: 09-28-2021 15:35-0400 Systolic blood pressure 116 mm[Hg] Julianoer D Whitfield Work Phone: [facility] [address] [address] Work Phone: 08-31-2021 09:20-0400 Body height 177.8 cm Julianoer Dipti Whitfield Work Phone: [facility] [place] [address] [address] Work Phone: 08-31-2021 09:20-0400 Body mass index (BMI) [Ratio] 35.3 kg/m2 Julianoer Dipti Whitfield Work Phone: [employer] Work Phone: 08-31-2021 09:20-0400 Body surface area Derived from formula 2.28 m2 Silvina Whitfield Work Phone: [employer] Work Phone: 08-31-2021 09:20-0400 Body weight 111.59 kg Jiadi Whitfield Work Phone: [facility] Work Phone: 08-31-2021 09:20-0400 Diastolic blood pressure 78 mm[Hg] Silvina Whitfield Work Phone: [employer] Work Phone: 08-31-2021 09:20-0400 Systolic blood pressure 120 mm[Hg] Silvina Whitfield Work Phone: [employer] Work Phone: Encounters Encounter Date Encounter Type Care Provider Facility Start: 01-24-2025 ambulatory No Primary Car e Physician Facility:[facility] Start: 01-14-2025 End: 01-14-2025 Patient encounter procedure Kye Kendrick MD Work Phone: OB/Gynecology Comment on above: 38 weeks gestation o f (HCC) (Primary Dx); Encounter for supervision of high risk in third trimester, antepartum (HCC); Obesity affecting in second trimester, unspecified obesity type (HCC) Start: 01-14-2025 End: 01-14-2025 ambulatory KYE KENDRICK Facility:[facility] Start: 01-05-2025 End: 01-05-2025 Patient encounter procedure Maya Perez MD Work Phone: OB/Gynecology Comment on above: Encounter for superv ision of high risk in third trimester, antepartum (HCC) (Primary Dx); History of macrosomia in in prior , currently (HCC); Anxiety during (HCC); Obesity affecting in second trimester, unspecified obesity type (HCC); 37 weeks gestation of (HCC) Start: 01-05-2025 End: 01-05-2025 ambulatory MAYA PEREZ Facility:[facility] Start: 12-31-2024 End: 12-31-2024 Patient encounter procedure Wh[employer] [facility] Comment on above: History of macrosomi a in infant in prior , currently (HCC); Obesity affecting in second trimester, unspecified obesity type (HCC) Encounter for superv ision of high risk in third trimester, antepartum (HCC) (Primary Dx); 36 weeks gestation of (HCC); History of macrosomia in in prior , currently (HCC); Anxiety during (HCC); Obesity affecting in second trimester, unspecified obesity type (HCC) Start: 12-31-2024 End: 12-31-2024 ambulatory MAYA PEREZ Facility:[facility] Start: 12-15-2024 End: 12-15-2024 ambulatory LIANA ROSARIO Facility:[facility] Start: 12-09-2024 End: 12-09-2024 Telephone encounter Shima Burrell APRN.CNM Work Phone: OB/Gynecology Comment on above: OB RUQ pain Start: 12-09-2024 End: 12-09-2024 Patient encounter procedure Shima Burrell APRN.CNM Work Phone: OB/Gynecology Comment on above: Encounter for superv ision of high risk in third trimester, antepartum (HCC) (Primary Dx); 33 weeks gestation of ([facility]); RUQ pain; Nausea Start: 12-09-2024 End: 12-09-2024 ambulatory SHIMA BURRELL Facility:[facility] Start: 12-01-2024 End: 12-01-2024 Patient encounter procedure Maya Perez MD Work Phone: OB/Gynecology Comment on above: Encounter for superv ision of high risk in third trimester, antepartum (HCC) (Primary Dx); History of macrosomia in in prior , currently (HCC); Obesity affecting in second trimester, unspecified obesity type (HCC); Anxiety during (HCC); 32 weeks gestation of (HCC) Encounter for ultras ound to check growth (HCC) (Primary Dx); Encounter for supervision of high risk in second trimester, antepartum (HCC); History of macrosomia in in prior , currently (HCC); Obesity affecting , antepartum, unspecified obesity type (HCC); 32 weeks gestation of (HCC) Start: 12-01-2024 End: 12-01-2024 ambulatory CORINNE SHANNON Facility:[facility] Start: 11-15-2024 End: 11-15-2024 Patient encounter procedure Nirmala Friedman APRN.CNP Work Phone: OB/Gynecology Comment on above: Encounter for superv ision of high risk in third trimester, antepartum (HCC) (Primary Dx); 30 weeks gestation of (HCC); History of macrosomia in infant in prior , currently (HCC); Obesity affecting in second trimester, unspecified obesity type (HCC); Anxiety during (HCC) Start: 11-15-2024 End: 11-15-2024 ambulatory NIRMALA FRIEDMAN Facility:[facility] Start: 11-05-2024 End: 01-05-2025 Follow-up encounter Bernadette Harry MD Work Phone: OB/Gynecology Start: 11-04-2024 End: 11-04-2024 Patient encounter procedure Corinne Shannon MD Work Phone: OB/Gynecology Comment on above: Encounter for superv ision of high risk in second trimester, antepartum (HCC) (Primary Dx); 28 weeks gestation of (HCC); Need for vaccination; History of macrosomia in in prior , currently (HCC); Obesity affecting , antepartum, unspecified obesity type (HCC) Start: 11-04-2024 End: 11-04-2024 ambulatory BERNADETTE HARRY Facility:[facility] Start: 10-30-2024 End: 11-01-2024 ambulatory Bernadette Harry MD Work Phone: OB/Gynecology Comment on above: Prescribed Eye Drops Start: 10-29-2024 End: 10-29-2024 Patient encounter procedure Edward Pedro Monterroso [employer] Work Phone: [facility] Comment on above: Acute conjunctivitis of right eye, unspecified acute conjunctivitis type (Primary Dx) Start: 10-29-2024 End: 10-29-2024 [facility] Start: 10-07-2024 End: 10-07-2024 Patient encounter procedure Bernadette Harry MD Work Phone: OB/Gynecology Comment on above: Screening for diabet es mellitus (Primary Dx) Start: 10-07-2024 End: 10-07-2024 ambulatory BERNADETTE HARRY Facility:[facility] Start: 09-09-2024 End: 11-09-2024 Follow-up encounter Nirmala Friedman APRN.ADJUSTER LEADER Work Phone: OB/Gynecology Start: 09-09-2024 End: 09-09-2024 Patient encounter procedure [employer] [facility] Comment on above: Encounter for antena arabella screening for malformation using ultrasound (HCC) (Primary Dx); 20 weeks gestation of (HCC); Obesity affecting in second trimester, unspecified obesity type (HCC) Encounter for superv ision of high risk in second trimester, antepartum (HCC) (Primary Dx); Obesity affecting in second trimester, unspecified obesity type (HCC); Anxiety during (HCC); 20 weeks gestation of (HCC) Start: 09-09-2024 End: 09-09-2024 ambulatory NIRMALA FRIEDMAN Facility:[facility] Start: 08-11-2024 End: 08-11-2024 ambulatory NIRMALA FRIEDMAN Facility:[facility] Start: 08-11-2024 End: 08-11-2024 Patient encounter procedure Nirmala Friedman APRN.ADJUSTER LEADER Work Phone: OB/Gynecology Comment on above: Encounter for superv ision of high risk in second trimester, antepartum (HCC) (Primary Dx); 16 weeks gestation of (HCC); History of macrosomia in in prior , currently (HCC); Obesity affecting in second trimester, unspecified obesity type (HCC); Anxiety during (HCC); History of depression Encounter for deangelo bell screening for malformation using ultrasound (HCC) (Primary Dx); 16 weeks gestation of (HCC); Obesity affecting in second trimester, unspecified obesity type (HCC) Start: 08-11-2024 End: 08-11-2024 ambulatory NIRMALA FRIEDMAN Facility:[facility] Start: 08-10-2024 End: 08-10-2024 ambulatory Nirmala Friedman APRN.CNP Work Phone: OB/Gynecology Comment on above: Received Outside [facility] Start: 07-30-2024 End: 08-02-2024 Follow-up encounter Nirmala Friedman APRN.CNP Work Phone: OB/Gynecology Start: 07-29-2024 End: 07-29-2024 ambulatory NIRMALA FRIEDMAN Facility:[facility] Start: 07-29-2024 End: 07-29-2024 Patient encounter procedure Nirmala Friedman APRN.CNP Work Phone: OB/Gynecology Comment on above: Encounter for superv ision of high risk in second trimester, antepartum (Primary Dx); 14 weeks gestation of ; Screen for STD (sexually transmitted disease); with care elsewhere in second trimester; Vaginal bleeding affecting early ; Obesity affecting in second trimester, unspecified obesity type; History of macrosomia in infant in prior , currently ; Anxiety during ; History of miscarriage; Constipation during in second trimester Start: 07-18-2024 End: 07-18-2024 Emergency department patient visit Kishore Hackett MD Work Phone: [facility] Emergency Department Start: 07-12-2024 ambulatory KENNY NEWMAN [facility] Start: 01-27-2024 End: 01-27-2024 [facility] Start: 01-27-2024 End: 01-27-2024 Evaluation and management of inpatient Kenny Newman MD Work Phone: [facility] Obstetrics Comment on above: Incomplete Start: 01-26-2024 ambulatory YULI HERNÁNDEZ [facility] Start: 10-27-2023 End: 10-27-2023 Patient encounter procedure Mireille Ely MD Work Phone: [facility] Comment on above: Encounter for IUD re moval (Primary Dx) Start: 10-27-2023 End: 10-27-2023 ambulatory [facility] Ambulatory Start: 07-15-2023 End: 07-15-2023 Patient encounter status Mireille Ely MD Work Phone: [facility] Start: 07-15-2023 End: 07-15-2023 Periodic preventive med est patient 18-39 yrs Mireille Ely MD Work Phone: [facility] Comment on above: Encounter for gyneco logical examination without abnormal finding; Pap smear for cervical cancer screening Start: 07-15-2023 End: 07-15-2023 ambulatory [facility] Ambulatory Start: 07-15-2023 End: 07-15-2023 Encounter for gynecological examination (general) (routine) without abnormal findings [facility] Ambulatory Start: 07-12-2022 Office outpatient vi sit 15 minutes Silvina Whitfield Work Phone: [employer] Work Phone: Start: 07-12-[address] Mahnaz Quintanilla Facility:[id number] Start: 07-03-2022 Patient encounter procedure Silvina Whitfield [facility] Work Phone: Start: 07-03-[address] Harry Whitfield Facility:[id number] Start: 05-23-2022 Chart Update Silvina Whitfield Work Phone: [facility] Work Phone: Start: 05-20-2022 Patient encounter procedure Silvina Whitfield Work Phone: [facility] Work Phone: Start: 05-20-[address] Mahnaz Quintanilla Facility:[id number] Start: 04-09-2022 End: 04-11-2022 Evaluation and management of inpatient Mahnaz Quintanilla [facility] L[facility] 402 Start: 04-08-2022 Office outpatient vi sit 15 minutes Silvina Whitfield Work Phone: [facility] [address] Work Phone: Start: 04-08-[address] Harry Whitfield Facility:[id number] Start: 03-29-[address] Harry Whitfield Facility:[id number] Start: 03-22-2022 Office outpatient vi sit 15 minutes Silvina Whitfield Work Phone: [facility] [address] Work Phone: Start: 03-22-[address] Harry Whitfield Facility:[id number] Start: 03-18-2022 Chart Update Silvina Whitfield Work Phone: [facility] [address] Work Phone: Start: 03-15-[address] Norman Leonard Fa cility:[id number] Start: 03-15-2022 EPVOB, Provider: Mahnaz Quintanilla, Status: Moe, Time: 2:30 PM Silvina Whitfield Work Phone: [facility] [address] Work Phone: Start: 03-15-2022 Office outpatient vi sit 15 minutes Silvina Whitfield Work Phone: [facility] [address] Work Phone: Start: 03-15-[address] Harry Whitfield Facility:[id number] Start: 03-14-2022 AUDIT Silvina Whitfield Work Phone: [facility] [address] Work Phone: Start: 03-08-2022 Office outpatient vi sit 15 minutes Silvina Whitfield Work Phone: [address] Work Phone: Start: 03-08-[address] Harry Whitfield Facility:[id number] Start: 02-27-2022 Office outpatient vi sit 10 minutes Silvina Whitfield Work Phone: [address] Work Phone: Start: 02-27-[address] Harry Whitfield Facility:[id number] Start: 02-19-2022 End: 02-19-[address] Mahnaz Quintanilla Facility:[id number] Start: 02-15-2022 Office outpatient vi sit 15 minutes Silvina Whitfield Work Phone: [address] Work Phone: Start: 02-15-[address] Harry Whitfield Facility:[id number] Start: 02-01-2022 Office outpatient vi sit 10 minutes Silvina Whitfield Work Phone: [place] [address] [address] Work Phone: Start: 02-01-[address] Norman Leonard Fa cility:[id number] Start: 01-18-[address] Harry Whitfield Facility:[id number] Start: 12-21-2021 Office outpatient vi sit 15 minutes Silvina Whitfield Work Phone: [address] Work Phone: Start: 12-21-2021 ambulatory MD MIREILLE ELY Facility:[id number] Start: 11-23-[address] Norman Leonard Fa cility:[id number] Start: 10-26-2021 Office outpatient vi sit 10 minutes Silvina Whitfield Work Phone: [place] [address] [address] Work Phone: Start: 10-26-[address] Harry Whitfield Facility:[id number] Start: 10-19-2021 AUDIT Silvina Whitfield Work Phone: [address] Work Phone: Start: 10-05-2021 Chart Update Silvina Whitfield Work Phone: [address] Work Phone: Start: 10-04-[address] Harry Whitfield Facility:[id number] Start: 10-01-2021 Chart Update Silvina Whitfield Work Phone: [address] Work Phone: Start: 09-28-2021 Office outpatient vi sit 15 minutes Silvina Whitfield Work Phone: [address] Work Phone: Start: 09-28-[address] Harry Whitfield Facility:[id number] Start: 08-31-2021 Office outpatient ne w 30 minutes Silvina Whitfield Work Phone: [address] Work Phone: Start: 08-31-[address] Harry Whitfield Facility:[id number] Encounter for gynecological examination (general) (routine) without abnormal findings Silvina Whitfield Work Phone: [address] Work Phone: Comment on above: 09/28/2021; NIL; Patient encounter status Miguelito Whitfield Work Phone: [address] Work Phone: Procedures Date Procedure Procedure Detail Performing Clinician Start: 01-14-2025 Urnls dip stick/tabl et rgnt non-auto w/o micrscp Kye Kendrick MD Work Phone: Start: 01-05-2025 Urnls dip stick/tabl et rgnt non-auto w/o micrscp Maya Perez MD Work Phone: Start: 12-31-2024 Urnls dip stick/tabl et rgnt non-auto w/o micrscp Sierra Casey CQ DEVELOPER.CNM Work Phone: Start: 12-31-2024 Us preg uterus after 1st trimest 05/12 gestation Maya Perez MD Work Phone: Start: 12-09-2024 Urnls dip stick/tabl et rgnt non-auto w/o micrscp Shima Indra CQ DEVELOPER.CNM Work Phone: Start: 12-01-2024 Us preg uterus after 1st trimest 05/12 gestation Corinne Shannon MD Work Phone: Start: 09-09-2024 Us preg uterus after 1st trimest 05/12 gestation Nirmala Friedman CQ DEVELOPER.ADJUSTER LEADER Work Phone: Start: 08-11-2024 Us preg uterus after 1st trimest 05/12 gestation Nirmala Friedman CQ DEVELOPER.ADJUSTER LEADER Work Phone: Start: 07-18-2024 Us preg uterus real time w/image dcmtn transvag Kishore Hackett MD Work Phone: Start: 01-27-2024 End: 01-27-2024 Tx missed first trimester surgical Kenny Newman MD Work Phone: Start: 01-27-2024 End: 01-27-2024 Urinalysis microscopic only Kenny Newman MD Work Phone: Start: 01-27-2024 Urinalysis, reagent strip without microscopy Kenny Newman MD Work Phone: Start: 01-27-2024 Complete blood count with white cell differential, automated Kenny Newman MD Work Phone: Start: 10-27-2023 Removal intrauterine device iud Mireille Ely MD Work Phone: Start: 07-15-2023 GYNECOLOGIC CYTOLOGY CONSULTATION MIREILLE ELY Start: 07-15-2023 Microscopic observat ion [Identifier] in Cervix by Cyto stain Mireille Ely MD Work Phone: Start: 04-09-[address] Arin Leonard Comment on above: Performed By: #### T +S #### [address] [address] Start: 10-04-[address] Arin Leonard Comment on above: Performed By: #### T +S #### [place] [id number] Start: 10-04-[address] Nelly Whitfield Comment on above: Order Comment: TEST TYPE + SCREEN WAS CANCELLED, 10/04/2021 07:51 tests to be performed at [facility]. Performed By: #### T +S #### [facility] [address] [place] [address] Start: 09-28-2021 Microscopic observat ion [Identifier] in Cervix by Cyto stain Mireille Ely MD Work Phone: Dilation and curettage Kishore Whitfield Work Phone: Insertion of intraut erine contraceptive device Silvina Whitfield Work Phone: Comment on above: Naye 07/03/2022 goo d for 3 years 07/03/2025; Medical termination of Silvina Whitfield Work Phone: Comment on above: 02/2015; Plan of Treatment Date Care Activity Detail Author Start: 2046 Zoster Vaccines (1 o f 2) Zoster Vaccines (1 of 2) [facility] Start: 11-04-2034 Urine microalbumin profile DTaP,Tdap,Td Vaccine (9 - Td or Tdap) [facility] Start: 02-20-2032 DTaP/Tdap/Td Vaccine s (8 - Td or Tdap) DTaP/Tdap/Td Vaccines (8 - Td or Tdap) [facility] Start: 02-20-2032 Tetanus vaccination [facility] Start: 02-20-2032 Urine microalbumin profile DTaP,Tdap,Td Vaccine (8 - Td or Tdap) [facility] Start: 07-14-2028 Screening for malign ant neoplasm of cervix HPV/Cot[facility] Start: 07-14-2026 Screening for malign ant neoplasm of cervix [facility] Start: 01-18-2025 End: 01-18-2025 Patient encounter procedure 01/18/2025 10:40 AM EDT Routine Office Visit OB/Gynecology [address] [place] [address] Liana Rosario MD [address] [place] [address] (Fax) OB OB/Gynecology Comment on above: OB Start: 01-14-2025 End: 01-14-2025 Patient encounter procedure 01/14/2025 9:20 AM EDT Routine Office Visit OB/Gynecology [address] [place] [address] Kye Kendrick MD [address] [place] [address] (Fax) OB OB/Gynecology Comment on above: OB Start: 01-10-2025 Influenza vaccination [facility] Start: 01-05-2025 End: 01-05-2025 Patient encounter procedure 01/05/2025 9:10 AM EDT Routine Office Visit OB/Gynecology [address] [place] [address] Maya Vasquez MD [address] [place] [address] (Fax) OB OB/Gynecology Comment on above: OB Start: 12-31-2024 End: 12-31-2024 Patient encounter procedure [facility]aternal [facility] Comment on above: Growth Growth/OB Start: 12-15-2024 End: 12-15-2024 Patient encounter procedure 12/15/2024 8:10 AM EDT Routine Office Visit OB/Gynecology [address] [place] [address] Liana Rosario MD [address] [place] [address] OB OB/Gynecology Comment on above: OB Start: 12-01-2024 End: 12-01-2025 OBSTETRIC ULTRASOUND WHI OBSTETRIC ULTRASOUND WHI Anc Imaging Routine History of macrosomia in infant in prior , currently (HCC) Obesity affecting in second trimester, unspecified obesity type (HCC) Expected: 12/01/2024, Expires: 12/01/2025 [facility] Work Phone: Comment on above: Expected: 12/01/2024 , Expires: 12/01/2025 Start: 12-01-2024 End: 12-01-2024 Patient encounter procedure [facility]aternal Medicine Comment on above: Growth Growth/OB Start: 11-15-2024 End: 11-15-2024 Patient encounter procedure 11/15/2024 8:45 AM EDT Routine Office Visit OB/Gynecology [address] [place] [address] Nirmala Friedman APRN.ADJUSTER LEADER [address] [place] [address] OB OB/Gynecology Comment on above: OB Start: 11-04-2024 End: 11-04-2025 OBSTETRIC ULTRASOUND WHI OBSTETRIC ULTRASOUND WHI Anc Imaging Routine 28 weeks gestation of (HCC) Encounter for supervision of high risk in second trimester, antepartum (HCC) History of macrosomia in infant in prior , currently (HCC) Obesity affecting , antepartum, unspecified obesity type (HCC) Expected: 11/04/2024, Expires: 11/04/2025 [facility] Work Phone: Comment on above: Expected: 11/04/2024 , Expires: 11/04/2025 Start: 11-04-2024 End: 11-04-2024 Patient encounter procedure 11/04/2024 8:30 AM EDT Routine Office Visit OB/Gynecology [address] [place] [address] Corinne Shannon MD [address] [place] [address] OB Routine OB/Gynecology Comment on above: OB Routine Start: 11-04-2024 End: 11-04-2024 ambulatory 11/04/2024 8:15 AM EDT Results Only [place] [facility] [address] [place] [address] glucose [place] [facility] Comment on above: glucose Start: 10-07-2024 End: 01-06-2025 ANEMIA REFLEX PANEL ANEMIA REFLEX PANEL Lab Routine Screening for diabetes mellitus Expected: 10/07/2024, Expires: 01/06/2025 [facility] Comment on above: Expected: 10/07/2024 , Expires: 01/06/2025 Start: 10-07-2024 End: 10-07-2025 GESTATIONAL GLUCOSE SCREEN, 1-HOUR, 50 GRAM, NON-FASTING GESTATIONAL GLUCOSE SCREEN, 1-HOUR, 50 GRAM, NON-FASTING Lab Routine Screening for diabetes mellitus Expected: 10/07/2024, Expires: 10/07/2025 [facility] Work Phone: Comment on above: Expected: 10/07/2024 , Expires: 10/07/2025 Start: 10-07-2024 End: 10-07-2025 SYPHILIS TREPONEMAL W/REFLEX SYPHILIS TREPONEMAL W/REFLEX Lab Routine Screening for diabetes mellitus Expected: 10/07/2024, Expires: 10/07/2025 [facility] Comment on above: Expected: 10/07/2024 , Expires: 10/07/2025 Start: 10-07-2024 End: 10-07-2024 Patient encounter procedure 10/07/2024 9:40 AM EDT Routine Office Visit OB/Gynecology [address] [place] [place] [address] Bernadette Harry MD [address] [place] [address] OB Routine OB/Gynecology Comment on above: OB Routine Start: 09-28-2024 Screening for malign ant neoplasm of cervix [facility] Start: 09-09-2024 End: 09-09-2024 Patient encounter procedure Maternal Medicine Comment on above: ANATOMY OB Start: 08-27-2024 End: 08-27-2024 Patient encounter procedure 08/27/2024 10:00 AM EDT Routine Office Visit OB/Gynecology [address] [place] [address] Liana Rosario MD [address] [place] [address] 14 weeks pregannt OB/Gynecology Comment on above: 14 weeks pregannt Start: 08-11-2024 End: 08-11-2025 OBSTETRIC ULTRASOUND WHI OBSTETRIC ULTRASOUND WHI Anc Imaging Routine Encounter for supervision of high risk in second trimester, antepartum 16 weeks gestation of Expected: 08/11/2024, Expires: 08/11/2025 [facility] Work Phone: Comment on above: Expected: 08/11/2024 , Expires: 08/11/2025 Start: 08-11-2024 End: 08-11-2024 Patient encounter procedure Maternal Medicine Comment on above: 14 weeks gestation o f [Z3A.14] SIMON AFTER US Early Anatomy/14 wee ks gestation of [Z3A.14] Start: 08-11-2024 End: 08-11-2024 ambulatory 08/11/2024 7:30 AM EDT Results Only [place] [facility] [address] [place] [address] [place] [facility] Start: 07-29-2024 End: 2024 ANEMIA REFLEX PANEL ANEMIA REFLEX PANEL Lab Routine 14 weeks gestation of Expected: 07/29/2024, Expires: 2024 [facility] Work Phone: Comment on above: Expected: 07/29/2024 , Expires: 2024 Start: 07-29-2024 End: 2024 Hemoglobin A1c in Blood HEMOGLOBIN A1C Lab Routine 14 weeks gestation of Expected: 07/29/2024, Expires: 2024 [facility] Comment on above: Expected: 07/29/2024 , Expires: 2024 Start: 07-29-2024 End: 2024 HIV 1+2 Ab [Presence] in Serum or Plasma by Immunoassay HIV 1/2 COMBO WITH REFLEX TO DIFFERENTIATION Lab Routine 14 weeks gestation of Expected: 07/29/2024, Expires: 2024 [facility] Comment on above: Expected: 07/29/2024 , Expires: 2024 Start: 07-29-2024 End: 07-29-2025 OBSTETRIC ULTRASOUND WHI OBSTETRIC ULTRASOUND WHI Anc Imaging Routine 14 weeks gestation of Expected: 07/29/2024, Expires: 07/29/2025 [facility] Comment on above: Expected: 07/29/2024 , Expires: 07/29/2025 Start: 07-29-2024 End: 2024 SYPHILIS TREPONEMAL W/REFLEX SYPHILIS TREPONEMAL W/REFLEX Lab Routine 14 weeks gestation of Expected: 07/29/2024, Expires: 2024 [facility] Comment on above: Expected: 07/29/2024 , Expires: 2024 Start: 07-20-2024 End: 07-20-2024 Patient encounter procedure 07/20/2024 3:00 PM EDT Office Visit [facility] Medical Office Building [facility] [address] [place] [id number] Mireille Ely MD [address] [facility], [facility] [address] [place] [address] [facility] Start: 07-15-2024 Yearly Adult Physical Yearly Adult P hysical [facility] Start: 06-10-2024 RSV VACCINE (1 - Ris k 1-dose series) RSV VACCINE (1 - Risk 1-dose series) [facility] Start: 01-11-2024 COVID-19 Vaccine ( season) COVID-19 Vaccine ( season) [facility] Start: 01-11-2024 COVID-19 VACCINE ( season) COVID-19 VACCINE ( season) [facility] Start: 01-11-2024 COVID-19 VACCINE ( season) COVID-19 VACCINE ( season) [facility] Start: 01-11-2024 Influenza vaccination [facility] Start: 10-29-2023 HPV Vaccine (1 - 3-d ose SCDM series) HPV Vaccine (1 - 3-dose SCDM series) [facility] Start: 07-15-2023 Patient encounter procedure ANNUAL, Provider: Mahnaz Quintanilla, Status: Pen, Time: 3:00 PM [facility] [facility] Work Phone: Start: 01-10-2023 COVID-19 Vaccine ( season) COVID-19 Vaccine ( season) [facility] Start: 01-10-2023 Influenza vaccination Influenza Vacc ine (#1) [facility] Start: 07-12-2022 FUV, Provider: Mahnaz Quintanilla, Status: Pen, Time: 3:15 PM FUV, Provider: Mahnaz Quintanilla, Status: Pen, Time: 3:15 PM [employer] Work Phone: Start: 05-20-2022 Patient encounter procedure [facility] Start: 05-20-2022 PPV, Provider: Mahnaz Quintanilla, Status: Pen, Time: 10:15 AM PPV, Provider: Mahnaz Quintanilla, Status: Pen, Time: 10:15 AM [facility] Work Phone: Start: 04-10-2022 End: 04-10-2023 [facility] Comment on above: May self-administer after voiding administer if patien t screen is non- immune or equivocal After and PRN Conditional order. C onsult Provider prior to administration. Conditional order. 6 00 milliunits/min x 30 mins., then 60 milliunits/min for the remainder of the bag. Consult Provider prior to administration. Start: 03-29-2022 EPVOB, Provider: Mahnaz Quintanilla, Status: Pen, Time: 3:15 PM EPVOB, Provider: Mahnaz Quintanilla, Status: Pen, Time: 3:15 PM [facility] [employer] Work Phone: Start: 03-22-2022 EPVOB, Provider: Mahnaz Quintanilla, Status: Pen, Time: 2:30 PM EPVOB, Provider: Mahnaz Quintanilla, Status: Pen, Time: 2:30 PM [employer] [address] [employer] Work Phone: Start: 03-15-2022 EPVOB, Provider: Mahnaz Quintanilla, Status: Pen, Time: 2:30 PM EPVOB, Provider: Mahnaz Quintanilla, Status: Pen, Time: 2:30 PM [facility] [place] [employer] Work Phone: Start: 03-08-2022 EPVOB, Provider: Mahnaz Quintanilla, Status: Pen, Time: 3:00 PM EPVOB, Provider: Mahnaz Quintanilla, Status: Pen, Time: 3:00 PM [facility] [facility] [employer] Work Phone: Start: 02-27-2022 EPVOB, Provider: Norman Leonard, Status: Pen, Time: 3:45 PM EPVOB, Provider: Norman Leonard, Status: Pen, Time: 3:45 PM [facility] [place] [employer] Work Phone: Start: 02-15-2022 EPVOB, Provider: Mahnaz Quintanilla, Status: Pen, Time: 3:45 PM EPVOB, Provider: Mahnaz Quintanilla, Status: Pen, Time: 3:45 PM [facility] [place] [employer] Work Phone: Start: 01-18-2022 EPVOB, Provider: Mireille Ely, Status: Pen, Time: 3:15 PM EPVOB, Provider: Mireille Ely, Status: Pen, Time: 3:15 PM [facility] [place] [employer] Work Phone: Start: 11-23-2021 EPVOB, Provider: Norman Leonard, Status: Pen, Time: 2:45 PM EPVOB, Provider: Norman Leonard, Status: Pen, Time: 2:45 PM [employer] Work Phone: Start: 10-26-2021 EPVOB, Provider: Norman Leonard, Status: Pen, Time: 3:45 PM EPVOB, Provider: Norman Leonard, Status: Pen, Time: 3:45 PM [employer] Work Phone: Start: 09-28-2021 EPVOB, Provider: Norman Leonard, Status: Pen, Time: 3:30 PM EPVOB, Provider: Norman Leonard, Status: Pen, Time: 3:30 PM [employer] Work Phone: Start: 2017 Screening for malign ant neoplasm of cervix [facility] Start: 2014 Anxiety Screening Anxiety Screening [facility] Start: 2014 Depression Screening Depression Scre [facility] Start: 10-29-2011 HIV screening HIV SCREENING DISCUSSI ON [facility] Start: 10-29-2011 HPV Vaccines (1 - 3-dose series) HPV Vaccines (1 - 3-dose series) [facility] Start: 2009 Varicella vaccination Varicell a Vaccines (1 of 2 - 13+ 2-dose series) [facility] Start: 10-29-2007 HPV Vaccines (1 - 2-dose series) HPV Vaccines (1 - 2-dose series) [facility] Start: 01-13-2002 Varicella vaccination Varicell a Vaccines (1 of 2 - 2-dose childhood series) [facility] Start: 1996 Hepatitis C screening HEPATITI S C VIRUS SCREENING [facility] Start: 1996 Lipid panel Lipid Panel [facility] Start: 1996 Yearly Adult Physical Yearly Adult P hysical [facility] Bacteria identified in Urine by Culture BACTERIAL CULTURE, URINE Microbiology Routine 14 weeks gestation of 07/29/2024 2:33 PM EDT [facility] BACTERIAL VAGINOSIS NAAT BACTERIAL VAGINOSIS NAAT Lab Routine Screen for STD (sexually transmitted disease) Vaginal bleeding affecting early 07/29/2024 2:33 PM EDT [facility] FLORENCIO/TRICHOMONAS NAAT FLORENCIO/TRICHOMONAS NAAT Lab Routine Screen for STD (sexually transmitted disease) Vaginal bleeding affecting early 07/29/2024 2:33 PM EDT [facility] Chlamydia trachomatis+Neisseria gonorrhoeae DNA [Presence] in Unspecified specimen by MOLINA with probe detection GONORRHEA/CHLAMYDIA NAAT Lab Routine 14 weeks gestation of Screen for STD (sexually transmitted disease) 07/29/2024 2:33 PM EDT [facility] Cytology Cervical or vaginal smear or scraping study THINPREP PAP Pathology and Cytology Routine Pap smear for cervical cancer screening Encounter for gynecological examination without abnormal finding 07/15/2023 3:15 PM [facility] Service Area Work Phone: ROUTINE, GR OUP B STREPTOCOCCUS BY PCR ROUTINE, GROUP B STREPTOCOCCUS BY PCR Microbiology Routine Encounter for supervision of high risk in third trimester, antepartum (HCC) 36 weeks gestation of (HCC) 12/31/2024 9:07 AM EDT [facility] Work Phone: Immunizations Immunization Date Immunization Notes Care Provider Fa [facility] 11-04-2024 tetanus toxoid, redu panfilo diphtheria toxoid, and acellular pertussis vaccine, adsorbed Corinne Shannon MD Work Phone: [facility] 02-19-2022 tetanus toxoid, redu panfilo diphtheria toxoid, and acellular pertussis vaccine, adsorbed Bernadette Harry MD Work Phone: [facility] 11-24-2014 meningococcal polysaccharide (groups A, C, Y and W-135) diphtheria toxoid conjugate vaccine (MCV4P) Silvina Whitfield Work Phone: [facility] [employer] Work Phone: Comment on above: Series: 11-24-2014 tetanus toxoid, redu panfilo diphtheria toxoid, and acellular pertussis vaccine, adsorbed Silvina Whitfield Work Phone: [facility] [employer] Work Phone: Comment on above: Series: 12-16-2001 measles, mumps and rubella virus vaccine Julianoer Dipti Whitfield Work Phone: [address] Work Phone: Comment on above: Series: 07-29-2001 diphtheria, tetanus toxoids and acellular pertussis vaccine, unspecified formulation Bernadette Harry MD Work Phone: [facility] 07-29-2001 poliovirus vaccine, inactivated Jitigreer Dipti Whitfield Work Phone: [address] Work Phone: Comment on above: Series: 05-31-1998 haemophilus influenz ae type b vaccine, conjugate unspecified formulation Bernadette Harry MD Work Phone: [facility] 03-01-1998 diphtheria, tetanus toxoids and acellular pertussis vaccine, unspecified formulation Bernadette Harry MD Work Phone: [facility] 03-01-1998 measles, mumps and rubella virus vaccine Julianoer Dipti Whitfield Work Phone: [address] Work Phone: Comment on above: Series: 01-25-1998 hepatitis B vaccine, pediatric or pediatric/adolescent dosage Silvina Whitfield Work Phone: [address] Work Phone: Comment on above: Series: 05-18-1997 diphtheria, tetanus toxoids and acellular pertussis vaccine, unspecified formulation Bernadette Harry MD Work Phone: [facility] 05-18-1997 haemophilus influenz ae type b vaccine, conjugate unspecified formulation Bernadette Harry MD Work Phone: [facility] 05-18-1997 poliovirus vaccine, inactivated Julianoer D Whitfield Work Phone: [address] Work Phone: Comment on above: Series: 03-02-1997 diphtheria, tetanus toxoids and acellular pertussis vaccine, unspecified formulation Bernadette Harry MD Work Phone: [facility] 03-02-1997 haemophilus influenz ae type b vaccine, conjugate unspecified formulation Bernadette Harry MD Work Phone: [facility] 03-02-1997 poliovirus vaccine, inactivated Christopher D Whitfield Work Phone: [place] [address] [employer] Work Phone: Comment on above: Series: 01-26-1997 hepatitis B vaccine, pediatric or pediatric/adolescent dosage Christopher D Whitfield Work Phone: [place] [address] [employer] Work Phone: Comment on above: Series: 01-03-1997 diphtheria, tetanus toxoids and acellular pertussis vaccine, unspecified formulation Bernadette Harry MD Work Phone: [facility] Work Phone: 01-03-1997 haemophilus influenz ae type b vaccine, conjugate unspecified formulation Bernadette Harry MD Work Phone: [facility] 01-03-1997 poliovirus vaccine, inactivated Christopher D Whitfield Work Phone: [place] [address] [employer] Work Phone: Comment on above: Series: 01-01-1997 hepatitis B vaccine, pediatric or pediatric/adolescent dosage Christopher D Whitfield Work Phone: [place] [address] [employer] Work Phone: Comment on above: Series: 1996 hepatitis B vaccine, pediatric or pediatric/adolescent dosage Bernadette Harry MD Work Phone: [facility] Payers Date Payer Category Payer Self-pay 2020 Managed Care (Private) [employer] [id number] 2020 Managed Care (unspecified) [employer] [id number] 2020 Private Health Insurance [id number] 2020 Private Health Insurance [id number] 1996 Unknown [id number] 2.16840.1.653825.3.579. 2.1068 1996 Unknown [id number] 2.16840.1.536511.3.579. 2.1068 1996 Unknown [id number] 2.16840.1.573873.3.579. 2.1068 1996 Unknown [id number] 2.16840.1.321137.3.579. 2.1068 1996 Unknown [id number] 2.16840.1.225341.3.579. 2.1068 1996 Unknown [id number] 2.16.840.1.349987.3.579. 2.1068 1996 Unknown [id number] 2.16.840.1.113542.3.579. 2. 1996 Unknown [id number] 2.16.840.1.100097.3.579. 2. 1996 Unknown [id number] 2.16.840.1.350916.3.579. 2. 1996 Unknown [id number] 2.16840.1.526299.3.579. 2. 1996 Unknown [id number] 2.16.840.1.465708.3.579. 2. 1996 Unknown [id number] 2.840.1.801778.3.579. 2. 1996 Unknown [id number] 2.840.1.228898.3.579. 2. 1996 Unknown [id number] 2.840.1.710097.3.579. 2. 1996 Unknown [id number] 2.840.1.732509.3.579. 2. 1996 Unknown [id number] 2.840.1.048118.3.579. 2. 1996 Unknown [id number] 2.840.1.968470.3.579. 2. 1996 Unknown [id number] 2.840.1.629137.3.579. 2. 1996 Unknown [id number] 2.840.1.821225.3.579. 2. 1996 Unknown [id number] 2.840.1.526658.3.579. 2. 1996 Unknown [id number] 2.16840.1.707035.3.579. 2. 1996 Unknown [id number] 2.840.1.289670.3.579. 2. 1996 Unknown [id number] 2.840.1.079018.3.579. 2. 1996 Unknown [id number] 2.840.1.434458.3.579. 2. 1996 Unknown [id number] 2.16.840.1.124176.3.579. 2.1244 1996 Unknown [id number] 2.16.840.1.862502.3.579. 2.1244 1996 Unknown [id number] 2.16.840.1.510082.3.579. 2.983 1996 Unknown [id number] 2.16.840.1.737007.3.579. 2.983 1996 Unknown [id number] 2.16.840.1.332653.3.579. 2.983 1996 Unknown [id number] 2.16.840.1.463076.3.579. 2.983 1996 Unknown [id number] 2.16.840.1.016198.3.579. 2.1243 Unknown Unknown [id number] 2.16.840.1.594720.3.579. 2.462 Social History Date Type Detail Facility Start: 07-15-2023 End: 07-29-2024 Non-smoker Non-smoker [facility] [address] [place] Work Phone: Tobacco smoking consumption unknown [facility] Start: 07-15-2023 End: 07-29-2024 Tobacco smoking status NHIS Never smoked tobacco [facility] Work Phone: Start: 07-15-2023 End: 07-29-2024 Tobacco use and exposure Smokeless tobacco non-user [facility] Work Phone: Start: 07-15-2023 End: 10-27-2023 Alcohol intake Current drinker of alcohol (finding) [facility] Work Phone: Start: 07-15-2023 End: 07-29-2024 Tobacco use panel [facility] Work Phone: Start: 07-15-2023 Alcohol Comment Rarely [facility] Work Phone: Start: 1995 Sex Assigned At Not on file U [facility] Work Phone: Start: 07-05-2023 End: 10-27-2023 Exposure to SARS-CoV-2 (event) Not sure [facility] Start: 01-27-2024 End: 01-14-2025 Alcoholic beverage intake Ex-drinker (finding) [facility] Start: 11-13-2023 [facility] Start: 01-26-2024 Sex Female (finding) [facility] Start: 07-26-2024 National Score (1-100), lower number is lower risk 87 [facility] Start: 07-29-2024 Education 17 [facility] Start: 07-29-2024 Alcohol Comment rarely [facility] Goals Date Patient Goal Desired Activity /State Personal health goal Functional Status Date Assessment Result Facility Functional observable [facility] Mental Status Date Assessment Result Facility 04-11-2022 Cognitive functions 11-Apr-20 227:15 [facility] Clinical Notes 09-28-2021 to 01-14-2025 Quick Notes - Kye Kendrick MD - 01/14/2025 9:20 AM EDTPrenatal Quick Notes - Kye Kendrick MD - 01/14/2025 9:20 AM EDTPatient InstructionsPatient InstructionsPatient Instructions<item> Note Date & Type Note Facility 01-14-2025 Progress note Formatting of t his note might be different from the original. KJ - S: Sweta denies LOF, contractions or vaginal bleeding. O: 38w6d, see flow sheet SENSITIVE EXAM: The sensitive examination was discussed with the Patient or Patient's Authorized Gold Stamper. As applicable, any other physician, advance practice provider, medical student, or other health professional student that will be observing or involved in the sensitive examination for educational or training purposes was discussed with the Patient or Authorized Gold Stamper. The Patient or Authorized Gold Stamper has agreed to proceed with the sensitive examination. (Sensitive examination includes inspection and/or palpation of the breasts, pelvis, prostate and anorectal regions). A/P: Assessment & Plan 38 weeks gestation of (HCC) Orders: URINE OB DIP B/O Encounter for supervision of high risk in third trimester, antepartum (HCC) Orders: URINE OB DIP B/O Obesity affecting in second trimester, unspecified obesity type (HCC) Orders: URINE OB DIP B/O Elective IOL - discussed R/B/A and informed consent signed. Reviewed labor & FM precautions Kye Kendrick MD [facility] 01-14-2025 Miscellaneous Notes KJ - S: Sweta denies LOF, contractions or vaginal bleeding. O: 38w6d, see flow sheet SENSITIVE EXAM: The sensitive examination was discussed with the Patient or Patient's Authorized Gold Stamper. As applicable, any other physician, advance practice provider, medical student, or other health professional student that will be observing or involved in the sensitive examination for educational or training purposes was discussed with the Patient or Authorized Gold Stamper. The Patient or Authorized Gold Stamper has agreed to proceed with the sensitive examination. (Sensitive examination includes inspection and/or palpation of the breasts, pelvis, prostate and anorectal regions). A/P: Assessment & Plan 38 weeks gestation of (HCC) Orders: URINE OB DIP B/O Encounter for supervision of high risk in third trimester, antepartum (HCC) Orders: URINE OB DIP B/O Obesity affecting in second trimester, unspecified obesity type (HCC) Orders: URINE OB DIP B/O Elective IOL - discussed R/B/A and informed consent signed. Reviewed labor & FM precautions Kye Kendrick MD documented in this encounter [facility] 01-14-2025 Instructions Veronica Loera MA - 01/14/2025 9:10 AM EDT SEQUENTIAL SCREENINGS The [facility] offers sequential screenings for women who are interested in screenings for chromosomal abnormalities and certain defects during a . The sequential screen combines ultrasound and blood tests to determine the risk of chromosomal abnormalities, including Down's Syndrome (Trisomy 21) and Trisomy 18, as well as open neural tube defects including spina bifida. Ultrasound examination is performed between 11 weeks and 13 weeks gestational age. Blood tests are drawn after the ultrasound and again later in the between 15 and 21 weeks gestational age. Please let your physician know if you are interested in this testing. It will require an appointment with our phone technician. This is not an ultrasound performed by a physician in our office during a routine visit. SIGNS AND SYMPTOMS OF LABOR 1. Contractions every 10 minutes or more often 2. Clear, pink, or brownish fluid (water) leaking from vagina 3. Feeling that baby is pushing down, pressure 4. Low, dull backache 5. Cramps that feel like a period 6. Cramps with or without diarrhea If you notice any of the above symptoms, contact our office at [phone] and ask to speak with a nurse. After hours, you can call doctors registry at [phone] OR call [facility] at [phone] and ask to have the doctor aircraft quality control inspector paged. If you consider this an emergency, dial 2-0-4 or go to your nearest emergency department. NEED HELP? Are you dealing with a violent or abusive relationship? Are you a victim of rape or sexual assult? Call [facility] ([place]) 24 hour Crisis Hotline: 420.935.7348 or 479-881-2019. MANUAL Your Guide to a Healthy manual is now on-line. Visit [email or web address] to download your free copy documented in this encounter [facility] 01-05-2025 Progress note Formatting of t his note might be different from the original. DM-Pt doing well. Denies vaginal Bleeding, Leaking fluid, or regular Contractions. Pt reports good movement Physical Exam: Gen: female in no apparent distress Abd: soft, Gravid. Non tender to palpation. See flow sheet @ 37.4 weeks Assessment & Plan Encounter for supervision of high risk in third trimester, antepartum ([facility]) Orders: URINE OB DIP B/O History of macrosomia in in prior , currently ([facility]) Orders: URINE OB DIP B/O Anxiety during ([facility]) Orders: URINE OB DIP B/O Obesity affecting in second trimester, unspecified obesity type ([facility]) Orders: URINE OB DIP B/O 37 weeks gestation of ([facility]) Kick counts and labor reviewed RTO weekly Discussed IOL 39 weeks- elective. Will do cervical exam and schedule next week. Orders: URINE OB DIP B/O Maya Crane MD [facility] 01-05-2025 Miscellaneous Notes DM-Pt doing well. Denies vaginal Bleeding, Leaking fluid, or regular Contractions. Pt reports good movement Physical Exam: Gen: female in no apparent distress Abd: soft, Gravid. Non tender to palpation. See flow sheet @ 37.4 weeks Assessment & Plan Encounter for supervision of high risk in third trimester, antepartum (HCC) Orders: URINE OB DIP B/O History of macrosomia in in prior , currently ([facility]) Orders: URINE OB DIP B/O Anxiety during ([facility]) Orders: URINE OB DIP B/O Obesity affecting in second trimester, unspecified obesity type ([facility]) Orders: URINE OB DIP B/O 37 weeks gestation of (HCC) Kick counts and labor reviewed RTO weekly Discussed IOL 39 weeks- elective. Will do cervical exam and schedule next week. Orders: URINE OB DIP B/O Maya Crane MD documented in this encounter [facility] 01-05-2025 Instructions Tere Romero MA - 01/05/2025 9:02 AM EDT SEQUENTIAL SCREENINGS The [facility] offers sequential screenings for women who are interested in screenings for chromosomal abnormalities and certain defects during a . The sequential screen combines ultrasound and blood tests to determine the risk of chromosomal abnormalities, including Down's Syndrome (Trisomy 21) and Trisomy 18, as well as open neural tube defects including spina bifida. Ultrasound examination is performed between 11 weeks and 13 weeks gestational age. Blood tests are drawn after the ultrasound and again later in the between 15 and 21 weeks gestational age. Please let your physician know if you are interested in this testing. It will require an appointment with our phone technician. This is not an ultrasound performed by a physician in our office during a routine visit. SIGNS AND SYMPTOMS OF LABOR 1. Contractions every 10 minutes or more often 2. Clear, pink, or brownish fluid (water) leaking from vagina 3. Feeling that baby is pushing down, pressure 4. Low, dull backache 5. Cramps that feel like a period 6. Cramps with or without diarrhea If you notice any of the above symptoms, contact our office at [phone] and ask to speak with a nurse. After hours, you can call doctors registry at [phone] OR call [facility] at [phone] and ask to have the doctor aircraft quality control inspector paged. If you consider this an emergency, dial 5--8 or go to your nearest emergency department. NEED HELP? Are you dealing with a violent or abusive relationship? Are you a victim of rape or sexual assult? Call [facility] ([place]) 24 hour Crisis Hotline: 119.461.8914 or 367-750-4447. MANUAL Your Guide to a Healthy manual is now on-line. Visit [email or web address] to download your free copy documented in this encounter [facility] 12-31-2024 Progress note Formatting of t his note might be different from the original. S: Sweta King is a 29 year old female who presents at 36 weeks gestation for a routine visit. Positive movements. Just completed growth US- EFW 70%. KARLA normal. Growth completed due to hx of macrosomia delivery. Denies headache, visual changes, chest pain, shortness of breath, vaginal bleeding, leakage of fluid, or dysuria. Feeling well, no complaints. O: See flow sheet Gen: No apparent distress Abd: Gravid, non tender ASSESSMENT/PLAN: 1. Encounter for supervision of high risk in third trimester, antepartum 2. 36 weeks gestation of 3. History of macrosomia in in prior , currently 4. Anxiety during 5. Obesity affecting in second trimester, unspecified obesity type (HCC) - ICD9: 649.13, - Vertex on TAUS today - GBS collected and sent - Desires physiological onset of labor but would like induction after 40 weeks gestation. Will discuss further - PTL precautions and kick counts reviewed - RTO weekly visits Sierra Casey APRN.CNM [facility] Work Phone: 12-31-2024 Miscellaneous Notes S: Sweta King is a 29 year old female who presents at 36 weeks gestation for a routine visit. Positive movements. Just completed growth US- EFW 70%. KARLA normal. Growth completed due to hx of macrosomia delivery. Denies headache, visual changes, chest pain, shortness of breath, vaginal bleeding, leakage of fluid, or dysuria. Feeling well, no complaints. O: See flow sheet Gen: No apparent distress Abd: Gravid, non tender ASSESSMENT/PLAN: 1. Encounter for supervision of high risk in third trimester, antepartum 2. 36 weeks gestation of 3. History of macrosomia in in prior , currently 4. Anxiety during 5. Obesity affecting in second trimester, unspecified obesity type (HCC) - ICD9: 649.13, - Vertex on TAUS today - GBS collected and sent - Desires physiological onset of labor but would like induction after 40 weeks gestation. Will discuss further - PTL precautions and kick counts reviewed - RTO weekly visits Sierra Casey APRN.CNM documented in this encounter [facility] 12-31-2024 Note Indication Evaluation of growth Maternal obesity, BMI >30, history of macrosomia Impression - Single, live, intrauterine . - presentation is cephalic. - The biometry is consistent with the assigned gestational dating. - The EFW is 3205 g, at the 70%. AC is at the 93%. - Amniotic fluid volume is normal amount with an MVP of 3.6 cm and KARLA of 11.4 cm. - The placenta is posterior, fundal. - No malformations visualized on a limited survey as detailed below. Recommendations Additional follow-up as clinically indicated. Maternal Assessment Height 178 cm Height (ft) 5 ft Height (in) 10 in Physical Exam Initial weight (lb) 220 lb Initial BMI 31.57 kg/m Maternal assessment other: 4 Para 1 REMOTE READ Method Transabdominal ultrasound examination Roman . Number of fetuses: 1 Dating GA by prior assessment 36 w + 6 d LEONA by prior assessment: 01/22/2025 Ultrasound examination on: 12/31/2024 GA by U/S based upon: AC, BPD, Femur, HC GA by U/S 37 w + 3 d LEONA by U/S: 01/18/2025 Assigned: based on stated LEONA, selected on 09/09/2024 Assigned GA 36 w + 6 d Assigned LEONA: 01/22/2025 General Evaluation Cardiac activity present. FHR 143 bpm. movements: present. Presentation: cephalic Placenta: Placental site: posterior, fundal Umbilical cord: Cord vessels: 3 vessel cord Amniotic fluid: Amount of AF: normal amount. MVP 3.6 cm. KARLA 11.4 cm. Q1 3.3 cm, Q2 3.6 cm, Q3 2.7 cm, Q4 1.9 cm Growth Overview Exam date GA BPD (mm) HC (mm) AC (mm) FL (mm) HL (mm) EFW (g) 08/11/2024 16w 4d 38 89% 143.5 76% 132.2 97% 22.6 64% 21.5 55% 208 97% 09/09/2024 20w 5d 49 54% 190.7 69% 182.7 97% 34.1 64% 34.6 84% 463 95% 12/01/2024 32w 4d 82.5 61% 311.3 74% 306.3 94% 62 48% 2297 79% 12/31/2024 36w 6d 92.1 78% 342 80% 344.2 93% 66.9 17% 3205 70% Biometry Standard BPD 92.1 mm 37w 3d 78% Hadlock OFD 121.4 mm -/- 87% Nicolaides HC 342.0 mm 39w 5d 80% Tone AC 344.2 mm 38w 2d 93% Hadlock Femur 66.9 mm 34w 1d 17% Tone EFW 3,205 g 37w 6d 70% Hadlock EFW (lb) 7 lb EFW (oz) 1 oz EFW by: Hadlock (HC-AC-FL) Extended Flavoring Machine Operator 4.9 mm Extremities / Bony Struc FL / HC 0.20 Other Structures FHR 143 bpm Anatomy Lateral ventricles: normal Cavum septi pellucidi: normal Cerebellum: normal Cisterna magna: normal 4-chamber view: normal RVOT view: normal LVOT view: normal 3-vessel view: normal Heart / Thorax Situs: situs solitus (normal) Diaphragm: normal Stomach: normal Kidneys: normal Bladder: normal sex: male Wants to know sex: yes Performed By: Altagracia Mcdaniels RDMS, RVT Read By: Lisbeth Catalan M.D. [facility] 12-31-2024 Instructions Jyoti Yanez MA - 12/31/2024 8:25 AM EDT SEQUENTIAL SCREENINGS The [facility] offers sequential screenings for women who are interested in screenings for chromosomal abnormalities and certain defects during a . The sequential screen combines ultrasound and blood tests to determine the risk of chromosomal abnormalities, including Down's Syndrome (Trisomy 21) and Trisomy 18, as well as open neural tube defects including spina bifida. Ultrasound examination is performed between 11 weeks and 13 weeks gestational age. Blood tests are drawn after the ultrasound and again later in the between 15 and 21 weeks gestational age. Please let your physician know if you are interested in this testing. It will require an appointment with our phone technician. This is not an ultrasound performed by a physician in our office during a routine visit. SIGNS AND SYMPTOMS OF LABOR 1. Contractions every 10 minutes or more often 2. Clear, pink, or brownish fluid (water) leaking from vagina 3. Feeling that baby is pushing down, pressure 4. Low, dull backache 5. Cramps that feel like a period 6. Cramps with or without diarrhea If you notice any of the above symptoms, contact our office at [phone] and ask to speak with a nurse. After hours, you can call [employer] registry at [phone] OR call [facility] at [phone] and ask to have the doctor aircraft quality control inspector paged. If you consider this an emergency, dial 9-1-1 or go to your nearest emergency department. NEED HELP? Are you dealing with a violent or abusive relationship? Are you a victim of rape or sexual assult? Call [facility] ([place]) 24 hour Crisis Hotline: 837.283.6834 or 910-963-9637. MANUAL Your Guide to a Healthy manual is now on-line. Visit [email or web address] to download your free copy documented in this encounter [facility] 12-21-2024 Progress note Formatting of t his note might be different from the original. GOPAL-S: Sweta King is a 29 year old female who presents at 33w5d with LEONA:01/22/2025, by Last Menstrual Period for a problem visit. Denies chest pain, shortness of breath, vaginal bleeding, leakage of fluid, or dysuria. Pressure for last 2 weeks on RUQ abdomen, uncertain if position or not. Increased nausea as well and difficulty eating or drinking. No emesis. Nausea improving thought. Denies Diarrhea. BP last night was 138/76. No vision changes. Mild headache but better today. Thought also constipation and took a stool softener. O: See flow sheet Gen: No apparent distress Abd: Gravid, RUQ mildly tender superficially near fetus buttock, not deep palpation under rib. +2/4 bilateral patellar, no clonus. ASSESSMENT/PLAN: 1. Encounter for supervision of high risk in third trimester, antepartum 2. 33 weeks gestation of 3. RUQ pain - ICD9: 789.01, ICD10: R10.11 - BP normal in office, no other signs of preeclampsia. Nausea improved and pain more musculoskeletal. Recommend PO hydration and braty diet. If nausea/emesis, increase pain, headache worsens or vision changes to notify the office. Will order labs and await results. Agreeable to plan. - COMPREHENSIVE METABOLIC PANEL - URIC ACID - COMPLETE BLOOD COUNT AND DIFFERENTIAL - LIPASE - PROTEIN / CREATININE RATIO - AMYLASE 4. Nausea - ICD9: 787.02, ICD10: R11.0 - COMPREHENSIVE METABOLIC PANEL - URIC ACID - COMPLETE BLOOD COUNT AND DIFFERENTIAL - LIPASE - PROTEIN / CREATININE RATIO - AMYLASE PTL precautions reviewed and when to call RTO as scheduled Shima Burrell, CQ DEVELOPER.CNM [facility] 12-21-2024 Miscellaneous Notes GOPAL-S: Sweta King is a 29 year old female who presents at 33w5d with LEONA:01/22/2025, by Last Menstrual Period for a problem visit. Denies chest pain, shortness of breath, vaginal bleeding, leakage of fluid, or dysuria. Pressure for last 2 weeks on RUQ abdomen, uncertain if position or not. Increased nausea as well and difficulty eating or drinking. No emesis. Nausea improving thought. Denies Diarrhea. BP last night was 138/76. No vision changes. Mild headache but better today. Thought also constipation and took a stool softener. O: See flow sheet Gen: No apparent distress Abd: Gravid, RUQ mildly tender superficially near fetus buttock, not deep palpation under rib. +2/4 bilateral patellar, no clonus. ASSESSMENT/PLAN: 1. Encounter for supervision of high risk in third trimester, antepartum 2. 33 weeks gestation of 3. RUQ pain - ICD9: 789.01, ICD10: R10.11 - BP normal in office, no other signs of preeclampsia. Nausea improved and pain more musculoskeletal. Recommend PO hydration and braty diet. If nausea/emesis, increase pain, headache worsens or vision changes to notify the office. Will order labs and await results. Agreeable to plan. - COMPREHENSIVE METABOLIC PANEL - URIC ACID - COMPLETE BLOOD COUNT AND DIFFERENTIAL - LIPASE - PROTEIN / CREATININE RATIO - AMYLASE 4. Nausea - ICD9: 787.02, ICD10: R11.0 - COMPREHENSIVE METABOLIC PANEL - URIC ACID - COMPLETE BLOOD COUNT AND DIFFERENTIAL - LIPASE - PROTEIN / CREATININE RATIO - AMYLASE PTL precautions reviewed and when to call RTO as scheduled Shima Burrell APRN.CNM documented in this encounter [facility] 12-09-2024 Instructions Tere Romero MA - 12/09/2024 11:23 AM EDT SEQUENTIAL SCREENINGS The [facility] offers sequential screenings for women who are interested in screenings for chromosomal abnormalities and certain defects during a . The sequential screen combines ultrasound and blood tests to determine the risk of chromosomal abnormalities, including Down's Syndrome (Trisomy 21) and Trisomy 18, as well as open neural tube defects including spina bifida. Ultrasound examination is performed between 11 weeks and 13 weeks gestational age. Blood tests are drawn after the ultrasound and again later in the between 15 and 21 weeks gestational age. Please let your physician know if you are interested in this testing. It will require an appointment with our phone technician. This is not an ultrasound performed by a physician in our office during a routine visit. SIGNS AND SYMPTOMS OF LABOR 1. Contractions every 10 minutes or more often 2. Clear, pink, or brownish fluid (water) leaking from vagina 3. Feeling that baby is pushing down, pressure 4. Low, dull backache 5. Cramps that feel like a period 6. Cramps with or without diarrhea If you notice any of the above symptoms, contact our office at [phone] and ask to speak with a nurse. After hours, you can call doctors registry at [phone] OR call [facility] at [phone] and ask to have the doctor aircraft quality control inspector paged. If you consider this an emergency, dial 2-1-9 or go to your nearest emergency department. NEED HELP? Are you dealing with a violent or abusive relationship? Are you a victim of rape or sexual assult? Call [facility] [place] ([facility] 24 hour Crisis Hotline: 459.332.3581 or 512-542-9286. MANUAL Your Guide to a Healthy manual is now on-line. Visit [email or web address] to download your free copy documented in this encounter [facility] 12-09-2024 Telephone encounter Note Called and spoke with patient. Coming at 11:30 AM. Liana Manning RN [facility] 12-09-2024 Miscellaneous Notes Called and spoke with patient. Coming at 11:30 AM. Liana Manning RN Can you please schedule patient today at 1130 but ok to come in anytime. I would like to see her before I go to hospital. If she can't put her at 3:30 slot but come at 1:45. Shima Burrell APRN.CNM 33w5d Patient called with c/o RUQ pain for the last 1-2 weeks. Describes it as a pressure. Pain rate of 6. States baby sits on that side. It's more painful with movement. Patient tearful on the phone because she is now experiencing nausea. Can barely eat or drink. Will only sip on water because of the nausea. No vomiting. No hx of gallstones. Patient feels generally unwell. Fatigued, chills, but afebrile. Took her BP last night and it was 138/76. Elevated compared to her normal range. Denies vision changes. Reported a mild RODRIGUES sometimes. Feels a little better today than she did yesterday. Thought the pain was caused by constipation. Has been taking a stool softener the last 2 days. Please advise. Liana Manning RN documented in this encounter [facility] 12-09-2024 Telephone encounter Note Can you please schedule patient today at 1130 but ok to come in anytime. I would like to see her before I go to hospital. If she can't put her at 3:30 slot but come at 1:45. Shima Burrell APRN.CNM [facility] Work Phone: 12-09-2024 Telephone encounter Note 33w5d Patient called with c/o RUQ pain for the last 1-2 weeks. Describes it as a pressure. Pain rate of 6. States baby sits on that side. It's more painful with movement. Patient tearful on the phone because she is now experiencing nausea. Can barely eat or drink. Will only sip on water because of the nausea. No vomiting. No hx of gallstones. Patient feels generally unwell. Fatigued, chills, but afebrile. Took her BP last night and it was 138/76. Elevated compared to her normal range. Denies vision changes. Reported a mild RODRIGUES sometimes. Feels a little better today than she did yesterday. Thought the pain was caused by constipation. Has been taking a stool softener the last 2 days. Please advise. Liana Manning RN [facility] 12-01-2024 Note Indication Evaluation of growth Maternal obesity, BMI >30, history of macrosomia Impression - Single, live, intrauterine . - presentation is cephalic. - The biometry is consistent with the assigned gestational dating. - The EFW is 2297 g, at the 79%. AC is at the 94%. - The amniotic fluid volume is normal amount with an MVP of 4.4 cm and an KARLA of 11.4 cm. - The placenta is posterior, fundal. - No malformations visualized on a limited survey as detailed below. Recommendations Additional follow-up as clinically indicated. Maternal Assessment Height 178 cm Height (ft) 5 ft Height (in) 10 in Physical Exam Initial weight (lb) 220 lb Initial BMI 31.57 kg/m Maternal assessment other: 4 Para 1 REMOTE READ Method Transabdominal ultrasound examination Roman . Number of fetuses: 1 Dating GA by prior assessment 32 w + 4 d LEONA by prior assessment: 01/22/2025 Ultrasound examination on: 12/01/2024 GA by U/S based upon: AC, BPD, Femur, HC GA by U/S 33 w + 3 d LEONA by U/S: 01/16/2025 Assigned: based on stated LEONA, selected on 09/09/2024 Assigned GA 32 w + 4 d Assigned LEONA: 01/22/2025 General Evaluation Cardiac activity present. FHR 140 bpm. movements: present. Presentation: cephalic Placenta: Placental site: posterior, fundal Umbilical cord: Cord vessels: 3 vessel cord Amniotic fluid: Amount of AF: normal amount. MVP 4.4 cm. KARLA 11.4 cm. Q1 2.8 cm, Q2 4.4 cm, Q3 2.6 cm, Q4 1.6 cm Growth Overview Exam date GA BPD (mm) HC (mm) AC (mm) FL (mm) HL (mm) EFW (g) 08/11/2024 16w 4d 38 89% 143.5 76% 132.2 97% 22.6 64% 21.5 55% 208 97% 09/09/2024 20w 5d 49 54% 190.7 69% 182.7 97% 34.1 64% 34.6 84% 463 95% 12/01/2024 32w 4d 82.5 61% 311.3 74% 306.3 94% 62 48% 2297 79% Biometry Standard BPD 82.5 mm 33w 1d 61% Hadlock OFD 112.0 mm 34w 0d 80% Nicolaides HC 311.3 mm 33w 6d 74% Tone AC 306.3 mm 34w 4d 94% Hadlock Femur 62.0 mm 32w 0d 48% Tone EFW 2,297 g 33w 4d 79% Hadlock EFW (lb) 5 lb EFW (oz) 1 oz EFW by: Hadlock (HC-AC-FL) Extended Flavoring Machine Operator 6.2 mm Extremities / Bony Struc FL / HC 0.20 Other Structures FHR 140 bpm Anatomy Lateral ventricles: normal Cavum septi pellucidi: normal Cerebellum: normal Cisterna magna: normal 4-chamber view: normal RVOT view: normal LVOT view: normal 3-vessel view: normal Heart / Thorax Situs: situs solitus (normal) Diaphragm: normal Stomach: normal Kidneys: normal Bladder: normal sex: male Wants to know sex: yes Performed By: Altagracia Mcdaniels RDMS, RVT Read By: Mariel Mcgee M.D. [facility] 12-01-2024 Progress note Formatting of t his note might be different from the original. DM-Pt doing well. Denies vaginal Bleeding, Leaking fluid, or regular Contractions. Pt reports good movement Physical Exam: Gen: female in no apparent distress Abd: soft, Gravid. Non tender to palpation. See flow sheet @ 32.4 weeks Assessment & Plan Encounter for supervision of high risk in third trimester, antepartum (HCC) History of macrosomia in in prior , currently ([facility]) Orders: OBSTETRIC ULTRASOUND WHI; Future Obesity affecting in second trimester, unspecified obesity type (HCC) Repeat growth at 36 weeks Growth today pending Declined ASA Orders: OBSTETRIC ULTRASOUND WHI; Future Anxiety during (HCC) 32 weeks gestation of ([facility]) RTO 2 weeks Maya Crane MD [facility] 12-01-2024 Miscellaneous Notes DM-Pt doing well. Denies vaginal Bleeding, Leaking fluid, or regular Contractions. Pt reports good movement Physical Exam: Gen: female in no apparent distress Abd: soft, Gravid. Non tender to palpation. See flow sheet @ 32.4 weeks Assessment & Plan Encounter for supervision of high risk in third trimester, antepartum (HCC) History of macrosomia in infant in prior , currently ([facility]) Orders: OBSTETRIC ULTRASOUND WHI; Future Obesity affecting in second trimester, unspecified obesity type (HCC) Repeat growth at 36 weeks Growth today pending Declined ASA Orders: OBSTETRIC ULTRASOUND WHI; Future Anxiety during (HCC) 32 weeks gestation of ([facility]) RTO 2 weeks Maya Crane MD documented in this encounter [facility] 12-01-2024 Instructions Tere Romero MA - 12/01/2024 8:45 AM EDT SEQUENTIAL SCREENINGS The [facility] offers sequential screenings for women who are interested in screenings for chromosomal abnormalities and certain defects during a . The sequential screen combines ultrasound and blood tests to determine the risk of chromosomal abnormalities, including Down's Syndrome (Trisomy 21) and Trisomy 18, as well as open neural tube defects including spina bifida. Ultrasound examination is performed between 11 weeks and 13 weeks gestational age. Blood tests are drawn after the ultrasound and again later in the between 15 and 21 weeks gestational age. Please let your physician know if you are interested in this testing. It will require an appointment with our phone technician. This is not an ultrasound performed by a physician in our office during a routine visit. SIGNS AND SYMPTOMS OF LABOR 1. Contractions every 10 minutes or more often 2. Clear, pink, or brownish fluid (water) leaking from vagina 3. Feeling that baby is pushing down, pressure 4. Low, dull backache 5. Cramps that feel like a period 6. Cramps with or without diarrhea If you notice any of the above symptoms, contact our office at [phone] and ask to speak with a nurse. After hours, you can call doctors registry at [phone] OR call [facility] at [phone] and ask to have the doctor aircraft quality control inspector paged. If you consider this an emergency, dial 1-9-0 or go to your nearest emergency department. NEED HELP? Are you dealing with a violent or abusive relationship? Are you a victim of rape or sexual assult? Call [facility] ([place]) 24 hour Crisis Hotline: 794.663.7753 or 044-603-1173. MANUAL Your Guide to a Healthy manual is now on-line. Visit [email or web address] to download your free copy documented in this encounter [facility] 11-15-2024 Progress note Formatting of t his note might be different from the original. EH - S: Sweta is a 29 year old female who presents at 30w2d for a routine visit. Feeling movement. Denies headache, visual changes, chest pain, shortness of breath, vaginal bleeding, leakage of fluid, or dysuria. Occasional bilateral edema to lower extremities. O: See flow sheet Gen: No apparent distress Abd: Gravid, nontender, S>D, 26 lb TWG ASSESSMENT/PLAN: 1. Encounter for supervision of high risk in third trimester, antepartum ([facility]) - ICD9: V23.9, ICD10: O09.93 (primary diagnosis) - Discussed compression stockings for edema 2. 30 weeks gestation of ([facility]) - ICD9: V22.2, ICD10: Z3A.30 - Continue PNV - 28 week labs reviewed 3. History of macrosomia in infant in prior , currently ([facility]) - ICD9: V23.49, ICD10: O09.299 - Growth scheduled 4. Obesity affecting in second trimester, unspecified obesity type ([facility]) - ICD9: 649.13, ICD10: O99.212 - Pre BMI 32 5. Anxiety during ([facility]) - ICD9: 648.43, 300.00, ICD10: O99.340, F41.9 - Controlled at this time PTL precautions and kick counts reviewed. RTO in 2 weeks or sooner as needed. Nirmala Friedman APRN.ADJUSTER LEADER T [facility] 11-15-2024 Miscellaneous Notes EH - S: Sweta is a 29 year old female who presents at 30w2d for a routine visit. Feeling movement. Denies headache, visual changes, chest pain, shortness of breath, vaginal bleeding, leakage of fluid, or dysuria. Occasional bilateral edema to lower extremities. O: See flow sheet Gen: No apparent distress Abd: Gravid, nontender, S>D, 26 lb TWG ASSESSMENT/PLAN: 1. Encounter for supervision of high risk in third trimester, antepartum ([facility]) - ICD9: V23.9, ICD10: O09.93 (primary diagnosis) - Discussed compression stockings for edema 2. 30 weeks gestation of ([facility]) - ICD9: V22.2, ICD10: Z3A.30 - Continue PNV - 28 week labs reviewed 3. History of macrosomia in infant in prior , currently ([facility]) - ICD9: V23.49, ICD10: O09.299 - Growth scheduled 4. Obesity affecting in second trimester, unspecified obesity type (HCC) - ICD9: 649.13, ICD10: O99.212 - Pre BMI 32 5. Anxiety during (HCC) - ICD9: 648.43, 300.00, ICD10: O99.340, F41.9 - Controlled at this time PTL precautions and kick counts reviewed. RTO in 2 weeks or sooner as needed. Nirmala Friedman APRN.ADJUSTER LEADER documented in this encounter [facility] 11-15-2024 Instructions Anita Benton MA - 11/15/2024 8:32 AM EDT SEQUENTIAL SCREENINGS The [facility] offers sequential screenings for women who are interested in screenings for chromosomal abnormalities and certain defects during a . The sequential screen combines ultrasound and blood tests to determine the risk of chromosomal abnormalities, including Down's Syndrome (Trisomy 21) and Trisomy 18, as well as open neural tube defects including spina bifida. Ultrasound examination is performed between 11 weeks and 13 weeks gestational age. Blood tests are drawn after the ultrasound and again later in the between 15 and 21 weeks gestational age. Please let your physician know if you are interested in this testing. It will require an appointment with our phone technician. This is not an ultrasound performed by a physician in our office during a routine visit. SIGNS AND SYMPTOMS OF LABOR 1. Contractions every 10 minutes or more often 2. Clear, pink, or brownish fluid (water) leaking from vagina 3. Feeling that baby is pushing down, pressure 4. Low, dull backache 5. Cramps that feel like a period 6. Cramps with or without diarrhea If you notice any of the above symptoms, contact our office at [phone] and ask to speak with a nurse. After hours, you can call doctors registry at [phone] OR call [facility] at [phone] and ask to have the doctor aircraft quality control inspector paged. If you consider this an emergency, dial 9-- or go to your nearest emergency department. NEED HELP? Are you dealing with a violent or abusive relationship? Are you a victim of rape or sexual assult? Call [facility] ([place]) 24 hour Crisis Hotline: 841.915.6364 or 820-743-2723. MANUAL Your Guide to a Healthy manual is now on-line. Visit [email or web address] to download your free copy documented in this encounter [facility] 11-04-2024 Progress note Formatting of t his note might be different from the original. SW- No pain, vb, lof. Good FM PE: Gen- NAD, well appearing Abd- Soft, gravid, NT See flowsheet A/p 28 wk gestation - Tdap today - 28 wk labs today - LARC signed - plan sheet given - H/o macrosomia: Check growth US - RTO 2 wks Corinne Shannon DO [facility] 11-04-2024 Miscellaneous Notes SW- No pain, vb, lof. Good FM PE: Gen- NAD, well appearing Abd- Soft, gravid, NT See flowsheet A/p 28 wk gestation - Tdap today - 28 wk labs today - LARC signed - plan sheet given - H/o macrosomia: Check growth US - RTO 2 wks Corinne Shannon DO documented in this encounter [facility] 11-04-2024 Note HNO ID: [id number] Author: VERONICA LOERA MA Service: ? Author Type: Multimedia Designer Type: Progress Notes Filed: 11/04/2024 12:21 Note Text: Patient identified by name and date of . Sweta King presents today for a vaccination of Tdap. Patient denies an allergy to latex: yes Patient denies a severe (life-threatening) allergy to a previous dose of Tdap, DTP, DTaP, DT or Td vaccine. Yes Patient denies history of epilepsy or neurological problems: Yes Patient is afebrile and denies being moderately or severely ill: Yes Patient denies history of Guillain-Paguate Syndrome (a severe paralytic illness): Yes Tdap Adacel injection was given without incident. See immunizations for details of immunizations administered today. VIS sheet provided: Yes Provider Corinne Shannon DO was present in office at time of injection. Veronica Loera MA [facility] 11-04-2024 History of Present illness Narrative Patient identified by name and date of . Sweta King presents today for a vaccination of Tdap. Patient denies an allergy to latex: yes Patient denies a severe (life-threatening) allergy to a previous dose of Tdap, DTP, DTaP, DT or Td vaccine. Yes Patient denies history of epilepsy or neurological problems: Yes Patient is afebrile and denies being moderately or severely ill: Yes Patient denies history of Guillain-Paguate Syndrome (a severe paralytic illness): Yes Tdap Adacel injection was given without incident. See immunizations for details of immunizations administered today. VIS sheet provided: Yes Provider Corinne Shannon DO was present in office at time of injection. Veronica Loera MA documented in this encounter [facility] 11-04-2024 Instructions Veronica Loera MA - 11/04/2024 8:23 AM EDT SEQUENTIAL SCREENINGS The [facility] offers sequential screenings for women who are interested in screenings for chromosomal abnormalities and certain defects during a . The sequential screen combines ultrasound and blood tests to determine the risk of chromosomal abnormalities, including Down's Syndrome (Trisomy 21) and Trisomy 18, as well as open neural tube defects including spina bifida. Ultrasound examination is performed between 11 weeks and 13 weeks gestational age. Blood tests are drawn after the ultrasound and again later in the between 15 and 21 weeks gestational age. Please let your physician know if you are interested in this testing. It will require an appointment with our phone technician. This is not an ultrasound performed by a physician in our office during a routine visit. SIGNS AND SYMPTOMS OF LABOR 1. Contractions every 10 minutes or more often 2. Clear, pink, or brownish fluid (water) leaking from vagina 3. Feeling that baby is pushing down, pressure 4. Low, dull backache 5. Cramps that feel like a period 6. Cramps with or without diarrhea If you notice any of the above symptoms, contact our office at [phone] and ask to speak with a nurse. After hours, you can call doctors registry at [phone] OR call [facility] at [phone] and ask to have the doctor aircraft quality control inspector paged. If you consider this an emergency, dial 9-1-6 or go to your nearest emergency department. NEED HELP? Are you dealing with a violent or abusive relationship? Are you a victim of rape or sexual assult? Call [facility] ([place]) 24 hour Crisis Hotline: 387.975.8705 or 390-282-2194. MANUAL Your Guide to a Healthy manual is now on-line. Visit [email or web address] to download your free copy documented in this encounter [facility] 11-01-2024 Telephone encounter Note Patient 28w2d, next appointment is on 11/04. Altagracia Bright RN [facility] 11-01-2024 Miscellaneous Notes Patient 28w2d, next appointment is on 11/04. Altagracia Bright RN documented in this encounter [facility] 10-29-2024 History of Present illness Narrative [facility] Edward Monterroso APRN-ADJUSTER LEADER Visit Note - 10/29/2024 5:05 PM This note was generated with voice recognition software and may contain errors including spelling, grammar, syntax, and misrecognization of what was dictated. Patient: Sweta King, , 29 y.o., female PCP: Silvina Whitfield MD -- ALLERGIES: Allergies[1] CURRENT MEDICATIONS: Current Outpatient Medications Medication Instructions erythromycin (Romycin) 5 mg/gram (0.5 %) ophthalmic ointment 1 application in affected eye 4 times a day x 7 days. Apply 1 cm strip of ointment into lower conjunctival sac. -- PAST MEDICAL HX: Is currently 29 weeks . No known health issues. SURGICAL HX: Surgical History[2] FAMILY HX: No pertinent history. SOCIAL HX: reports that she has never smoked. She has never used smokeless tobacco. . -- CHIEF COMPLAINT: Chief Complaint Patient presents with Eye Problem Right eye irritation X today HISTORY OF PRESENT ILLNESS: The history was obtained from patient. Sweta is a 29 y.o. female, who presents with a chief complaint of redness and irritation in R eye and R upper eyelid tenderness that started this AM when she woke up - reports she accidentally fell asleep while wearing her contacts last night. Reports her eye has also been watery; she reports it is slightly sensitive to light, but not really bothersome in that way. Reports almost feels like I have something in it, like I have a stye- believes she may have seen a stye on her upper eyelid. Denies any changes in vision. No known injury or other known irritants. No known ill contacts. Has tried OTC stye ointment and has been applying warm compresses, without much relief. No fever, chills, headaches, or other constitutional complaints. Reports has been trying not to rub her eye, but admits is difficult. REVIEW OF SYSTEMS: 10 systems reviewed negative with exception of history of present illness as listed above. TODAY'S VITALS: BP 126/84 Pulse 90 Temp 37.1 C (98.7 F) (Temporal) Ht 1.778 m (5' 10) Wt 107 kg (235 lb) SpO2 100% BMI 33.72 kg/m PHYSICAL EXAMINATION: General: Pleasant female, sitting comfortably on exam table, in no acute distress. Eyes: Pupils equal, round and reactive to light; no photophobia. R eye conjunctiva moderately injected, scant purulent drainage and clear watering also noted. No ciliary flush; no grossly visible abnormality. EOMI intact without pain/limitation. No tenderness/edema/erythema or rashes/lesions noted to eyelids/periorbital areas. Visual acuity (uncorrected): 20/30 OD, 20/20 OS. HENT: Airway patent, Oral mucosa moist. Mild audible nasal congestion and clear rhinorrhea. Neck: Supple. No lymphadenopathy. Respiratory: Lungs are clear to auscultation; no wheezes, rhonchi, or rales. Respirations unlabored, Breath sounds are equal. Cardiovascular: Regular rate, Regular rhythm. Normal S1S2. No m/r/g. Neurologic: Alert and oriented, no focal deficits, no motor or sensory deficits. Cognition and Speech: Oriented, Speech clear and coherent. Psychiatric: Cooperative, Appropriate mood & affect. -- Medical Decision Making LABORATORY or RADIOLOGICAL IMAGING ORDERS/RESULTS: None IMPRESSION/PLAN: Course: Worsening; stable 1. Acute conjunctivitis of right eye, unspecified acute conjunctivitis type (Primary) - erythromycin (Romycin) 5 mg/gram (0.5 %) ophthalmic ointment; 1 application in affected eye 4 times a day x 7 days. Apply 1 cm strip of ointment into lower conjunctival sac. Dispense: 3.5 g; Refill: 0 Sxs/exam consistent with conjunctivitis; no light sensitivity on exam today, but still some concern for possible early corneal ulcer. No other red flags on exam. Attempted to refer to Ophthalmology for SHIV appointment, but they are already closed for the night. Will attempt to refer to another specialist first thing in the AM, and in the meantime, patient aware to seek care immediately for any increase in eye discomfort or photophobia. Treatment somewhat complicated in light of her current . Will start Erythromycin ointment today and hopefully will be able to see a specialist for further evaluation first thing in the AM. Also encouraged gentle cleansing with tear-free baby shampoo several times daily. Encouraged to otherwise avoid touching/rubbing eye as able. Discussed expectations, reviewed red flags to monitor for, counseled on instructions, risks, and potential adverse reactions of treatments, and advised to seek care if sxs not improving over the next 12-24 hours, or to ER or data keyer SHIV for any pain, increasing purulent discharge, changes in vision, photophobia, or other red flags. Patient verbalized understanding and agreed with plan of care; questions were encouraged and answered. Update 10/30/24 at 8 AM - contacted patient, who states has had very slight increase in light sensitivity. Contacted Dr. Hughes's office (closed) and Dr. Garsia's office - Dr. Garsia was able to schedule patient for follow up at 10:15 AM today. Patient notified and aware; agrees to attend appointment, and still understands to seek care for worsening discomfort/light sensitivity in the meantime. JENIFER Card Advanced Practice Provider [facility] [1] No Known Allergies [2] Past Surgical History: Procedure Laterality Date INTRAUTERINE DEVICE INSERTION 07/03/2022 Naye-- Removal 07/03/2025 OTHER SURGICAL HISTORY 02/2015 Surgically induced OTHER SURGICAL HISTORY 02/2015 Dilation and curettage documented in this encounter [facility] Work Phone: 10-07-2024 Progress note Formatting of t his note might be different from the original. RR- Good FM. No VB/LOF . Cont. PNV. F/u in 4 weeks for 28 week labs. Bernadette Harry MD [facility] 10-07-2024 Miscellaneous Notes RR- Good FM. No VB/LOF . Cont. PNV. F/u in 4 weeks for 28 week labs. Bernadette Harry MD documented in this encounter [facility] 10-07-2024 Instructions Jyoti Yanez MA - 10/07/2024 9:31 AM EDT SEQUENTIAL SCREENINGS The [facility] offers sequential screenings for women who are interested in screenings for chromosomal abnormalities and certain defects during a . The sequential screen combines ultrasound and blood tests to determine the risk of chromosomal abnormalities, including Down's Syndrome (Trisomy 21) and Trisomy 18, as well as open neural tube defects including spina bifida. Ultrasound examination is performed between 11 weeks and 13 weeks gestational age. Blood tests are drawn after the ultrasound and again later in the between 15 and 21 weeks gestational age. Please let your physician know if you are interested in this testing. It will require an appointment with our phone technician. This is not an ultrasound performed by a physician in our office during a routine visit. SIGNS AND SYMPTOMS OF LABOR 1. Contractions every 10 minutes or more often 2. Clear, pink, or brownish fluid (water) leaking from vagina 3. Feeling that baby is pushing down, pressure 4. Low, dull backache 5. Cramps that feel like a period 6. Cramps with or without diarrhea If you notice any of the above symptoms, contact our office at [phone] and ask to speak with a nurse. After hours, you can call doctors registry at [phone] OR call [facility] at [phone] and ask to have the doctor aircraft quality control inspector paged. If you consider this an emergency, dial 9-1-5 or go to your nearest emergency department. NEED HELP? Are you dealing with a violent or abusive relationship? Are you a victim of rape or sexual assult? Call [facility] ([place]) 24 hour Crisis Hotline: 320.539.3544 or 575-309-3776. MANUAL Your Guide to a Healthy manual is now on-line. Visit [facility]org/HealthyPregnan Sreedhar to download your free copy documented in this encounter [facility] 09-09-2024 Progress note Formatting of t his note might be different from the original. RR_ doing well. Taking PNV declines asa, no h/o HTN. US done today. XY. f/u in 4 weeks or prn Bernadette Harry MD [facility] 09-09-2024 Miscellaneous Notes RR_ doing well. Taking PNV declines asa, no h/o HTN. US done today. XY. f/u in 4 weeks or prn Bernadette Harry MD documented in this encounter [facility] 09-09-2024 Instructions Jyoti Yanez MA - 09/09/2024 10:18 AM EDT SEQUENTIAL SCREENINGS The [facility] offers sequential screenings for women who are interested in screenings for chromosomal abnormalities and certain defects during a . The sequential screen combines ultrasound and blood tests to determine the risk of chromosomal abnormalities, including Down's Syndrome (Trisomy 21) and Trisomy 18, as well as open neural tube defects including spina bifida. Ultrasound examination is performed between 11 weeks and 13 weeks gestational age. Blood tests are drawn after the ultrasound and again later in the between 15 and 21 weeks gestational age. Please let your physician know if you are interested in this testing. It will require an appointment with our phone technician. This is not an ultrasound performed by a physician in our office during a routine visit. SIGNS AND SYMPTOMS OF LABOR 1. Contractions every 10 minutes or more often 2. Clear, pink, or brownish fluid (water) leaking from vagina 3. Feeling that baby is pushing down, pressure 4. Low, dull backache 5. Cramps that feel like a period 6. Cramps with or without diarrhea If you notice any of the above symptoms, contact our office at [phone] and ask to speak with a nurse. After hours, you can call [employer] [facility] at [phone] OR call [facility] at [phone] and ask to have the doctor aircraft quality control inspector paged. If you consider this an emergency, dial or go to your nearest emergency department. NEED HELP? Are you dealing with a violent or abusive relationship? Are you a victim of rape or sexual assult? Call [facility] ([place]) 24 hour Crisis Hotline: 970.447.7992 or 344-280-5692. MANUAL Your Guide to a Healthy manual is now on-line. Visit [facility].org/HealthyPregnan fadiMaritoamee to download your free copy documented in this encounter [facility] 08-11-2024 Progress note Formatting of t his note might be different from the original. EH - S: Sweta is a 28 year old female who presents at 16w4d for a routine visit. Feeling movement. Denies headache, visual changes, chest pain, shortness of breath, vaginal bleeding, leakage of fluid, or dysuria. Feeling well, no complaints. O: See flow sheet Gen: No apparent distress Abd: Gravid, nontender ASSESSMENT/PLAN: 1. Encounter for supervision of high risk in second trimester, antepartum ([facility]) - ICD9: V23.9, ICD10: O09.92 (primary diagnosis) - Continue PNV, declines LDA - Bleeding has stopped for the last week - LEONA discrepancy - will await formal report 2. 16 weeks gestation of ([facility]) - ICD9: V22.2, ICD10: Z3A.16 - Early anatomy today, report pending - Anatomy ultrasound next visit 3. History of macrosomia in in prior , currently ([facility]) - ICD9: V23.49, ICD10: O09.299 4. Obesity affecting in second trimester, unspecified obesity type ([facility]) - ICD9: 649.13, ICD10: O99.212 - Pre BMI 32 5. Anxiety during ([facility]) - ICD9: 648.43, 300.00, ICD10: O99.340, F41.9 - Improved PTL precautions reviewed. RTO in 4 weeks or sooner as needed. Nirmala Friedman APRN.ADJUSTER LEADER [facility] 08-11-2024 Miscellaneous Notes EH - S: Sweta is a 28 year old female who presents at 16w4d for a routine visit. Feeling movement. Denies headache, visual changes, chest pain, shortness of breath, vaginal bleeding, leakage of fluid, or dysuria. Feeling well, no complaints. O: See flow sheet Gen: No apparent distress Abd: Gravid, nontender ASSESSMENT/PLAN: 1. Encounter for supervision of high risk in second trimester, antepartum ([facility]) - ICD9: V23.9, ICD10: O09.92 (primary diagnosis) - Continue PNV, declines LDA - Bleeding has stopped for the last week - LEONA discrepancy - will await formal report 2. 16 weeks gestation of ([facility]) - ICD9: V22.2, ICD10: Z3A.16 - Early anatomy today, report pending - Anatomy ultrasound next visit 3. History of macrosomia in infant in prior , currently ([facility]) - ICD9: V23.49, ICD10: O09.299 4. Obesity affecting in second trimester, unspecified obesity type ([facility]) - ICD9: 649.13, ICD10: O99.212 - Pre BMI 32 5. Anxiety during ([facility]) - ICD9: 648.43, 300.00, ICD10: O99.340, F41.9 - Improved PTL precautions reviewed. RTO in 4 weeks or sooner as needed. Nirmala Friedman APRN.ADJUSTER LEADER documented in this encounter [facility] 08-11-2024 Instructions Anita Benton MA - 08/11/2024 8:36 AM EDT SEQUENTIAL SCREENINGS The [facility] offers sequential screenings for women who are interested in screenings for chromosomal abnormalities and certain defects during a . The sequential screen combines ultrasound and blood tests to determine the risk of chromosomal abnormalities, including Down's Syndrome (Trisomy 21) and Trisomy 18, as well as open neural tube defects including spina bifida. Ultrasound examination is performed between 11 weeks and 13 weeks gestational age. Blood tests are drawn after the ultrasound and again later in the between 15 and 21 weeks gestational age. Please let your physician know if you are interested in this testing. It will require an appointment with our phone technician. This is not an ultrasound performed by a physician in our office during a routine visit. SIGNS AND SYMPTOMS OF LABOR 1. Contractions every 10 minutes or more often 2. Clear, pink, or brownish fluid (water) leaking from vagina 3. Feeling that baby is pushing down, pressure 4. Low, dull backache 5. Cramps that feel like a period 6. Cramps with or without diarrhea If you notice any of the above symptoms, contact our office at [phone] and ask to speak with a nurse. After hours, you can call [facility] at [phone] OR call [facility] at [phone] and ask to have the doctor aircraft quality control inspector paged. If you consider this an emergency, dial 91-3 or go to your nearest emergency department. NEED HELP? Are you dealing with a violent or abusive relationship? Are you a victim of rape or sexual assult? Call [facility] ([place]) 24 hour Crisis Hotline: 500.445.4942 or 325-168-6138. MANUAL Your Guide to a Healthy manual is now on-line. Visit [facility].org/HealthyPregnan Sreedhar to download your free copy documented in this encounter [facility] 08-10-2024 Note HNO ID: [id number] Author: LIANA MANNING RN Service: ? Author Type: Registered Nurse Type: Progress Notes Filed: 08/10/2024 08:58 Note Text: [facility] [place]. To to review. Liana Manning RN [facility] 08-10-2024 History of Present illness Narrative Received medical records from [facility] [place]. To to review. Liana Manning RN documented in this encounter [facility] 07-29-2024 Instructions Nirmala Friedman APRN.ADJUSTER LEADER - 07/29/2024 1:30 PM EDT Images from the original note were not included. Please select the following link to access the [facility] Your Guide to a Healthy . www.[email or web address]/healthypregnancyguide Psychotherapy Services at [facility] Call Behavioral Health Access Line at [phone] to schedule Individual psychotherapy In-person or virtual Wait time for first evaluation may be 12 or more weeks. Wait list spots may be available. Due to the high volume of patients this option is recommended if you are looking for short term acute symptom coping strategies. 5-102-6-DNTQ2AHJN - [place] Maternal Mental Health Hotline If you are in suicidal crisis, please call or text 9-961-190-TALK ( ) or visit the National Suicide Prevention Lifeline website. mchb.pinon health centera.gov If you are in crisis, call 911 or go to your nearest Emergency Department Here are some links for wonderful Providers here in the community and surrounding areas. Do not hesitate to contact their offices, many are offering virtual visits during this time. Psychotherapy Services outside of [facility] Support International Online Provider Directory https://GridCure.Intellicyt/ - can assist in finding providers in your area that might be more extensive then the list below. [facility] - [place], [place] [address] [place] [address] [place] [address] [place] [address] [facility] [address] [place] [address] [facility] [address] [place], [place] [id number] Kenton Simpson MD [address] [place], [place] [phone] [facility] [address] [facility], [address] [place] [address] [facility] Services [address] [place] [address] [facility] Counseling Services [place] / [place] [phone]/ [phone] Cristina Loera [address] [facility] [phone] [facility] [place] / [place] [phone] Behavioral health services of [facility] [address] [place] [address]/ krypt[place] and [place] [phone] Kourtney Rivera, HISTORIAN RESEARCH ASSISTANT, CLC [facility] Workshops, telehealth and at home visits. [phone] [facility] counseling keams [place]yon 20 locations [place], [place], [place], [place], [place], [place], [place], [facility], [place], [place], [place], [place], [place], [place], [facility], [place], [place] ,[facility], [place], [place],[facility], [facility], [place], [facility], westla mad[place], Max www.Azuro [phone] Psychotherapy resources outside of [facility] are listed below [facility] Mobile-XL Psychotherapy Web: https://www.Predictive Biosciences/ Support International Online Provider Directory https://sigmacare/ [facility] https://StrongSteam/ Partners for Behavioral Health and Wellness Web: https://Abakan/ Selftrade for Effective Living Web: https://www.Tangoliving.Intellicyt/ [facility]ance Web: https://Branders.com.Intellicyt/location/[facility]/[place]/ [facility] Web: https://www.signaturehealthinc.org / The Centers Web: https://Reffpedia.org/ Recovery Resources Mental health and substance abuse help Web: https://www.AIRVENDs.org & RESOURCES Support International Direct peer support and connection to professional resources Non-Emergency Helpline Phone: / Text: [phone] Web: https://www..net/ Online Provider Directory: https://GridCure.Intellicyt/ Online Support Meetings: https://www..net/get-hel p/uys-qpxnnr-hrxcwfr-meetings/ JOE Baby and Refuse Laborer Services Web: https://LeTV/ MotherKisskissbankbank Technologies Expert information on medication use during and Text: [phone] Web: https://Smallknot/ NATIONAL REGISTRY FOR PSYCHIATRIC MEDICATIONS Currently studying the safety of antidepressants, ADHD medications and atypical antipsychotics taken during TO PARTICIPATE CALL TOLL-FREE: Web: https://women.org/res earch/pregnancyregistry/ Support Groups: [facility]- Follow on facebook Baby Bistro support group led by [facility] department Resilient Mamas - Support Group [facility].org The POEM support group [phone] Www.poAlpineReplayonline.org Follow on facebook - POEM michaels chapter Online support meetings PSI https://www..net/get-hel p/sto-wusnau-gleewsy-meetings/ [facility] mommy and me virtual support group 11:30-1pm Support for mothers and new babies and toddlers [facility] education: Childbirth @cc.org or call [phone] CRISIS: CRISIS HOTLINE [phone], 911 or go to the nearest [facility] [phone] / [facility] [phone] https://www.[facility] vernon hospital[facility].org Crisis text line text the word HOME to [address]706 [facility] [address] [place] [address] [facility] [address] www.Everbridge Haritha La clinical counseling [address] [facility] [address] [place] [address] www.TheStreet.Intellicyt [phone] Holding space psychotherapy Tasneem SEGOVIA BARREL LEVELER-S [address] [facility] www.Inuk Networks [phone]/ [place] [phone] They all offer virtual. All work with trauma Support groups Online support meetings PSI https://www..net/get-hel p/qua-rbbofr-azyltcv-meetings/ Here are the support groups they offer: Support of parents of 1 to 4 years old children POEM ( Outreach and Encouragement for Moms) offers free support for mothers experiencing depression, anxiety, and other mood and anxiety disorders. Masks are recommended but not required. No pre-registration required. Babies in arms welcome. meetings now take place on the and Friday of each month Location: [facility] [address] [place] [address] Room 122 (library room) 7-8:00 p.m. When you enter the [facility] parking lot off of [address] the entrance door closest to our meeting room is on the front of the building toward the right. For those who are more comfortable with a virtual platform, POEM offers online support group options several days of the week. To register for an online group or to find out more about POEM, website at: https://mhaohio.org/get-help/mater kzl-mzcqoj-dgipjp/poem-services/ offer a confidential helpline: private Facebook group is called JUAN Alcala Here are the groups they offer: Traumatic childbirth resources: Http://pattch.org/ https://www.jamesKonTEM/ Name Location (s) Phone # (s) Services Website [employer] [facility] [address] [facility], [place], [place] - [phone]; [address] [phone] In-Person GROUPS INDIVIDUAL THERAPY MATERNAL-INFANT MENTAL HEALTH MEDICATION MANAGEMENT PLAY AND ART THERAPY TELETHERAPY https://www.Predictive Biosciences/se rvices/ [facility] Yarely MICHAELS? [address] [place], [place] [address] ? [address] [place], [place] [address] ? [place] [address] [place] [phone]? Grief Support Groups Individual Grief Counseling Spiritual Care Memorial Events https://[place].[facility] e.org/grief-services [facility] [address] [place], [place] [address]; ; Email: guido@Usabilla Women's Mental Health; Couples Counseling; Trauma (EMDR); Stress Management; Mood and Anxiety Related Disorders- and much more https://www.for; to (do) Centers/ LifeStance Numerous as they have contract providers: access website to find specific providers near you Counseling including CBT and EMDR as well as many more modalities; Medication Management; Telehealth and In-Person https://Orange Health Solutions/ My Dentist Behavioral Health and Wellness [address] [place], [place] [address]; [phone] Personal, Family and Group Therapy; Psychological Testing and Diagnosis; Medication Management; Life and Career Coaching; Psychoanalysis; Literacy Testing; Yoga and Meditation https://Abakan/ Fit Mind [place] [address] [facility] [address], [place] [address] [address] ; [address] [place] [address], [address] [place] [address]; Office # for both sites: Individual and Couples Counseling https://www.Dustcloud.Intellicyt/p aymentinsurance.html OCD & Anxiety [facility] [address] [facility], [address], [place] [address]; Specialize in Cognitive-Behavioral Therapy (CBT) for the treatment of anxiety disorders across the lifespan. TELEHEALTH ONLY. https://ocdandanxietycentTHE NOCKLIST/faqs [facility] [address] [place] [address] [place], [address] [place] [address] [facility] [place] [address] [place] [address] [place], [address] [place] [address] [place], [address], [id number] [place] [address] [facility] [place], [address] [place] [address] [place], [place], [address] Transportation Services To minimize patient barriers, [facility] provides transportation services to patients who qualify. If you are unable to get to your appointment at any of our facilities, please let us know. Need help now? Stop by one of our walk-in clinics to establish behavioral health care. Counseling Indvidual, Group, Couples and Family Counseling and EMDR. Medication Management Case Management benefits applications housing assistance Substance abuse treatment Medication assisted treatment https://www.[facility].org /mental-health/ [facility] OFFICE AT [facility] [address] [place] [address] [facility] OFFICE [address] [place] [address] [facility] OFFICE [address] [place] [address] TOW OFFICE (at [facility]) [address] [place] [address] [facility] SYRINGE EXCHANGE PROGRAM & HIV SCREENING [address] [place] [address] VAN SYRINGE EXCHANGE PROGRAM [address] [place] [address] Behavioral Health Urgent Care: [facility] Sites Counseling Indvidual and Group Medication Management Case Management benefits applications housing assistance Substance abuse treatment Medication assisted treatment Employment Services/ Job Training https://theOpenbravoersGoWario.org/ Recovery Resources [address] [place], [place] [address]: P: [phone] [address] [facility], [facility] [place], [place] [address] P: [phone] Our services include: Addiction Mental Health Treatment Assessment Psychiatry Medical Care Employment Housing Drug and Alcohol Prevention HIV/AIDS Prevention https://www.recres.org/ [facility] [place] [address] [place] [address] [place] [address] [address] [place], [place] [address] [place] [address] [place] [address] [place] [address] [facility] [address] [place] [address] [place] [address] [place] [address] TMS Therapy/ Counseling Psychocological Testing for ADHD Medication Management In-Person/ Telemedicine https://www.Fitness Interactive Experience/patie nts-depression Memory & Psychological services [address], [place] [address] Neuropsychological Testing For ADHD https://www.memoryandpsych.com/ [facility] Main Office [facility] [place], [place] [address] [address] [id number] [address] [phone] Providing kgps-wy-rrbv and telehealth services. Adult Case Management Community Education and Prevention Employment Outpatient Treatment - Counseling & Psychotherapy Psychiatric Services http://www.[facility].org/ [facility] [place] [address] [place] [address] [facility] [address] [place] [address] Virtual Appointments! Now offering safe and convenient virtual client appointments to anyone in [place]! Individual Therapy Couples/Relationship Therapy Trauma/EMDR Therapy Art Therapy Play Therapy Brush Worker Support: Parenting Skills, Parent Child Interaction Therapy, Parent Interaction Therapy Meditation Dietitian/Milk Wagon Driver Services Group Therapy Yoga https://www.ebbandflowcounseling.c katiana/ Edilma Prasad [phone] Private Practice: Telehealth Only Specializes in EMDR for Trauma None documented in this encounter [facility] 07-29-2024 Note HNO ID: [id number] Author: NIRMALA FRIEDMAN APRN.CNP Service: ? Author Type: Nurse Practitioner Type: Progress Notes Filed: 07/29/2024 14:27 Note Text: Parking Control Officer offered: Patient declines. INITIAL OB ASSESSMENT HPI: Sweta is a 28 year old White here to establish Obstetrical Care. Patient's last menstrual period was 04/17/2024 (approximate). from OB Dating Form. was planned Complaints: (!) Vaginal bleeding, resolved last week. Bleeding then started back up on Friday, the flow is light to spotting and only is noticed when she wipes or goes to the restroom. OB History Gravida4 Para1 Term1 Preterm0 AB2 Living1 SAB1 IAB1 Ectopic0 Multiple0 Live Births1 # 1 - Date: 02/2015, Sex: None, Weight: None, GA: None, Type: None, Apgar1: None, Apgar5: None, Living: None, Comments: None # 2 - Date: 04/09/22, Sex: Male, Weight: 3.884 kg (8 lb 9 oz), GA: 39w4d, Type: Vaginal, Spontaneous, Apgar1: None, Apgar5: None, Living: Living, Comments: ELECTIVE INDUCTION,2nd degree perineal lac # 3 - Date: 01/27/24, Sex: None, Weight: None, GA: 12w0d, Type: MISSED AB, Apgar1: None, Apgar5: None, Living: None, Comments: baby was measuring 8 weeks at time of DANDC # 4 - Date: None, Sex: None, Weight: None, GA: None, Type: None, Apgar1: None, Apgar5: None, Living: None, Comments: None Previous history: Prior : No History of 4th degree laceration: No History of shoulder dystocia: No History of Hypertensive disorders including pre-eclampsia or gestational hypertension: No History of gestational diabetes: No Patient's Risk Screening for delivery: Have you had a prior roman between 20w and 36w6d? No How many pregnancies have you had before? 3 Did you have a previous baby with a GBS Infection? No Please select all that apply for any prior : Baby large for gestational age MEDICAL/PSYCHOSOCIAL HISTORY: History of hemorrhage or bleeding concerns: No Thyroid Disease: No History of chronic hypertension: No History of pre-existing diabetes: No No results found for: ABORHD BMI 33.05 kg/(m2) Last Pap: 07/31/2023 History of abnormal pap: No Prior treatment for cervical dysplasia: none. Last HPV: History of STDs: NNo Partner History of STDs: None Did you have a partner with Herpes? No Tobacco use: No E-Cigarette/Vaping Use: No Caffeine use: No Drug use: No Alcohol use: No Multivitamin with Folic acid: Yes Would refuse blood transfusion if medically necessary: No Social Needs: How often does this describe you? I don't have enough money to pay my bills: Never Within the past 12 months, have you worried that your food would run out before you had money to buy more? Never In the past 12 months, has lack of reliable transportation kept you from going to medical appointments or work, or from getting things needed for daily living? Never In the past 12 months, have you had any concerns about having a place to live, or about the condition or quality of your housing? Never Would you like more information on any of the following (please check all that apply)? Not interested Social History: Do you have any history of depression, anxiety, PTSD, or other mood problems? No Do you have a history of abuse or trauma that may impact your experience? No Are you currently employed? Yes Depression/Anxiety Screening: denies symptoms of depression. OB Depression and Anxiety Screening- This Encounter (since 07/28/2024) Over the past 2 weeks have you felt down, depressed, or hopeless? Negative Over the past two weeks, have you felt little interest or pleasure in doing things?? Negative Feeling nervous, anxious or on edge 2-More than half the days Not being able to stop or control worrying 2-More than half the days Anxiety Pre-Screening Total (If >/= 3 additional questions will be reviewed) 4 Worrying too much about different things 1-Several days Trouble relaxing 0-Not al all Being so restless that it is hard to sit still 0-Not al all Becoming easily annoyed or irritable 0-Not al all Feeling afraid, as if something awful might happen 0-Not al all Anxiety (ALE) Full Screening Total 5 Genetic Screening: Partner present: No Patient verbalized knowledge of partner family health history: Yes Do you or your partner have any personal or family history of defects not previously discussed: No Do you have history of a complicated by anomaly, genetic condition, or demise: No Preeclampsia Risk Screening: Screening for prevention of preeclampsia: High risk factors: None Moderate risk ractors: Obesity (body mass index greater than 30) and Family history of pre-eclampsia (mother or sister) Mother with Pre-E OB Risk Screening: Completed, no positive findings documented. Marital Status: Partner: Name: Erik King Age: 29 Occupa (more content not included)... [facility] 07-29-2024 History of Present illness Narrative Parking Control Officer offered: Patient declines. INITIAL OB ASSESSMENT HPI: Sweta is a 28 year old White here to establish Obstetrical Care. Patient's last menstrual period was 04/17/2024 (approximate). from OB Dating Form. was planned Complaints: (!) Vaginal bleeding, resolved last week. Bleeding then started back up on Friday, the flow is light to spotting and only is noticed when she wipes or goes to the restroom. OB History Gravida4 Para1 Term1 Preterm0 AB2 Living1 SAB1 IAB1 Ectopic0 Multiple0 Live Births1 # 1 - Date: 02/2015, Sex: None, Weight: None, GA: None, Type: None, Apgar1: None, Apgar5: None, Living: None, Comments: None # 2 - Date: 04/09/22, Sex: Male, Weight: 3.884 kg (8 lb 9 oz), GA: 39w4d, Type: Vaginal, Spontaneous, Apgar1: None, Apgar5: None, Living: Living, Comments: ELECTIVE INDUCTION,2nd degree perineal lac # 3 - Date: 01/27/24, Sex: None, Weight: None, GA: 12w0d, Type: MISSED AB, Apgar1: None, Apgar5: None, Living: None, Comments: baby was measuring 8 weeks at time of D&C # 4 - Date: None, Sex: None, Weight: None, GA: None, Type: None, Apgar1: None, Apgar5: None, Living: None, Comments: None Previous history: Prior : No History of 4th degree laceration: No History of shoulder dystocia: No History of Hypertensive disorders including pre-eclampsia or gestational hypertension: No History of gestational diabetes: No Patient's Risk Screening for delivery: Have you had a prior roman between 20w and 36w6d? No How many pregnancies have you had before? 3 Did you have a previous baby with a GBS Infection? No Please select all that apply for any prior : Baby large for gestational age MEDICAL/PSYCHOSOCIAL HISTORY: History of hemorrhage or bleeding concerns: No Thyroid Disease: No History of chronic hypertension: No History of pre-existing diabetes: No No results found for: ABORHD BMI 33.05 kg/(m^2) Last Pap: 07/31/2023 History of abnormal pap: No Prior treatment for cervical dysplasia: none. Last HPV: History of STDs: NNo Partner History of STDs: None Did you have a partner with Herpes? No Tobacco use: No E-Cigarette/Vaping Use: No Caffeine use: No Drug use: No Alcohol use: No Multivitamin with Folic acid: Yes Would refuse blood transfusion if medically necessary: No Social Needs: How often does this describe you? I don't have enough money to pay my bills: Never Within the past 12 months, have you worried that your food would run out before you had money to buy more? Never In the past 12 months, has lack of reliable transportation kept you from going to medical appointments or work, or from getting things needed for daily living? Never In the past 12 months, have you had any concerns about having a place to live, or about the condition or quality of your housing? Never Would you like more information on any of the following (please check all that apply)? Not interested Social History: Do you have any history of depression, anxiety, PTSD, or other mood problems? No Do you have a history of abuse or trauma that may impact your experience? No Are you currently employed? Yes Depression/Anxiety Screening: denies symptoms of depression. OB Depression and Anxiety Screening- This Encounter (since 07/28/2024) Over the past 2 weeks have you felt down, depressed, or hopeless? Negative Over the past two weeks, have you felt little interest or pleasure in doing things? Negative Feeling nervous, anxious or on edge 2-More than half the days Not being able to stop or control worrying 2-More than half the days Anxiety Pre-Screening Total (If >/= 3 additional questions will be reviewed) 4 Worrying too much about different things 1-Several days Trouble relaxing 0-Not al all Being so restless that it is hard to sit still 0-Not al all Becoming easily annoyed or irritable 0-Not al all Feeling afraid, as if something awful might happen 0-Not al all Anxiety (ALE) Full Screening Total 5 Genetic Screening: Partner present: No Patient verbalized knowledge of partner family health history: Yes Do you or your partner have any personal or family history of defects not previously discussed: No Do you have history of a complicated by anomaly, genetic condition, or demise: No Preeclampsia Risk Screening: Screening for prevention of preeclampsia: High risk factors: None Moderate risk ractors: Obesity (body mass index greater than 30) and Family history of pre-eclampsia (mother or sister) Mother with Pre-E OB Risk Screening: Completed, no positive findings documented. 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 PAST SURGICAL HISTORY Procedure Laterality Date D&C, DIAG AND/OR THERAPEUTIC 2014 and 2023 Current Outpatient Medications Medication Sig Dispense Refill VIT [id number] ORAL Take by mouth. No current facility-administered medications for this visit. Allergies As of Date: 07/29/2024 (No Known Allergies) Does patient have penicillin allergy: No REVIEW OF SYSTEMS: GENERAL: Negative for: Fever or Chills HEENT: Negative for: Headache, Impaired Vision, Ringing in Ears, Nosebleeds NECK: Negative for: Swelling, Pain, Stiffness RESPIRATORY: Negative for: Cough, Shortness of breath, Wheezing GASTROINTESTINAL: Negative for: Heartburn, Diarrhea, Blood in stool, Vomiting + constipation MUSCULOSKELETAL: Negative for: Muscle or joint pain, stiffness, Joint swelling NEUROLOGIC/PSYCHIATRIC: Negative for: Weakness, Paralysis, Numbness, Tingling, Tremor, Depression, Memory loss + anxiety SKIN: Negative for: Rash, Itching GENITOURINARY: Negative for: vaginal itching, vaginal discharge, hematuria or dysuria SENSITIVE EXAM: The sensitive examination was discussed with the Patient or Patient's Authorized Gold Stamper. As applicable, any other physician, advance practice provider, medical student, or other health professional student that will be observing or involved in the sensitive examination for educational or training purposes was discussed with the Patient or Authorized Gold Stamper. The Patient or Authorized Gold Stamper has agreed to proceed with the sensitive examination. (Sensitive examination includes inspection and/or palpation of the breasts, pelvis, prostate and anorectal regions). PHYSICAL EXAM: BP 126/80 Ht 5' 9.496 (1.77m) Wt 227 lb (103.0kg) LMP 04/17/2024 BMI 33.05 kg/(m^2). GENERAL: pleasant in no apparent distress DERMATOLOGY: Normal, without lesions, non-icteric, and non-hirsute NECK: Supple, full range of motion, no adenopathy, and thyroid normal CHEST: Normal inspiratory effort BREAST: soft, non-tender, symmetric, no dominant mass, normal nipple-areolar complex, no lymphadenopathy, and no nipple discharge ABDOMEN: soft, non-tender, and no masses NEURO: alert and oriented x3,exam grossly non-focal PELVIS: External genitalia normal without lesions. Perineal body intact. No vaginal or cervical lesions. Cervix closed. Uterus 12+ week size. No adnexal masses or tenderness. + dark brown blood/discharge Clinical Pelvimetry: Pelvimetry clinically assessed as adequate Limited OB ultrasound exam: cardiac activity confirmed SBIRT Sweta King was given the 4P's screening tool. Sweta answered No to all the questions, the result is determined to be negative. ASSESSMENT: 28 year old at 14w5d wks gestational age PLAN: 1) Patient oriented to practice. Patient given new OB orientation folder. Discussed nutrition, folic acid supplementation, dietary guidelines, exercise, smoking, alcohol, caffeine, and drug use. Discussed gestational weight gain guidelines. Discussed routine OB labs including STD/HIV. Discussed how to access Your guide to a health and the Compensation Associate. Discussed hemoglobin electrophoresis. Patient: Declines Patient has penicillin allergy, plan for allergy testing. Reviewed midwifery and pattern generator operator services that are available. 2) Screening: Hemoglobin A1C: ordered Baby Aspirin: The patient has been counseled about the potential benefits of low dose aspirin in and our recommendation that this be offered to all patients, regardless of whether they meet the high risk criteria specified above. She is planning to hold off on this time due to vaginal bleeding. Aneuploidy Screening: Discussed aneuploidy screening, nuchal translucency/first trimester early anatomy ultrasound and NIPT. The risks/benefits and limitations of NIPT/aneuploidy screening were reviewed including the potential for false negative and false positive results. The availability of genetic counseling was reviewed. Information on aneuploidy screening was provided. The patient declines screening Myriad Carrier Screening: Discussed myriad carrier screening. We discussed the availability of professional-society guided carrier screening and reviewed the conditions screened and limitations of screening. The availability of genetic counseling was reviewed. Information on carrier screening was provided. The patient Declines 3) Patient offered option of Virtual Visits. Patient unsure. May consider in future. ACTIVE PROBLEM LIST Encounter for Supervision of High Risk in Second Trimester, Antepartum - 07/29/2024 Comment: Care Checklist Vaccines: [] Flu vaccine [] declined [] RSV vaccine 32 0/7 - 36 6/7 (Jan - Jun) [] declined [] COVID vaccine [] declined [] TDaP 27-36 [] declined First trimester: [x] Dating US [x] 1st tri labs [x] Pap smear [] Carrier screening [x] declined [] NIPT screening [x] declined [] First trimester anatomy scan [] declined [] universal ASA ordered (start 12w-16w) [x] declined [] M Power Consult [] not indicated [] declined Second trimester: [] Anatomy scan [] Mode of Delivery - [] Feeding - [] Pump ordered [] Diabetes screen [] CBC, RPR [] Behavioral Health Screening Third trimester (28-30 weeks): [] Consent [] Contraception [] Net Front End Developer [] TeamBirth handout Third trimester (36-40 weeks): [] GBS [] Presentation - [] Scheduled [] yes - Hibiclens, pre-op instructions, CBC, T&S ordered [] no [] H&P [] Preferences worksheet [] Scanned in EMR With Care Elsewhere in Second Trimester - 07/29/2024 Comment: Transferring from [facility]. See scanned docs. Nirmala Friedman APRN.ADJUSTER LEADER Vaginal Bleeding Affecting Early - 07/29/2024 Comment: July 29, 2024 Decreasing. Now spotting. Bleeding precautions reviewed. Nirmala Friedman APRN.ADJUSTER LEADER Obesity Affecting in Second Trimester - 07/29/2024 Comment: Pre BMI 32 History of Macrosomia in in Prior , Currently - 07/29/2024 Comment: 8lb9oz in 2021 History of Miscarriage - 07/29/20242023 Anxiety During - 07/29/2024 Comment: July 29, 2024 Related to bleeding during and history of miscarriage. Mental health resources provided. Does not have counselor at this time. Nirmala Friedman APRN.CNP Constipation During in Second Trimester - 07/29/2024 Comment: July 29, 2024 Discussed stool softeners. Safe medication list provided. Nirmala Friedman APRN.CNP Follow up in 2 weeks or sooner prn. Plan for early anatomy ultrasound. Nirmala Friedman APRN.CNP documented in this encounter [facility] 07-18-2024 Emergency department Note Discharge instructions discussed with patient, no questions at this time. Patient and belongings ambulated off of unit. [facility] 07-18-2024 Emergency department Note Discharge instructions discussed with patient, no questions at this time. Patient and belongings ambulated off of unit. Emergency Department Report [facility] EMERGENCY DEPARTMENT Service Date:.07/18/24 PCP: No primary care provider on file. Chief Complaint: Chief Complaint Patient presents with Spotting Reports 13 weeks and woke up with 1 episode of blood gushing out. Pt states 4th with 1 living child. Pt denies pain at this time. HPI Sweta King is a 28 y.o. female presents to the ED with chief complaint of vaginal bleeding. Patient states she was 13 weeks from her last menstrual. She was not had an ultrasound at this time. She states she was had some vaginal bleeding this morning. She denies abdominal pain or cramping. Patient was a G4 AB2 P1 pelvic trauma. She denies any abdominal pain or flank pain. She denies any chills or fever. She denies any cough. Her blood type is O positive from previous blood being testing. She denies any other complaints of pain or problem Review of Systems: Review of Systems Seven systems have been reviewed and are negative unless listed specifically as positive in the HPI Past Medical History: No past medical history on file. Past Surgical History: Past Surgical History: Procedure Laterality Date TREATMENT W/ D&C N/A 01/27/2024 Laterality: N/A; Surgeon: Kenny Newman MD; Location: [facility] OB OR DILATION AND CURETTAGE 2014 Allergies: No Known Allergies Medications: Patient's Medications New Prescriptions No medications on file Previous Medications HYDROCODONE-ACETAMINOPHEN 5-325 MG TABLET Take 1 tablet by mouth every 4 hours as needed for Moderate Pain for up to 7 days. IBUPROFEN 800 MG TABLET Take 1 tablet by mouth every 8 hours as needed for Mild Pain or Moderate Pain. Modified Medications No medications on file Discontinued Medications No medications on file Family History: History reviewed. No pertinent family history. Social History: Social History Socioeconomic History Marital status: Spouse name: Not on file Number of children: Not on file Years of education: Not on file Highest education level: Not on file Occupational History Not on file Tobacco Use Smoking status: Never Smokeless tobacco: Never Vaping Use Vaping status: Never Used Substance and Sexual Activity Alcohol use: Not Currently Drug use: Never Sexual activity: Not on file Other Topics Concern Not on file Social History Narrative Not on file Social Drivers of Health Financial Resource Strain: Not on file Food Insecurity: Not on file Transportation Needs: Not on file Physical Activity: Not on file Stress: Not on file Social Connections: Not on file Personal Safety: Not on file Housing Stability: Not on file Physical Exam: Physical Exam General: Well-developed well-nourished nontoxic HENT: Head is atraumatic. Face is symmetric. Mucous membranes are hydrated Eyes: Pupils are equal Skin: Warm and dry Abdomen: Soft. No guarding Or rebound. Respiratory: Clear in all benoit. No rhonchi no wheezing Heart: Heart tones are regular. Capillary refill is brisk and less than 2 seconds Neurologic: Awake, alert, oriented, answering questions appropriately. Moving all extremities well Lymphatic: No anterior-posterior cervical lymphadenopathy Musculoskeletal: No trauma no fracture no deformity Psychiatric: Cooperative with the examiner Vital Signs During ED Visit Patient Vitals for the past 24 hrs: BP Temp Temp src Pulse Resp SpO2 Height 07/18/24 0613 128/78 -- -- 98 16 98 % -- 07/18/24 0451 -- -- -- -- -- -- 1.778 m (5' 10) 07/18/24 0400 143/71 -- -- 110 -- 99 % -- 07/18/24 0359 (!) 170/93 98.1 F (36.7 C) Oral 110 17 98 % -- Orders/Results: No results found for this visit on 07/18/24. Radiographic Imaging US OB TRANSVAGINAL/CERVICAL LENGTH Final Result IMPRESSION: 1. Single live intrauterine gestation at approximately 13 weeks 6 days with a heart rate of 150 bpm. 2. Fluid within the endocervical canal. Procedures: Procedures Moderate Sedation Procedure: No ED Summary/MDM Patient had a quantitative HCG which he was 68,821. Ultrasound was performed showing single live intrauterine gestation of approximately 13 weeks and 6 days heart rate 150. At this time she was resting comfortably had no further bleeding she will follow up with her OBGYN Clinical Impression: 1. Vaginal bleeding before 22 weeks gestation No follow-ups on file. New Prescriptions No medications on file Discontinued Medications No medications on file An After Visit Summary was printed and given to the patient with above information. . Kishore Hackett MD 07/18/24 0632 Bed: E011 Expected date: Expected time: Means of arrival: Comments: Patient on list for US, radiology reporting could be 1-2 hrs before arrival. documented in this encounter [facility] 07-18-2024 Physician Emergency department Note Emergency Department Report [facility] EMERGENCY DEPARTMENT Service Date:.07/18/24 PCP: No primary care provider on file. Chief Complaint: Chief Complaint Patient presents with Spotting Reports 13 weeks and woke up with 1 episode of blood gushing out. Pt states 4th with 1 living child. Pt denies pain at this time. HPI Sweta King is a 28 y.o. female presents to the ED with chief complaint of vaginal bleeding. Patient states she was 13 weeks from her last menstrual. She was not had an ultrasound at this time. She states she was had some vaginal bleeding this morning. She denies abdominal pain or cramping. Patient was a G4 AB2 P1 pelvic trauma. She denies any abdominal pain or flank pain. She denies any chills or fever. She denies any cough. Her blood type is O positive from previous blood being testing. She denies any other complaints of pain or problem Review of Systems: Review of Systems Seven systems have been reviewed and are negative unless listed specifically as positive in the HPI Past Medical History: No past medical history on file. Past Surgical History: Past Surgical History: Procedure Laterality Date TREATMENT W/ D&C N/A 01/27/2024 Laterality: N/A; Surgeon: Kenny Newman MD; Location: [facility] OB OR DILATION AND CURETTAGE 2014 Allergies: No Known Allergies Medications: Patient's Medications New Prescriptions No medications on file Previous Medications HYDROCODONE-ACETAMINOPHEN 5-325 MG TABLET Take 1 tablet by mouth every 4 hours as needed for Moderate Pain for up to 7 days. IBUPROFEN 800 MG TABLET Take 1 tablet by mouth every 8 hours as needed for Mild Pain or Moderate Pain. Modified Medications No medications on file Discontinued Medications No medications on file Family History: History reviewed. No pertinent family history. Social History: Social History Socioeconomic History Marital status: Spouse name: Not on file Number of children: Not on file Years of education: Not on file Highest education level: Not on file Occupational History Not on file Tobacco Use Smoking status: Never Smokeless tobacco: Never Vaping Use Vaping status: Never Used Substance and Sexual Activity Alcohol use: Not Currently Drug use: Never Sexual activity: Not on file Other Topics Concern Not on file Social History Narrative Not on file Social Drivers of Health Financial Resource Strain: Not on file Food Insecurity: Not on file Transportation Needs: Not on file Physical Activity: Not on file Stress: Not on file Social Connections: Not on file Personal Safety: Not on file Housing Stability: Not on file Physical Exam: Physical Exam General: Well-developed well-nourished nontoxic HENT: Head is atraumatic. Face is symmetric. Mucous membranes are hydrated Eyes: Pupils are equal Skin: Warm and dry Abdomen: Soft. No guarding Or rebound. Respiratory: Clear in all benoit. No rhonchi no wheezing Heart: Heart tones are regular. Capillary refill is brisk and less than 2 seconds Neurologic: Awake, alert, oriented, answering questions appropriately. Moving all extremities well Lymphatic: No anterior-posterior cervical lymphadenopathy Musculoskeletal: No trauma no fracture no deformity Psychiatric: Cooperative with the examiner Vital Signs During ED Visit Patient Vitals for the past 24 hrs: BP Temp Temp src Pulse Resp SpO2 Height 07/18/24 0613 128/78 -- -- 98 16 98 % -- 07/18/24 0451 -- -- -- -- -- -- 1.778 m (5' 10) 07/18/24 0400 143/71 -- -- 110 -- 99 % -- 07/18/24 0359 (!) 170/93 98.1 F (36.7 C) Oral 110 17 98 % -- Orders/Results: No results found for this visit on 07/18/24. Radiographic Imaging US OB TRANSVAGINAL/CERVICAL LENGTH Final Result IMPRESSION: 1. Single live intrauterine gestation at approximately 13 weeks 6 days with a heart rate of 150 bpm. 2. Fluid within the endocervical canal. Procedures: Procedures Moderate Sedation Procedure: No ED Summary/MDM Patient had a quantitative HCG which he was 68,821. Ultrasound was performed showing single live intrauterine gestation of approximately 13 weeks and 6 days heart rate 150. At this time she was resting comfortably had no further bleeding she will follow up with her OBGYN Clinical Impression: 1. Vaginal bleeding before 22 weeks gestation No follow-ups on file. New Prescriptions No medications on file Discontinued Medications No medications on file An After Visit Summary was printed and given to the patient with above information. . Kishore Hackett MD 07/18/24 0632 [facility] 07-18-2024 Emergency department Note Bed: E011 Expected date: Expected time: Means of arrival: Comments: [facility] 07-18-2024 Emergency department Note Patient on list for US, radiology reporting could be 1-2 hrs before arrival. [facility] 01-27-2024 Nurse Note Patient wheeled off unit for discharge accompanied by this RN and spouse. Discharged home at this time. [facility] 01-27-2024 Miscellaneous Notes Patient wheeled off unit for discharge accompanied by this RN and spouse. Discharged home at this time. Discharge instructions reviewed with patient. Verbalizes understanding, denies questions or concerns. Printed copy of AVS provided. Patient ambulates to restroom at this time, voids without difficulty. States pain is 0/10, denies and nausea. Scant amount of pink drainage on mariela pad. Patient sitting up in bed at this time. States pain is 0/10. Scant amount of bleeding noted to mariela pad. Ice water and crackers provided. Call light within reach. DATE: 01/27/2024 Patient: Sweta King Pre-Op Dx: Missed [O02.1] Post-Op Dx: Missed [O02.1] Procedure: Procedure(s) (LRB): TREATMENT INCOMPLETE W/ D&C (N/A) Surgeon: Surgeons and Role: * Kenny Newman MD - Primary Anesthesia: General COMPLICATIONS: None. BLOOD LOSS: Minimal FINDINGS: The endometrial cavity sounded to approximately 12 cm. A moderate amount of products of conception were recovered at the time of D&C. PROCEDURE : Patient was taken to the operating room and underwent general endotracheal anesthesia. She was intubated without difficulty and placed in the dorsolithotomy position and underwent sterile prep and drape. After sterile prep and drape to weighted speculum was inserted into the vagina and the cervix was grasped with a single-tooth tenaculum. The endometrial cavity was sounded and sounded to approximately 12 cm. The cervical os was dilated sufficient to allow placement of the 11 mm rigid suction curette. The suction curette was inserted and the Capzles suction apparatus was turned on. A moderate amount of products of conception were recovered. The endometrial cavity was then sharply curetted with the sharp curette with minimal return of tissue. The suction curette was inserted for a second pass with no return of tissue. At this point the cervix was observed for hemostasis and when hemostasis was confirmed all instruments are removed, the patient was taken out of the dorsal lithotomy position, her anesthesia was reversed and she was extubated and transferred to the recovery room in stable condition SPECIMENS: ID Type Source Tests Collected by Time Destination 1 : products of conception Tissue - Other TISSUE SURGICAL PATHOLOGY REQUEST Kenny Newman MD 01/27/2024 0900 Kenny Newman MD See immediate post op note. Report given to Jennifer Sharpe RN Pt arrives to unit for scheduled d and c, accompanied by significant other. documented in this encounter [facility] 01-27-2024 Nurse Note Discharge instructions reviewed with patient. Verbalizes understanding, denies questions or concerns. Printed copy of AVS provided. [facility] 01-27-2024 Nurse Note Patient ambulates to restroom at this time, voids without difficulty. States pain is 0/10, denies and nausea. Scant amount of pink drainage on mariela pad. [facility] 01-27-2024 Nurse Note Patient sitting up in bed at this time. States pain is 0/10. Scant amount of bleeding noted to mariela pad. Ice water and crackers provided. Call light within reach. [facility] 01-27-2024 Surgery Postoperative evaluation and management note DATE: 01/27/2024 Patient: Sweta King Pre-Op Dx: Missed [O02.1] Post-Op Dx: Missed [O02.1] Procedure: Procedure(s) (LRB): TREATMENT INCOMPLETE W/ D&C (N/A) Surgeon: Surgeons and Role: * Kenny Newman MD - Primary Anesthesia: General COMPLICATIONS: None. BLOOD LOSS: Minimal FINDINGS: The endometrial cavity sounded to approximately 12 cm. A moderate amount of products of conception were recovered at the time of D&C. PROCEDURE : Patient was taken to the operating room and underwent general endotracheal anesthesia. She was intubated without difficulty and placed in the dorsolithotomy position and underwent sterile prep and drape. After sterile prep and drape to weighted speculum was inserted into the vagina and the cervix was grasped with a single-tooth tenaculum. The endometrial cavity was sounded and sounded to approximately 12 cm. The cervical os was dilated sufficient to allow placement of the 11 mm rigid suction curette. The suction curette was inserted and the Capzles suction apparatus was turned on. A moderate amount of products of conception were recovered. The endometrial cavity was then sharply curetted with the sharp curette with minimal return of tissue. The suction curette was inserted for a second pass with no return of tissue. At this point the cervix was observed for hemostasis and when hemostasis was confirmed all instruments are removed, the patient was taken out of the dorsal lithotomy position, her anesthesia was reversed and she was extubated and transferred to the recovery room in stable condition SPECIMENS: ID Type Source Tests Collected by Time Destination 1 : products of conception Tissue - Other TISSUE SURGICAL PATHOLOGY REQUEST Kenny Newman MD 01/27/2024 0900 Kenny Newman MD [facility] 01-27-2024 Surgery Postoperative evaluation and management note See immediate post op note. [facility] 01-27-2024 Nurse Note Report given to Jennifer Sharpe RN [facility] 01-27-2024 Nurse Note Pt arrives to unit for scheduled d and c, accompanied by significant other. [facility] 10-27-2023 History of Present illness Narrative Associated Order(s): IUD Removal Post-Procedure Diagnose(s): Encounter for IUD removal Patient ID: Sweta King is a 27 y.o. female. Chief Complaint Patient presents with Procedure Patient is here for IUD removal. Patient does not wish to discuss other control options at this time. BP 112/66 Ht 1.778 m (5' 10) Wt 98.7 kg (217 lb 9.6 oz) BMI 31.22 kg/m IUD Removal Date/Time: 10/27/2023 3:32 PM Performed by: Mireille Ely MD Authorized by: Mireille Ely MD Consent: Consent obtained: Verbal Consent given by: Patient Procedure risks and benefits discussed: yes Procedure: Removed with no complications: yes Comments: Patient to return in July for her annual exam. OBGyn Exam Colposcopy - Cervix image Problem List Items Addressed This Visit None Visit Diagnoses Encounter for IUD removal - Primary documented in this encounter [facility] Work Phone: 07-15-2023 History of Present illness Narrative Sweta King is a 27 y.o. female who is here for a routine exam. PCP = Silvina Whitfield MD Chief Complaint Patient presents with Gynecologic Exam Patient is here for a yearly exam. Patient has no concerns today. LMP: IUD Presents for annual exam. She voices no complaints and is doing well. Denies any bowel or bladder problems. Denies any breast problems. Patient has the Naye IUD which was placed in June 2022. OB History 2 Para 1 Term 1 0 AB 1 Living 1 SAB 1 IAB 0 Ectopic Multiple 0 Live Births 1 Social History Substance and Sexual Activity Sexual Activity Yes control/protection: I.U.D. Current contraception: IUD Past Medical History: Diagnosis Date Encounter for gynecological examination (general) (routine) without abnormal findings 09/28/2021 Reflux Neg IUD (intrauterine device) in place 07/03/2022 Naye Other conditions influencing health status Menstruation Personal history of other complications of , childbirth and the puerperium 02/2015 History of Past Surgical History: Procedure Laterality Date INTRAUTERINE DEVICE INSERTION 07/03/2022 Naye-- Removal 07/03/2025 OTHER SURGICAL HISTORY 02/2015 Surgically induced OTHER SURGICAL HISTORY 02/2015 Dilation and curettage Past med hx and past surg hx reviewed and notable for: none Review of Systems: Constitutional: No fever or chills Respiratory: No shortness of breath, or cough Cardiovascular: No chest pain or syncope Breasts: No breast pain, no masses, no nipple discharge Gastrointestinal: No nausea, vomiting, or diarrhea, no abdominal pain Genitourinary: No dysuria or frequency Gynecology: Negative except as noted in history of present illness All other: All other systems reviewed and negative for complaint Objective BP 114/68 Ht 1.778 m (5' 10) Wt 109 kg (240 lb) BMI 34.44 kg/m PHYSICAL EXAMINATION: Well-developed, well nourished, in no acute distress, alert and oriented x three, is pleasant and cooperative. HEENT: Clear. Pupils equal, round and reactive to light and accommodation. Extraocular muscles are intact. Oral mucosa pink without exudate. NECK: No lymphadenopathy, no thyromegaly. BREASTS: Symmetric, no palpable masses. No nipple discharge or retraction. LUNGS: Clear bilaterally. HEART: Regular rate and rhythm without murmurs. ABDOMEN: Normoactive bowel sounds, soft and nontender, no guarding or rebound tenderness, no CVA tenderness. EXTREMITIES: No clubbing, cyanosis or edema. NEUROLOGIC: Cranial nerves II-XII grossly intact. : Normal external female genitalia, normal vulva, normal vagina. Normal urethral meatus, urethra and bladder. Normal appearing cervix. IUD string seen at the cervix. Normal-sized uterus, no adnexal masses or tenderness. Pap smear performed today. Actions performed during this visit include: - Clinical breast exam - Clinical pelvic exam - No orders of the defined types were placed in this encounter. Problem List Items Addressed This Visit None Visit Diagnoses Encounter for gynecological examination without abnormal finding Relevant Orders THINPREP PAP Pap smear for cervical cancer screening Relevant Orders THINPREP PAP Provider Impression: 1. Annual Thank you for coming to your annual exam. Your findings during the exam were normal. Please return for your next visit in 1 year. documented in this encounter [facility] Work Phone: 04-11-2022 Note Send Summary: Discharge Summary Providers: Provider RoleProvider Name Mahnaz Kinsey Christopher Note Recipients: None Discharge: Summary: Admission Date: .09-Apr-2022 05:35:00 Discharge Date: 11-Apr-2022 Attending Physician at Discharge: Dr. Quintanilla Admission Reason: Elective induction at 39 weeks Final Discharge Diagnoses: Spontaneous vaginal delivery Procedures: Normal spontaneous vaginal delivery Condition at Discharge: Good Disposition at Discharge: home Physical Exam: Patient awake sitting in bed comfortably Lungs clear to auscultation Heart regular rate and rhythm Abdomen nontender uterine fundus firm below the umbilicus Perineum scant bleeding Appropriately oriented with normal mood and affect Hospital Course: Patient was admitted for an elective induction at 39 weeks gestation. Patient received a Matias balloon and misoprostol. Eventually the patient was started on oxytocin and her drains were ruptured. Eventually the patient progressed to fully dilated and proceeded to have a spontaneous vaginal delivery. the patient did well blood count was good and was discharged home on day #2 with instructions and plan to follow-up in 6 weeks Immunizations: Immunizations: 19-Feb-2022 Tdap: Immunizations, 19-Feb-2022 Discharge Information: and Continuing Care: Lab Results - Pending: None Radiology Results - Pending: None [place] Suicide Risk: negative Discharge Instructions: Activity: Return to normal activity as tolerated Nutrition/Diet: Regular Follow Up Appointments: Follow-Up - OB Provider: Physician/Dept/Service: OB Provider Dr. Quintanilla Call to Schedule in: 6 weeks Location: Outpatient office Discharge Medications: Home Medication 1 oral capsule - 1 tab(s) orally once a day acetaminophen 325 mg oral tablet - 3 tab(s) orally every 6 hours ibuprofen 800 mg oral tablet - 1 tab(s) orally every 8 hours PRN Medication DNR Status: Code StatusCode Status order at time of discharge: Full Code Electronic Signatures: Mahnaz Quintanilla) (Signed 11-Apr-2022 11:41) Authored: Send Summary, Summary Content, Immunizations, Ongoing Care, DNR Status, Note Completion Last Updated: 11-Apr-2022 11:41 by Mahnaz Quintanilla) [facility] 04-10-2022 Note Provider Information : Maternal Delivery Information: Delivery Type: vaginal delivery Did this pt receive corticosteroids at any time during this : No Was intraamniotic infection diagnosed during this labor: no What antibiotic(s) were administered during labor and/or pre-incision: none Did this patient receive progesterone in any form to prevent premature delivery: no Rupture of Membranes: artificial Spontaneous Labor: no Induction or Scheduled : induction Is patient at delivery >/= to 37 to < 39 completed weeks of gestation: no Vaginal Delivery Type: spontaneous Vaginal Delivery Complications: none Delivery Anesthesia: epidural Presentation/Lie: vertex Vertex Presentation: Right: occiput anterior Episiotomy & Repair: none Perineal Laceration: second degree Other Laceration: none Laceration Repair: yes 2-0 Vicryl Abrasion: Labial QBL (mL): 150 mL Blood Products Transfused during Delivery (indicate number of units given): none Choose Baby: A Day of Delivery (Baby A): 09-Apr-2022 Gestational Age at Delivery (wk.days): 39.4 Term: term 37.0 to 41.6 weeks Live : yes Vaginal Delivery Provider: Mahnaz Quintanilla Hemorrhage Risk Screen: Hemorrhage Medium Risk Factors (T&S) (2 or more medium risks Go to High Risk section & obtain T&C)augmentation of labor (with oxytocin), BMI > 35, IOL with oxytocin or cervical ripening(1) Hemorrhage Risk Assessmenthemorrhage risks reviewed and additional factors added if applicable Hemorrhage Risk Score HighPatient is at High Risk for an OB hemorrhage. Order Type & Cross. Score Calculation - IT Use Only3 Electronic Signatures: Mahnaz Quintanilla) (Signed 09-Apr-2022 22:11) Authored: Provider Information, Hemorrhage Risk, Note Completion Last Updated: 09-Apr-2022 22:11 by Mahnaz Quintanilla) References: 1. Data Referenced From History and Physical - OB 09-Apr-2022 08:18 [facility] 04-09-2022 Note HPI/OB History: Care Provider: Mahnaz Quintanilla HPI Descriptive Info: HPI Patient is a 26-year-old 2 para 0 at 39-4/7 weeks gestation with an EDC of 04/12/2022. Patient presents for an elective induction. Patient is has been relatively uncomplicated with the exception of obesity. Patient reports good movement denies contractions bleeding or abnormal discharge Labs: Labs: Labs: Blood Typed Date: 09-Apr-2022 Blood Type: O positive Antibody Screen Results: negative Chlamydia Date: 28-Sep-2021 Chlamydia Results: negative Gonorrhea Date: 28-Sep-2021 Gonorrhea Results: negative Group B Strep Date: 15-Mar-2022 Strep Results: negative GCT (dd-mmm-yy): 08-Jan-2022 GCT result: 125 HBsAG Date: 04-Oct-2021 HBsAG Results: negative Hemoglobin A1C (dd-mmm-yy): 04-Oct-2021 Hemoglobin A1C: 5 % Estimated Average Glucose: 97 HIV Date: 04-Oct-2021 HIV Results: negative Rubella Date: 04-Oct-2021 Rubella Results: immune Rubella Comments: Result Value POSITIVE Syphilis (mmm-dd-yyyy): 04-Oct-2021 Syphilis Results: negative Antepartum/: Antepartum/PP: Final [id number] Current EGA:39.4 Patient is > or = 35.0 wks EGAyes Determined byLeopolbev EFW (kg)3.629 kilogram(s) EFW (lb)8 pound(s) EFW (oz)0 ounce(s) Presentationcephalic presentation verified bybedside ultrasound Vaginal BleedingNo Contractions/Abdominal PainNo Discharge/Loss of FluidNo MovementGood Hemorrhage Medium Risk Factors (T&S) (2 or more medium risks Go to High Risk section & obtain T&C)augmentation of labor (with oxytocin), BMI > 35, IOL with oxytocin or cervical ripening Hemorrhage Risk Assessmenthemorrhage risk completed on admission Hemorrhage Risk ScorePatient is at High Risk for an OB hemorrhage. Order Type & Cross. Score Calculation - IT Use Only3 TOLACno Did this patient receive progesterone in any form to prevent premature deliveryno Does patient desire postplacental IUDno Past Medical/Surgical/MANAGER PARTY History: [employer] History: Past OB history surgically induced Last medical history negative Social History: Social History: Smoking Statusnever smoker (1) Alcohol Usedenies(1) Drug Usedenies (1) Drug 2 Usedenies (1) Allergies: No Known Allergies: Medications Prior to Admission: Admission Medication Reconciliation has not been completed for this patient. Objective: Objective Information: T PRBPMAPSpO2 [id number]% Date/Time04/09 6: 6: 6: 6: 6:14 Range (98 - 98 ) (16 - 16 ) (128 - 128 )/ (81 - 81 ) (99 - 99 ) (98% - 98% ) Physical Exam by System: Constitutional: Awake comfortable appearing sitting in bed Obstetric: Gravid uterus nontender approximately 8 pound Head/Neck: Good range of motion Respiratory/Thorax: Clear to auscultation with good air movement Cardiovascular: Regular rate and rhythm Genitourinary: Cervix 2+ centimeters 75% soft mid position -2 station Musculoskeletal: Good mobility of her extremities Psychological: Appropriately oriented with normal mood and affect NST Interpretation - Baby A: Baseline [id number] Variabilitymoderate (amplitude range 6 to 25 bpm) InterpretationReactive (2 15x15 accels) Recent Lab Results: Results: CBC: 04/09/2022 06:37 \ Hgb / \ 13.3 / WBC Plt 10.5 206 / Hct \ / 39.9 \ RBC: 4.93 MCV: 81 Assessment and Plan: Assessment: Patient is a 26-year-old 2 para 0 at 39-4/7 weeks gestation who presents for an elective induction. We will begin with cervical ripening balloon catheter placed with vaginal Cytotec. We will repeat every 3 hours as needed. Once balloon comes out we will begin oxytocin. tracing reassuring GBS negative Pain management we will begin with Stadol but may have epidural upon request Electronic Signatures: Mahnaz Quintanilla) (Signed 09-Apr-2022 08:26) Authored: HPI/OB History, Labs, Antepartum/PP, Past Medical/Surgical/MANAGER PARTY History, Social History, Allergies, Medications Prior to Admission, Objective, Assessment and Plan, Note Completion Last Updated: 09-Apr-2022 08:26 by Mahnaz Quintanilla) References: 1. Data Referenced From Patient Profile - OB v3 09-Apr-2022 06:47 [facility] 09-28-2021 Note 57 Date of Procedure: 09/28/2021 Pathologist: [facility], Cytology Date Reported: 10/19/2021 Date Received: 09/28/2021 Submitting Physician: NORMAN LEONARD, DO FINAL CYTOLOGICAL INTERPRETATION A. THINPREP PAP CERVICAL: Specimen adequacy: SATISFACTORY FOR EVALUATION. Quality Indicator: Endocervical/transformation zone component is present. Quality Indicator: Partially obscuring inflammation. General Categorization: NEGATIVE FOR INTRAEPITHELIAL LESION OR MALIGNANCY. Descriptive Interpretation: SHIFT IN VAGINAL MORGAN SUGGESTIVE OF BACTERIAL VAGINOSIS. Ancillary Testing: Specimen does not meet the requisition-stated criteria for HPV testing. See Pap test interpretation above. QC review performed at [facility], [address] [place] [address] This specimen has been analyzed by the iCabbiPrep Imaging System ([employer] an automated imaging and review system, which assists the laboratory in evaluating cells on ThinPrep Pap tests. Following automated imaging, selected benoit from every slide were reviewed by a district manager in training and/or pathologist. Electronically Signed Out By [facility], Cytology//TRAM/SNEHAL By the signature on this report, the individual or group listed as making the Final Interpretation/Diagnosis certifies that they have reviewed this case. Diagnostic interpretation performed at [facility] [address] [facility]. [place] [id number] Educational Note: Cervical cytology is a screening procedure primarily for squamous cancers and precursors and has associated false-negative and false-positive results as evidenced by published data. Your patient?s test should be interpreted in this context, together with patient?s history and clinical findings. Regular sampling and follow-up of unexplained clinical signs and symptoms are recommended to minimize false negative results. Clinical History Date of Last Menstrual Period: 07/06/2021 Other Clinical Conditions: HPV Reflex for ASC-US only - Include HPV Genotype Annual Clinical Diagnosis History: Encounter for screening for cervical cancer - (Z12.4) Source of Specimen A: THINPREP PAP CERVICAL [facility] Department of Pathology [address] [place] [address] Comment on above: Performed By: #### T +S #### [address] [place] [address] Evaluation note Extremities: Good mobilityGenitourinary: Scant bloodCardiovascular: Regular rate and rhythmRespiratory/Thorax: Clear to auscultation but poor effortConstitutional: Awake sitting in bed comfortablyPsychological: Appropriately oriented with normal mood and affectHead/Neck: Good range of motion [facility] Evaluation note Diagnosis Encounter for gynecological examination without abnormal finding Pap smear for cervical cancer screening Screening for malignant neoplasm of the cervix documented in this encounter [facility] Work Phone: Evaluation note* Diagnosis Encounter for IUD removal- Primary documented in this encounter [facility] Work Phone: Evaluation note* Diagnosis Incomplete - Primary Legally unspecified , incomplete, without mention of complication Missed [facility]* Diagnosis Vaginal bleeding before 22 weeks gestation- Primary Unspecified hemorrhage in early , unspecified as to episode of care documented in this encounter [facility] note* Diagnosis Encounter for supervision of high risk in second trimester, antepartum- Primary 14 weeks gestation of state, incidental Screen for STD (sexually transmitted disease) Screening examination for venereal disease with care elsewhere in second trimester Vaginal bleeding affecting early Obesity affecting in second trimester, unspecified obesity type History of macrosomia in in prior , currently with other poor obstetric history Anxiety during History of miscarriage Personal history of other genital system and obstetric disorders Constipation during in second trimester documented in this encounter [facility] note* Diagnosis Encounter for supervision of high risk in second trimester, antepartum (HCC)- Primary 16 weeks gestation of ([facility]) state, incidental History of macrosomia in infant in prior , currently (HCC) with other poor obstetric history Obesity affecting in second trimester, unspecified obesity type (HCC) Anxiety during ([facility]) History of depression documented in this encounter [facility] note* Diagnosis Encounter for screening for malformation using ultrasound ([facility])- Primary 16 weeks gestation of (HCC) state, incidental Obesity affecting in second trimester, unspecified obesity type (HCC) documented in this encounter [facility] note* Diagnosis Encounter for screening for malformation using ultrasound ([facility])- Primary 20 weeks gestation of ([facility]) state, incidental Obesity affecting in second trimester, unspecified obesity type (HCC) documented in this encounter [facility] note* Diagnosis Encounter for supervision of high risk in second trimester, antepartum (HCC)- Primary Obesity affecting in second trimester, unspecified obesity type (HCC) Anxiety during (HCC) 20 weeks gestation of (HCC) state, incidental documented in this encounter [facility] note* Diagnosis Screening for diabetes mellitus- Primary documented in this encounter [facility] note* Diagnosis Acute conjunctivitis of right eye, unspecified acute conjunctivitis type- Primary documented in this encounter [facility] Work Phone: Evaluation note* Diagnosis Encounter for supervision of high risk in second trimester, antepartum (HCC)- Primary 28 weeks gestation of (HCC) state, incidental Need for vaccination Need for prophylactic vaccination and inoculation against unspecified single disease History of macrosomia in infant in prior , currently (HCC) with other poor obstetric history Obesity affecting , antepartum, unspecified obesity type (HCC) documented in this encounter [facility] note* Diagnosis Encounter for supervision of high risk in third trimester, antepartum (HCC)- Primary 30 weeks gestation of (HCC) state, incidental History of macrosomia in infant in prior , currently (HCC) with other poor obstetric history Obesity affecting in second trimester, unspecified obesity type (HCC) Anxiety during ([facility]) documented in this encounter [facility] note* Diagnosis Encounter for supervision of high risk in third trimester, antepartum (HCC)- Primary History of macrosomia in in prior , currently (HCC) with other poor obstetric history Obesity affecting in second trimester, unspecified obesity type (HCC) Anxiety during (HCC) 32 weeks gestation of (HCC) state, incidental * Assessment & Plan Note - Maya Vasquez MD - 12/01/2024 9:17 AM EDT Associated Problem(s): Encounter for supervision of high risk in third trimester, antepartum ([facility]) * Assessment & Plan Note - Maya Vasquez MD - 12/01/2024 9:17 AM EDT Associated Problem(s): History of macrosomia in infant in prior , currently ([facility]) Orders: OBSTETRIC ULTRASOUND WHI; Future * Assessment & Plan Note - Maya Vasquez MD - 12/01/2024 9:17 AM EDT Associated Problem(s): Obesity affecting in second trimester (HCC) Repeat growth at 36 weeks Growth today pending Declined ASA Orders: OBSTETRIC ULTRASOUND WHI; Future * Assessment & Plan Note - Maya Vasquez MD - 12/01/2024 9:17 AM EDT Associated Problem(s): Anxiety during (HCC) [facility]* Diagnosis Encounter for ultrasound to check growth ([facility])- Primary Encounter for routine screening for malformation using ultrasonics Encounter for supervision of high risk in second trimester, antepartum ([facility]) History of macrosomia in in prior , currently ([facility]) with other poor obstetric history Obesity affecting , antepartum, unspecified obesity type (HCC) 32 weeks gestation of ([facility]) state, incidental Encounter for supervision of high risk in third trimester, antepartum (HCC)- Primary History of macrosomia in in prior , currently (HCC) with other poor obstetric history Obesity affecting in second trimester, unspecified obesity type (HCC) Anxiety during (HCC) 32 weeks gestation of ([facility]) state, incidental documented in this encounter [facility] note* Diagnosis Encounter for supervision of high risk in third trimester, antepartum (HCC)- Primary History of macrosomia in in prior , currently (HCC) with other poor obstetric history Obesity affecting in second trimester, unspecified obesity type (HCC) Anxiety during (HCC) 32 weeks gestation of ([facility]) state, incidental Encounter for supervision of high risk in third trimester, antepartum (HCC)- Primary 33 weeks gestation of ([facility]) state, incidental RUQ pain Abdominal pain, right upper quadrant Nausea Nausea alone documented in this encounter [facility] note* Diagnosis Encounter for supervision of high risk in third trimester, antepartum (HCC)- Primary History of macrosomia in in prior , currently (HCC) with other poor obstetric history Obesity affecting in second trimester, unspecified obesity type (HCC) Anxiety during (HCC) 32 weeks gestation of (HCC) state, incidental History of macrosomia in infant in prior , currently (HCC) with other poor obstetric history Obesity affecting in second trimester, unspecified obesity type (HCC) documented in this encounter [facility] note* Diagnosis Encounter for supervision of high risk in third trimester, antepartum (HCC)- Primary History of macrosomia in infant in prior , currently (HCC) with other poor obstetric history Obesity affecting in second trimester, unspecified obesity type (HCC) Anxiety during (HCC) 32 weeks gestation of (HCC) state, incidental Encounter for supervision of high risk in third trimester, antepartum (HCC)- Primary 36 weeks gestation of (HCC) state, incidental History of macrosomia in in prior , currently (HCC) with other poor obstetric history Anxiety during (HCC) Obesity affecting in second trimester, unspecified obesity type (HCC) documented in this encounter [facility] note* Diagnosis Encounter for supervision of high risk in third trimester, antepartum (HCC)- Primary History of macrosomia in in prior , currently (HCC) with other poor obstetric history Obesity affecting in second trimester, unspecified obesity type (HCC) Anxiety during (HCC) 32 weeks gestation of (HCC) state, incidental Encounter for supervision of high risk in third trimester, antepartum (HCC)- Primary History of macrosomia in infant in prior , currently (HCC) with other poor obstetric history Anxiety during (HCC) Obesity affecting in second trimester, unspecified obesity type (HCC) 37 weeks gestation of (HCC) state, incidental * Assessment & Plan Note - Maya Vasquez MD - 01/05/2025 9:16 AM EDT Associated Problem(s): Encounter for supervision of high risk in third trimester, antepartum (HCC) Orders: URINE OB DIP B/O * Assessment & Plan Note - NeyMaya Dang MD - 01/05/2025 9:16 AM EDT Associated Problem(s): History of macrosomia in in prior , currently (HCC) Orders: URINE OB DIP B/O * Assessment & Plan Note - Maya Vasquez MD - 01/05/2025 9:16 AM EDT Associated Problem(s): Anxiety during (HCC) Orders: URINE OB DIP B/O * Assessment & Plan Note - Maya Vasquez MD - 01/05/2025 9:16 AM EDT Associated Problem(s): Obesity affecting in second trimester (HCC) Orders: URINE OB DIP B/O [facility] Encounter for supervision of high risk in third trimester, antepartum (HCC)- Primary History of macrosomia in in prior , currently (HCC) with other poor obstetric history Obesity affecting in second trimester, unspecified obesity type (HCC) Anxiety during (HCC) 32 weeks gestation of (HCC) state, incidental Encounter for supervision of high risk in third trimester, antepartum (HCC)- Primary History of macrosomia in in prior , currently (HCC) with other poor obstetric history Anxiety during (HCC) Obesity affecting in second trimester, unspecified obesity type (HCC) 37 weeks gestation of (HCC) state, incidental 38 weeks gestation of (HCC)- Primary state, incidental Encounter for supervision of high risk in third trimester, antepartum (HCC) Obesity affecting in second trimester, unspecified obesity type (HCC) * Assessment & Plan Note - Kye Kendrick MD - 01/14/2025 9:22 AM EDTAssociated Problem(s): Encounter for supervision of high risk in third trimester, antepartum (HCC) Orders: URINE OB DIP B/O * Assessment & Plan Note - Kye Kendrick MD - 01/14/2025 9:22 AM EDTAssociated Problem(s): Obesity affecting in second trimester (HCC) Orders: URINE OB DIP B/O [facility] [id number] presents for secondary menorrhea. Patient notes some breast tenderness and minimal nausea but no vomiting. Patient taking vitamins. Denies any cramping or bleeding. Patient notes they were trying for few months and just got in the fall [employer] Work Phone: History of Present illness NarrativePatient is a 26-year-old who comes in for 6-week visit. Patient reports that she is not breast-feeding. Patient has not been sexually active. Patient has not had a period. Patient reports that previously she had a Naye IUD and desires to have a Naye replaced for contraception. Patient has no concerns todayWCloudSlides Work Phone: History of Present illness NarrativePatient is a 26-year-old who comes in for an IUD Naye placement. Patient is currently on her period. Patient has no specific concernsWVeritract Work Phone: History of Present illness NarrativeLeslie is a 26-year-old who comes in for an IUD string check follow-up. Patient reports a small amount of brown discharge no cramping or bleeding and has no concerns [employer] Work Phone: Hospital Discharge instructions* Activity:Return to normal activity as tolerated. * Patient Instructions:Pelvic Rest: DO NOT place anything in vagina until cleared by OB Provider. Kaden return to school/work until cleared by OB Provider. * Follow-Up - OB Provider:Physician/Dept/Service: OB Provider, Dr. Bermudez to Schedule in: 6 weeksLocation: Outpatient office * Gold Form - Other Clinicians:Other Clinician Instructions: Any woman can have complications after the of a baby including a blood clot, a heart problem, hypertensive disorder/eclampsia, depression, hemorrhage, or infection. Notify all providers of your delivery date up to one year after .* Call 911 or go to nearest emergency room right away if you have: PAIN or pressure in chest; OBSTRUCTED breathing or shortness of breath; SEIZURES; THOUGHTS of hurting yourself or your baby; heart palpitations/racing; change in alertness/confusion.Call your provider if you have: BLEEDING, soaking t hrough a pad/hour, or blood clots the size of an egg or bigger; INCISION (episiotomy stitches or site) that is not healing (increased redness, pain, drainage/pus, or separation); RED or swollen leg/calf that is painful or warm to touch, especially in one leg more than the other; TEMPERATURE of 100.4 F or higher or chills; HEADACHE that does not get better with medicine, rest or hydration, or bad headache with vision changes like spots or flashing lights; increased swelling of face, hands or legs; severe cramps or upper right belly pain; red or swollen breast that is painful or warm to touch; an unusual, foul odor from your vaginal discharge; pain, burning, or difficulty during urination; severe constipation (more than 5 days); feelings of depression (such as depressed mood, lossof interest in enjoyable things, unable to care for yourself, trouble sleeping, lack of appetite, or feeling worthless). If you can t reach your provider or symptoms worsen, call 911 or go to [facility]. *Information obtained from DERRELL alexander: Save Your Life: Get Care for These POST- Warning SignsOn Behalf on the [facility] Maternity Staff, Congratulations on your infant. It was our pleasure to take care of you and your infant during your stay. We hope during this stay that we have exceeded all of your expectations. We will be calling you in a few days to check up on you and your infant. Please allow us to speak with you and please ask questions or let us know if you have any concerns. If you need any assistance after you go home please give us a call. Also, please join our [facility] Support Group which meets the friday of every month at 10 am in the OB unit. No need to register. If you have any questions please call us at [phone]. Again, Congratulations! Warmest Regards,[facility]'s Maternity Staff [facility]* Attachments The following attachments cannot be sent through Care Everywhere. * Dilation and Curettage ([facility]) (Vietnamese) [facility]* Attachments The following attachments cannot be sent through Care Everywhere. * : Vaginal Bleeding (Vietnamese) [facility] (narrative)* Radiology (Emergency) - New Request Specialty Diagnoses / Procedures Referred By Magaly montanez Referred To Contact Procedures US OB TRANSVAGINAL/CERVICAL LENGTH Kishore Hackett MD [address] [place] [address] Phone: tel: fax: Referral ID Status Reason Start Date Expiration Date V isits Requested Visits Authorized [id number] New Request 07/18/2024 08/12/2025 1 1 [facility] for visit Narrative* Diagnostic Procedure Only (Routine) - Closed Specialty Diagnoses / Procedures Referred By Magaly montanez Referred To Contact [facility] Diagnoses 28 weeks gestation of (HCC) Encounter for supervision of high risk in second trimester, antepartum (HCC) History of macrosomia in in prior , currently (HCC) Obesity affecting , antepartum, unspecified obesity type (HCC) Procedures OBSTETRIC ULTRASOUND WHI US PREG UTERUS AFTER 1ST TRIMEST GESTATION Corinne Shannon MD [address] [place] [address] Phone: tel: fax: [facility] [address] [place] [address] Referral ID Status Reason Start Date Expiration Date V isits Requested Visits Authorized [id number] Closed Auto-Generate d Referral 11/04/2024 11/04/2025 1 1 [facility] Chief Complaint PT IS HERE TODAY FOR AMENORRHEA. HAS NO CONCERNS. DENIES ANY CRAMPING OR BLEEDING. HAS BREAST TENDERNESS. FEELS NAUSEOUS ON AND OFF. DENIES ANY VOMITING. LMP: 07/06/2021t here for Post Visit (6 WEEK). Patient had a VAGINAL delivery of a MALE on 04/09/22at (39 weeks), weighed 8# 9oz. Patient is currently BOTTLE feeding. Patient would like to discuss control options. Pt IS NOT HAVING ANY post depression. Pt has NOT resumed sexual activity. Pt has no questions or concerns at this time.* Patient here today for Naye insertion. She has no concerns. LMP:07/02/2022 * Office supply * Buy and Bill * Syla IUD * [facility]:[id number] * LOT#:[id number] * EXP:05/2024 Patient here today for IUD String check. She has no concerns other than brown discharge last coupledays when she wipes. Family History No Family History Records FoundUnknown Family Member Name Dates Details Family history of hypertensi on: Mother(V17.49, Z82.49) Status:Active No pertinent family history: Father(V49.89, Z78.9) Status:Active Family history of lymphoma: Paternal Grandmother(V16.7, Z80.7) Status:Active Unknown Family Member Name Dates Details Family history of hypertensi on: Mother(V17.49, Z82.49) Status:Active No pertinent family history: Father(V49.89, Z78.9) Status:Active Family history of lymphoma: Paternal Grandmother(V16.7, Z80.7) Status:Active Unknown Family Member Name Dates Details Family history of hypertensi on: Mother(V17.49, Z82.49) Status:Active No pertinent family history: Father(V49.89, Z78.9) Status:Active Family history of lymphoma: Paternal Grandmother(V16.7, Z80.7) Status:Active Unknown Family Member Name Dates Details Family history of hypertensi on: Mother(V17.49, Z82.49) Status:Active No pertinent family history: Father(V49.89, Z78.9) Status:Active Family history of lymphoma: Paternal Grandmother(V16.7, Z80.7) Status:Active Unknown Family Member Name Dates Details Family history of hypertensi on: Mother(V17.49, Z82.49) Status:Active No pertinent family history: Father(V49.89, Z78.9) Status:Active Family history of lymphoma: Paternal Grandmother(V16.7, Z80.7) Status:Active Unknown Family Member Name Dates Details Family history of hypertensi on: Mother(V17.49, Z82.49) Status:Active No pertinent family history: Father(V49.89, Z78.9) Status:Active Family history of lymphoma: Paternal Grandmother(V16.7, Z80.7) Status:Active Unknown Family Member Name Dates Details Family history of hypertensi on: Mother(V17.49, Z82.49) Status:Active No pertinent family history: Father(V49.89, Z78.9) Status:Active Family history of lymphoma: Paternal Grandmother(V16.7, Z80.7) Status:Active Unknown Family Member Name Dates Details Family history of hypertensi on: Mother(V17.49, Z82.49) Status:Active No pertinent family history: Father(V49.89, Z78.9) Status:Active Family history of lymphoma: Paternal Grandmother(V16.7, Z80.7) Status:Active Unknown Family Member Name Dates Details Family history of hypertensi on: Mother(V17.49, Z82.49) Status:Active No pertinent family history: Father(V49.89, Z78.9) Status:Active Family history of lymphoma: Paternal Grandmother(V16.7, Z80.7) Status:Active Unknown Family Member Name Dates Details Family history of hypertensi on: Mother(V17.49, Z82.49) Status:Active No pertinent family history: Father(V49.89, Z78.9) Status:Active Family history of lymphoma: Paternal Grandmother(V16.7, Z80.7) Status:Active Unknown Family Member Name Dates Details Family history of hypertensi on: Mother(V17.49, Z82.49) Status:Active No pertinent family history: Father(V49.89, Z78.9) Status:Active Family history of lymphoma: Paternal Grandmother(V16.7, Z80.7) Status:Active Unknown Family Member Name Dates Details Family history of hypertensi on: Mother(V17.49, Z82.49) Status:Active No pertinent family history: Father(V49.89, Z78.9) Status:Active Family history of lymphoma: Paternal Grandmother(V16.7, Z80.7) Status:Active Unknown Family Member Name Dates Details Family history of hypertensi on: Mother(V17.49, Z82.49) Status:Active No pertinent family history: Father(V49.89, Z78.9) Status:Active Family history of lymphoma: Paternal Grandmother(V16.7, Z80.7) Status:Active Unknown Family Member Name Dates Details Family history of hypertensi on: Mother(V17.49, Z82.49) Status:Active No pertinent family history: Father(V49.89, Z78.9) Status:Active Family history of lymphoma: Paternal Grandmother(V16.7, Z80.7) Status:Active Unknown Family Member Name Dates Details Family history of hypertensi on: Mother(V17.49, Z82.49) Status:Active No pertinent family history: Father(V49.89, Z78.9) Status:Active Family history of lymphoma: Paternal Grandmother(V16.7, Z80.7) Status:Active Unknown Family Member Name Dates Details Family history of hypertensi on: Mother(V17.49, Z82.49) Status:Active No pertinent family history: Father(V49.89, Z78.9) Status:Active Family history of lymphoma: Paternal Grandmother(V16.7, Z80.7) Status:Active Unknown Family Member Name Dates Details Family history of hypertensi on: Mother(V17.49, Z82.49) Status:Active No pertinent family history: Father(V49.89, Z78.9) Status:Active Family history of lymphoma: Paternal Grandmother(V16.7, Z80.7) Status:Active Unknown Family Member Name Dates Details Family history of hypertensi on: Mother(V17.49, Z82.49) Status:Active No pertinent family history: Father(V49.89, Z78.9) Status:Active Family history of lymphoma: Paternal Grandmother(V16.7, Z80.7) Status:Active Unknown Family Member Name Dates Details Family history of hypertensi on: Mother(V17.49, Z82.49) Status:Active No pertinent family history: Father(V49.89, Z78.9) Status:Active Family history of lymphoma: Paternal Grandmother(V16.7, Z80.7) Status:Active Unknown Family Member Name Dates Details Family history of hypertensi on: Mother(V17.49, Z82.49) Status:Active No pertinent family history: Father(V49.89, Z78.9) Status:Active Family history of lymphoma: Paternal Grandmother(V16.7, Z80.7) Status:Active Summary Purpose Advance Directives No Advanced Directives Records Found Date Activated Date Inactivated Comments 01/27/2024 10:37 AM Additional Source Comments <item> Privacy Markings (unrecogniz ed section and content) Section Author: Grace Choi PROHIBITION ON REDISCLOSURE OF CONFIDENTIAL INFORMATION This notice accompanies a disclosure of information concerning a client made to you with the consent of such client. INFORMATION SOURCE (unrecogn ized section and content) DATE CREATED AUTHOR 04/13/2022 [facility] DATE CREATED AUTHOR AUTHOR'S ORGANIZ ATION 07/14/2022 [facility] DATE CREATED AUTHOR AUTHOR'S ORGANIZ ATION 07/14/2022 [facility] DATE CREATED AUTHOR AUTHOR'S ORGANIZ ATION [facility]/2023 [facility] DATE CREATED AUTHOR AUTHOR'S ORGANIZ ATION 07/14/2024 [facility] DATE CREATED AUTHOR AUTHOR'S ORGANIZ ATION 07/22/2024 [facility] DATE CREATED AUTHOR AUTHOR'S ORGANIZ ATION 11/01/2024 [facility] DATE CREATED AUTHOR AUTHOR'S ORGANIZ ATION 01/06/[address] [facility] DATE CREATED AUTHOR AUTHOR'S ORGANIZ ATION 01/16/2025 [facility] Reason for Visit (unrecogniz ed section and content) Reason Comments Gynecologic Exam Patient is here for a yearly exam. Patient has no concerns today. LMP: IUD Reason Comments Procedure Patient is here for IUD removal. Patient does not wish to discuss other control options at this time. Specialty Diagnoses / Procedures Referred By Magaly montanez Referred To Contact Kenny Newman MD [address] [place] [phone] [facility] Referral ID Status Reason Start Date Expiration Date Visits Re quested Visits Authorized [id number] 1 1 Reason Comments Spotting Reports 13 weeks pre gnant and woke up with 1 episode of blood gushing out. Pt states 4th with 1 living child. Pt denies pain at this time. Reason Comments Initial OB Visit Reason Comments Received Outside Medical Records Reason Onset Date Comments Care 08/11/2024 Reason Comments US Specialty Diagnoses / Procedures Referred By Magaly montanez Referred To Contact [facility] Diagnoses 14 weeks gestation of (HCC) Procedures OBSTETRIC ULTRASOUND WHI US PREG UTERUS AFTER 1ST TRIMEST GESTATION Nirmala Friedman APRN.ADJUSTER LEADER [address] [place] [address] Phone: tel: fax: [facility] [address] [place] [address] Referral ID Status Reason Start Date Expiration Date V isits Requested Visits Authorized [id number] Closed Auto-Generate d Referral 07/29/2024 07/29/2025 1 1 Specialty Diagnoses / Procedures Referred By Magaly montanez Referred To Contact [facility] Diagnoses Encounter for supervision of high risk in second trimester, antepartum (HCC) 16 weeks gestation of (HCC) Procedures OBSTETRIC ULTRASOUND WHI US PREG UTERUS AFTER 1ST TRIMEST GESTATION Nirmala Friedman APRN.ADJUSTER LEADER [address] [place] [address] Phone: tel: fax: [address] [address] Referral ID Status Reason Start Date Expiration Date V isits Requested Visits Authorized [id number] Closed Auto-Generate d Referral 08/11/2024 08/11/2025 1 1 Reason Onset Date Comments Care 09/09/2024 Reason Onset Date Comments Care 10/07/2024 Reason Comments Eye Problem Right eye irritation X today Reason Onset Date Comments Care 11/04/2024 Reason Onset Date Comments Care 11/15/2024 Reason Onset Date Comments Care 12/01/2024 Reason Comments OB RUQ pain Reason Onset Date Comments Care 12/09/2024 Specialty Diagnoses / Procedures Referred By Contal t Referred To Contact [facility] Diagnoses History of macrosomia in infant in prior , currently (HCC) Obesity affecting in second trimester, unspecified obesity type (HCC) Procedures OBSTETRIC ULTRASOUND WHI US PREG UTERUS AFTER 1ST TRIMEST GESTATION Maya Vasquez MD [address] [place] [address] Phone: tel: fax: [address] [address] Referral ID Status Reason Start Date Expiration Date V isits Requested Visits Authorized [id number] Closed Auto-Generate d Referral 12/01/2024 12/01/2025 1 1 Reason Onset Date Comments Care 12/31/2024 Reason Onset Date Comments Care 01/05/2025 Reason Onset Date Comments Care 01/14/2025 Care Teams (unrecognized sec tion and content) 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 Specialty Start Date End Date Silvina Whitfield MD PCP - General 08/31/21 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 Specialty Start Date End Date Silvina Whitfield MD PCP - General 08/31/21 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 Specialty Start Date End Date Silvina Whitfield MD [facility] [place] [address] PCP - General Family Medicine 10/29/24 Scheduled Active and Recently Administ ered Medications (unrecognized section and content) Medication Order 01/25/2024 01/26/2024 01/27/2024 Doxycycline hyclate (VIBRAMYCIN) 200 mg in Sodium chloride 0.9%, with overfill 295 mL (total volume) IVPB (COMPLETED) 200 mg, Intravenous, Administer over 2 Hours, ONCE, 1 dose, On Fri01/27/24 at 0615, Extravasation Risk 0657 ($$New Bag$$ - Provider: Ela Pfeiffer RN) Lactated ringers IV solution 1,000 mL (COMPLETED) 1,000 mL, Intravenous, ONCE, 1 dose, On Fri01/27/24 at 0800 0858 ($$New Bag$$ - Provider: Louann Payne APRN-THEATRICAL AGENT) Ondansetron 4mg/2ml (ZOFRAN) injection 4 mg 4 mg, Intravenous, EVERY 4 HOURS, First dose on Fri01/27/24 at 1030, Until Discontinued, Post-op/Post-Proc 1030 (Canceled Entry - Provider: System Discharge - Comment: Automatically canceled at discontinue of medication order) Continuous Medication Order 01/25/2024 01/26/2024 01/27/2024 Lactated ringers IV solution Intravenous, at 50 mL/hr, CONTINUOUS, Starting on Fri01/27/24 at 1030, Until Fri01/27/24 at 1322, Post-op/Post-Proc 1030 (Canceled Entry - Provider: System Discharge - Comment: Automatically canceled at discontinue of medication order) PRN Medication Order 01/25/2024 01/26/2024 01/27/2024 Acetaminophen (TYLENOL) tablet 325 mg 325 mg, Oral, EVERY 4 HOURS NEEDED, Starting on Fri01/27/24 at 1025, Until Fri01/27/24 at 1322, Mild Pain, not to exceed 4 grams in 24 hours, Post-op/Post-Proc diphenhydrAMINE (BENADRYL) tablet 50 mg 50 mg, Oral, EVERY 6 HOURS NEEDED, Starting on Fri01/27/24 at 1025, Until Fri01/27/24 at 1322, Itching, Post-op/Post-Proc hydroCODone-acetaminophen (NORCO) 5-325 MG per tablet 1 tablet 1 tablet, Oral, EVERY 4 HOURS NEEDED, Starting on Fri01/27/24 at 1025, Until Fri01/27/24 at 1322, Moderate Pain, Maximum dose of acetaminophen is 4000 mg from all sources in 24 hours., Post-op/Post-Proc Ibuprofen (MOTRIN) tablet 600 mg 600 mg, Oral, EVERY 6 HOURS NEEDED, Starting on Fri01/27/24 at 1025, Until Fri01/27/24 at 1322, Mild Pain, give first for mild pain, not to exceed 3.2 grams in 24 hours, Post-op/Post-Proc Ondansetron (ZOFRAN) tablet 4 mg 4 mg, Oral, EVERY 6 HOURS NEEDED, Starting on Fri01/27/24 at 1025, Until Fri01/27/24 at 1322, Nausea / Vomiting, Post-op/Post-Proc oxyCODONE-acetaminophen (PERCOCET) 5-325 MG per tablet 1 tablet 1 tablet, Oral, EVERY 3 HOURS NEEDED, Starting on Fri01/27/24 at 1025, Until Fri01/27/24 at 1322, Severe Pain, can give for moderate pain if pt prefers over norco, May repeat in 1 hour prn moderate pain when tolerating clear liquids., Post-op/Post-Proc Source Comments (unrecognize d section and content) In the event this informatio n is protected by the Federal Confidentiality of Alcohol and Drug Abuse Patient Records regulations: The Federal rules restrict any use of the information to criminally investigate or prosecute any alcohol or drug abuse patient.[facility] the event this information is protected by the Federal Confidentiality of Alcohol and Drug Abuse Patient Records regulations: The Federal rules restrict any use of the information to criminally investigate or prosecute any alcohol or drug abuse patient.[facility] the event this information is protected by the Federal Confidentiality of Alcohol and Drug Abuse Patient Records regulations: The Federal rules restrict any use of the information to criminally investigate or prosecute any alcohol or drug abuse patient.[facility] the event this information is protected by the Federal Confidentiality of Alcohol and Drug Abuse Patient Records regulations: The Federal rules restrict any use of the information to criminally investigate or prosecute any alcohol or drug abuse patient.[facility] the event this information is protected by the Federal Confidentiality of Alcohol and Drug Abuse Patient Records regulations: The Federal rules restrict any use of the information to criminally investigate or prosecute any alcohol or drug abuse patient.[facility]In the event this information is protected by the Federal Confidentiality of Alcohol and Drug Abuse Patient Records regulations: The Federal rules restrict any use of the information to criminally investigate or prosecute any alcohol or drug abuse patient.[facility]In the event this information is protected by the Federal Confidentiality of Alcohol and Drug Abuse Patient Records regulations: The Federal rules restrict any use of the information to criminally investigate or prosecute any alcohol or drug abuse patient.[facility]In the event this information is protected by the Federal Confidentiality of Alcohol and Drug Abuse Patient Records regulations: The Federal rules restrict any use of the information to criminally investigate or prosecute any alcohol or drug abuse patient.[facility]In the event this information is protected by the Federal Confidentiality of Alcohol and Drug Abuse Patient Records regulations: The Federal rules restrict any use of the information to criminally investigate or prosecute any alcohol or drug abuse patient.[facility]In the event this information is protected by the Federal Confidentiality of Alcohol and Drug Abuse Patient Records regulations: The Federal rules restrict any use of the information to criminally investigate or prosecute any alcohol or drug abuse patient.[facility]In the event this information is protected by the Federal Confidentiality of Alcohol and Drug Abuse Patient Records regulations: The Federal rules restrict any use of the information to criminally investigate or prosecute any alcohol or drug abuse patient.[facility]In the event this information is protected by the Federal Confidentiality of Alcohol and Drug Abuse Patient Records regulations: The Federal rules restrict any use of the information to criminally investigate or prosecute any alcohol or drug abuse patient.[facility]In the event this information is protected by the Federal Confidentiality of Alcohol and Drug Abuse Patient Records regulations: The Federal rules restrict any use of the information to criminally investigate or prosecute any alcohol or drug abuse patient.[facility]In the event this information is protected by the Federal Confidentiality of Alcohol and Drug Abuse Patient Records regulations: The Federal rules restrict any use of the information to criminally investigate or prosecute any alcohol or drug abuse patient.[facility]In the event this information is protected by the Federal Confidentiality of Alcohol and Drug Abuse Patient Records regulations: The Federal rules restrict any use of the information to criminally investigate or prosecute any alcohol or drug abuse patient.[facility]In the event this information is protected by the Federal Confidentiality of Alcohol and Drug Abuse Patient Records regulations: The Federal rules restrict any use of the information to criminally investigate or prosecute any alcohol or drug abuse patient.[facility]In the event this information is protected by the Federal Confidentiality of Alcohol and Drug Abuse Patient Records regulations: The Federal rules restrict any use of the information to criminally investigate or prosecute any alcohol or drug abuse patient.[facility]In the event this information is protected by the Federal Confidentiality of Alcohol and Drug Abuse Patient Records regulations: The Federal rules restrict any use of the information to criminally investigate or prosecute any alcohol or drug abuse patient.[facility]In the event this information is protected by the Federal Confidentiality of Alcohol and Drug Abuse Patient Records regulations: The Federal rules restrict any use of the information to criminally investigate or prosecute any alcohol or drug abuse patient.[facility] HospitalIn the event this information is protected by the Federal Confidentiality of Alcohol and Drug Abuse Patient Records regulations: The Federal rules restrict any use of the information to criminally investigate or prosecute any alcohol or drug abuse patient.[facility]In the event this information is protected by the Federal Confidentiality of Alcohol and Drug Abuse Patient Records regulations: The Federal rules restrict any use of the information to criminally investigate or prosecute any alcohol or drug abuse patient.[facility] FOR RECORDS PERTAINING TO PATIENTS WHO ARE OR HAVE BEEN ENROLLED IN A CHEMICAL DEPENDENCY/SUBSTANCEABUSE PROGRAM, SOME INFORMATION MAY BE OMITTED. This clinical summary was aggregated from multiple sources. Caution should be exercised in using it in the provision of clinical care. This summary normalizes information from multiple sources, and as a consequence, information in this document may materially change the coding, format and clinical context of patient data. In addition, data may be omitted in some cases. CLINICAL DECISIONS SHOULD BE BASED ON THE PRIMARY CLINICAL RECORDS. [employer] [facility] provides no warranty or guarantee of the accuracy or completeness of information in this document.
[2025-01-18] MEDS: Lactated Ringers 1,000 ML 50 ML IV (07:55)
[2025-01-18 08:11] LABS: Hematocrit 37.3 % (37-47); Hemoglobin 12.9 g/dL (12.0-15.0); Immature Granulocytes Count 0.030 X10^3/uL (0.0-0.0); Mean Corp Hgb Conc 34.6 g/dL (32-36); Mean Corpuscular Volume 79.9 fL (81-99); Mean Platelet Vol. 10.4 fl (6.2-12.0); NRBC Flagged by Analyzer 0 % (0-5); Platelet Count 189 K/mm3 (150-450); RBC Distribution Width CV 14.3 % (11.6-14.6); RBC Distribution Width SD 41.4 fl (35.1-43.9); Red Blood Count 4.67 M/mm3 (4.2-5.4); White Blood Count 10.9 K/mm3 (4.4-11.0)
[2025-01-18] MEDS: Oxytocin 15 Units/NS 250ml 15 UNITS/250 ML IV.SOLN 2 UNITS IV (08:15)
--- NOTE | 2025-01-18 08:33 | PCM.HP.OB ---
HPI - General General Date of Admission: 01/18/25 Date of Service: 01/18/25 Chief Complaint: induction HPI Narrative DULCE KING, is a 29 F who presents for elective induction of labor Maternal Data Information Final LEONA: 01/22/25 Gestational age: 39+3 PFSH PFS Medical History macrosomia Anxiety Home Medications ?Medication ?Instructions ?Recorded ?Last Taken ?Type vit no.95-ferrous 1 tab PO DAILY 01/18/25 01/17/25 History fumarate 28 mg-folic acid 800 mcg tablet () Allergy/AdvReac Type Severity Reaction Status Date / Time No Known Allergies Allergy Verified 01/18/25 07:59 Surgical History H/O dilation and curettage Social History Smoking Status: Never smoker History 4 Elective abortions Hx Para 1 Spontaneous abortions Hx # Term Pregnancies Ectopic pregnancies Hx # Pregnancies Multiple births # of living children NST FHR Rate Baby A Baseline: 140 Variability:: Moderate Accelerations:: 15 x 15 Decelerations:: None NST Reactive:: Yes Uterine Activity:: occasional ROS Constitutional Constitutional: Denies fatigue, fever(s) or malaise Eyes Eyes: Denies change in vision ENT HEENT: Denies dizziness or headache(s) Cardiovascular Cardiovascular: Denies chest pain, dyspnea or lightheadedness Respiratory/Chest Respiratory/Chest: Denies cough or dyspnea Gastrointestinal Gastrointestinal: Denies change in bowel habits Genitourinary Genitourinary: Denies burning urination or genital lesions Integumentary Integumentary: Denies rash Neurologic Neurologic: Denies confusion, dizziness, headache(s), numbness or weakness Vital Signs Vital Signs Vital Signs: 01/18/25 07:36 01/18/25 07:36 01/18/25 07:36 Temperature Temperature Source Tympanic Pulse Rate 82 Respiratory Rate Blood Pressure 124/76 H BP Systolic 124 BP Diastolic 76 Pulse Ox 01/18/25 07:36 01/18/25 07:36 01/18/25 07:37 Temperature 98.2 F Temperature Source Pulse Rate 80 Respiratory Rate 16 Blood Pressure BP Systolic BP Diastolic Pulse Ox 01/18/25 07:37 Temperature Temperature Source Pulse Rate Respiratory Rate Blood Pressure BP Systolic BP Diastolic Pulse Ox 97 Weight Weight: 112.264 kg Body Mass Index (BMI) 35.5 Physical Exam Const alert and no apparent distress General Appearance: cooperative HEENT normocephalic Resp normal respiratory effort Cardio regular rate GI soft to palpation GI Narrative: gravid, nontender, appropriate for gestational age Extremity no calf tenderness General Extremity: edema Skin no wounds Rashes: No rashes noted Psych activity/motor behavior normal Labs Labs Labs: Blood Type O POSITIVE Antibody Screen NEGATIVE Hct 37.3 % (37-47) Hgb 12.9 g/dL (12.0-15.0) Syphilis Total Ab Nonreactive (Nonreactive) Assessment & Plan (1) 39 weeks gestation of : (2) Elective induction of labor planned: PLAN: Plan Pitocin AROM prn Epidural prn
[2025-01-18 09:07] LABS: Syphilis Antibodies Nonreactive (Nonreactive)
--- NOTE | 2025-01-18 09:09 | PCM.PN.OB ---
Subjective Subjective AROM for clear fluid. / Objective Data Objective Data Vital Signs: Vital Signs Temp Pulse Resp BP Pulse Ox 99.1 F 87 16 129/72 H 98 01/18/25 08:42 01/18/25 08:42 01/18/25 08:42 01/18/25 08:42 01/18/25 08:42 Weight: 112.264 kg Body Mass Index (BMI) 35.5 Intake & Output: Intake and Output for Last 24 Hours 01/16/25 01/17/25 01/18/25 23:59 23:59 23:59 Intake Total Balance Lab / Micro Data 01/18/25 07:55 Labs: Laboratory Results - last 24 hr 01/18/25 07:55: WBC 10.9, RBC 4.67, Hgb 12.9, Hct 37.3, MCV 79.9 L, MCH 27.6, MCHC 34.6, RDW Std Deviation 41.4, RDW Coeff of Rick 14.3, Plt Count 189, MPV 10.4, Immature Gran % (Auto) 0.300, Neut % (Auto) 75.6 H, Lymph % (Auto) 17.7 L, [place] % (Auto) 4.9, Eos % (Auto) 1.3, Baso % (Auto) 0.2, Absolute Neuts (auto) 8.2 H, Absolute Lymphs (auto) 1.92, Nucleated RBC % 0, Syphilis Total Ab Nonreactive, Blood Type O POSITIVE, Antibody Screen NEGATIVE Assessment & Plan (1) Elective induction of labor planned: (2) 39 weeks gestation of :
[2025-01-18] MEDS: Lactated Ringers 1,000 ML 999 ML IV (12:30)
[2025-01-18] MEDS: LACTATED RINGERS 500 ML 999 ML IV (14:29)
[2025-01-18] MEDS: fentaNYL-bupivacaine (epidural) 100 ML BAG EPIDURAL (14:29)
--- NOTE | 2025-01-18 16:21 | EX.PCM.OBVAG ---
Assessment & Plan (1) 39 weeks gestation of : (2) (spontaneous vaginal delivery): Maternal Data Information Final LEONA: 01/22/25 Gestational age: 39+3 Vaginal Delivery Maternal Presentation Maternal Presentation: Elective Induction Type of Induction: Pitocin and Amniotomy Vaginal Delivery Information Procedure Performed: Spontaneous Vaginal Delivery Surgeon/Practitioner: Liana Rosario Date of Procedure: 01/18/25 Pre-Procedure Diagnosis: Term Post-Procedure Diagnosis: Type of anesthesia: Epidural Estimated Blood Loss: 150 cc Time of Delivery: 15:40 Findings Description of procedure: AROM for clear fluid at 3 cm. Pitocin augmentation and then epidural placement. Once complete, patient pushed twice to deliver the vertex over an intact perineum. The anterior and posterior shoulder delivered easily. The infant was placed on the maternal abdomen. The cord was clamped and cut at 1 minute. Cord blood was collected. The placenta was delivered with gentle traction. There were no lacerations. All sponge, needle and instrument counts were correct. 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
[2025-01-18] MEDS: Oxytocin 15 Units/NS 250ml 15 UNITS/250 ML IV.SOLN 83 UNITS IV (16:30)
[2025-01-19 03:24] VITALS: BP 116/77; PULSE 83; RESP 16; TEMP 36.6; O2SAT 97
--- NOTE | 2025-01-19 06:40 | PN.OBGYN_ITS ---
Subjective Subjective Doing well. Ambulating and voiding without difficulty. Mild lochia. Objective Data Objective Data Vital Signs: Vital Signs Temp Pulse Resp BP Pulse Ox O2 Del Method 97.8 F 83 16 116/77 97 Room Air 01/19/25 03:24 01/19/25 03:24 01/19/25 03:24 01/19/25 03:24 01/19/25 03:24 01/19/25 03:24 Oxygen Delivery Method Room Air Weight: 112.264 kg Body Mass Index (BMI) 35.5 Intake & Output: Intake and Output for Last 24 Hours 01/17/25 01/18/25 01/19/25 23:59 23:59 23:59 Intake Total 2416.66 / 2416.66 Output Total 850 / 850 900 / 900 Balance 1566.66 / 1566.66 -900 / -900 Lab / Micro Data 01/18/25 07:55 Labs: Laboratory Results - last 24 hr 01/18/25 07:55: WBC 10.9, RBC 4.67, Hgb 12.9, Hct 37.3, MCV 79.9 L, MCH 27.6, MCHC 34.6, RDW Std Deviation 41.4, RDW Coeff of Rick 14.3, Plt Count 189, MPV 10.4, Immature Gran % (Auto) 0.300, Neut % (Auto) 75.6 H, Lymph % (Auto) 17.7 L, [place] % (Auto) 4.9, Eos % (Auto) 1.3, Baso % (Auto) 0.2, Absolute Neuts (auto) 8.2 H, Absolute Lymphs (auto) 1.92, Nucleated RBC % 0, Syphilis Total Ab Nonreactive, Blood Type O POSITIVE, Antibody Screen NEGATIVE ROS Constitutional Constitutional: Denies headache(s) Cardiovascular Cardiovascular: Denies chest pain or dyspnea Gastrointestinal Gastrointestinal: Denies nausea or vomiting Genitourinary Genitourinary: Denies dysuria Physical Exam Const alert, oriented x3 and no apparent distress General Appearance: cooperative and comfortable Eyes PERRL and EOMs intact bilaterally Resp normal respiratory effort GI soft to palpation and non-tender Uterus Palpation: uterus fundus firm ( below umbilicus) Extremity normal to inspection and full ROM Neuro oriented x3 and CN's II-XII intact bilaterally Psych mental status grossly normal Assessment & Plan (1) (spontaneous vaginal delivery): PLAN: Plan Discharge home
--- NOTE | 2025-01-19 06:41 | DS.PCM_ITS ---
Providers Date of Admission: 01/18/25 Date of Discharge: 01/19/25 Primary Care Physician: No Primary Care Phys Reason For Visit: VAGINAL DELIVERY Diagnosis Discharge Diagnosis (1) (spontaneous vaginal delivery): Status: Acute Code(s): O80 - Encounter for full-term uncomplicated delivery Plan Discharge home Medications at Discharge Home Medications vit no.95-ferrous fumarate 28 mg-folic acid 800 mcg tablet () 1 tab PO DAILY 01/18/25 Hospital Course Operations None Procedures None Summary of Care Provided Minutes Spent on Discharge: 20 Hospital Course: Elective IOL with Physical Exam Const alert, oriented x3 and no apparent distress General Appearance: cooperative and comfortable Eyes PERRL and EOMs intact bilaterally Resp normal respiratory effort GI soft to palpation and non-tender Uterus Palpation: uterus fundus firm ( below umbilicus) Extremity normal to inspection and full ROM Neuro oriented x3 and CN's II-XII intact bilaterally Psych mental status grossly normal Weight / BMI Weight Weight: 112.264 kg Body Mass Index (BMI) 35.5 ABG / Lab / Microbiology Data 01/18/25 07:55 Laboratory: Laboratory Results - last 24 hr 01/18/25 07:55: WBC 10.9, RBC 4.67, Hgb 12.9, Hct 37.3, MCV 79.9 L, MCH 27.6, MCHC 34.6, RDW Std Deviation 41.4, RDW Coeff of Rick 14.3, Plt Count 189, MPV 10.4, Immature Gran % (Auto) 0.300, Neut % (Auto) 75.6 H, Lymph % (Auto) 17.7 L, [place] % (Auto) 4.9, Eos % (Auto) 1.3, Baso % (Auto) 0.2, Absolute Neuts (auto) 8.2 H, Absolute Lymphs (auto) 1.92, Nucleated RBC % 0, Syphilis Total Ab Nonreactive, Blood Type O POSITIVE, Antibody Screen NEGATIVE D/C Instructions May resume sexual activity in: 6 weeks DC O2, CPAP, BIPAP Needs Home O2 Discharge instructions: No Please Follow Up With: Lizzy Shelby MD When: Follow up with our office in 1-2 and 6 weeks or as needed. [phone] Meaningful Use Info Meaningful Use Meaningful Use Diagnoses (Choose all that apply): None applicable Discharge Plan Admission Admit Date/Time: 01/18/25 07:10 Primary Reason for Your Visit: induction Attending Provider: Liana Rosario Primary Care Provider: Care Physician,Jennie Primary Discharge Orders/Prescriptions Prescriptions: Continued PNV no.95-ferrous fumarate-FA [] 28 mg iron- 800 mcg tablet 1 tab PO DAILY Referrals / Follow Up: Care Physician,No Primary [Primary Care Provider] - Disposition Disposition (needs filled in before D/C Order can be placed): Home, Self Care
[2025-01-19 08:05] VITALS: BP 132/78; PULSE 72; RESP 18; TEMP 36.7; O2SAT 98
[2025-01-19 11:50] VITALS: BP 123/74; PULSE 80; RESP 16; TEMP 36.9; O2SAT 99
--- NOTE | 2025-01-19 12:52 | CASEMGMT ---
Social Work Assessment Labor and Delivery Unit Patient Address: [address] [place] [address] [address] [facility] Phone number: [phone] Date of Referral: 01/18/25 Time of Referral:? [phone] Referred By: Dr. Rosario Date of Intervention: ?01/19/25? Time of Intervention:? 1100 Reason for Referral:? hx anxiety Sw completed chart review and acknowledges social work consult due to maternal mental health. Sw presented to bedside and introduced self to mother of baby (GABRIEL- Sweta) and father of baby (AR- Erik). Sw explained reason for sw involvement and completed psychosocial assessment. History obtained from: medical records, MOB and AR Household composition: Currently residing in the family home is AR RIOS, their three year old son: Katherine Jewell, and baby to be included in residence when ready for discharge. Parents deny any problems or concerns with housing, stating that it is safe and secure. Patient's parent/guardian status:?Parents report that they met each other in high school and have been together for 13 years, and for almost 4. baby is the second baby for parents together. No concerns reported of domestic violence or intimate partner violence. Medical History: GABRIEL is 29 year old female who is 4, para 1- now 2 following labor and delivery of . GABRIEL received routine care during with [facility]. GABRIEL presented to hospital for induction of labor. GABRIEL delivered baby via vaginal delivery on 01/18/25 via vaginal delivery at 39 weeks gestation. Baby boy, named Jr, was born weighing 7lb 11oz with apgars of 7 and 9 at one and five minutes of life, respectfully. GABRIEL is bottle feeding and reports that baby will be followed by Dr. Murcia for pediatrics. ? Educational Status:? Both parents graduated from high school and GABRIEL obtained her Bachelor's degree. No problems with reading, learning or comprehension. 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 Infant Supplies:??All necessary baby supplies obtained, including: car seat, safe sleep space, clothes, diapers and wipes. Childcare/Caregiver(s):? GABRIEL and AR will be the primary caregiver to baby, when both parents are working they have an in home childcare provider Transportation:?? Both parents have their drivers license and reliable means of transportation. Programs/Agencies Involved: ??Parents are over income for community resources that provide financial assistance. ? Children Services/Legal Issues:??? No prior involvement with children services, no issues or concerns warranting referral to be made at this time. Behavioral Health Issues: ??Mental Health History: AR denies mental health history. MOB states that she struggled with some anxiety during this . MOB states that prior to this she experienced a miscarriage, and then at 13 weeks had a hemorrhage where she was also worried she was having a miscarriage. MOB states that due to those issues she had more anxiety during this . MOB states that now that baby is here her anxiety is gone, however while having this discussion MOB is observed to be tearful. ? Substance Use History:?Parents deny substance use prior to and during . ? Family History:?No family history of substance use or significant mental health history. ? Drug Screens: No drug screens observed while completing chart review. ?? Family/Social Stressors:? Parents deny any issues, concerns or stressors at this time. Support Systems: MOB states that FOB and maternal grandparents are their biggest stressors at this time. Depression/Shaken Baby/Safe Sleeping:? Hua educated MOB on signs and symptoms of baby blues and depression and anxiety. MOB states that she did not struggle with any baby blues or depression or anxiety following the delivery of her first baby. MOB states that she feels comfortable talking to FOB if she feels that she is struggling with her mental health. FOB states that if MOB were to struggling he would know how to help and support her. MOB states that since delivering baby she feels like herself, expresses to having a may/ connection with baby and is happy baby is healthy. Hua educated parents on shaken baby prevention and ABCs of safe sleep, parents express understanding. ASSESSMENT: MOB and baby admitted following labor and delivery. MOB with mental health history of anxiety. MOB states that she did struggle with some anxiety throughout this following a miscarriage prior to and worried that the same thing may happen. MOB states that she is aware of what signs and symptoms to be mindful of going into this period. MOB states that she is not prescribed any medications to help her manage her mental health and is not connected to any mental health supports. MOB was laying in bed comfortably and holding baby while sleeping. MOB was observed to hold baby closely and lovingly. FOB sitting on couch beside bed and engaging in conversation sporadically when asked questions specifically to him. Parents were polite and conversation flowed easily and naturally. PLAN:? No other services requested or indicated. MOB and baby to be discharged when medically ready. Parents were provided literature regarding: signs and symptoms of baby blues and mood and anxiety disorders, Help Me Grow, shaken baby prevention, ABCs of safe sleep and a list of [facility] resources that are available for them should any needs present themselves. Geovany Broussard, EXPORT FREIGHT SPECIALIST, FERRY BOAT CAPTAIN
[2025-01-19 16:29] VITALS: BP 110/77; PULSE 79; RESP 16; TEMP 37; O2SAT 98
== END 2025-01-19 17:50 | disposition home or self-care (01) | DRG 807 ==
PROVIDERS: Admitting Provider Obstetrics & Gynecology; Referring Provider Obstetrics & Gynecology; Visit Provider Obstetrics & Gynecology
DX: O80 Encounter for full-term uncomplicated delivery (principal); Z37.0 Single live birth; Z3A.39 39 weeks gestation of pregnancy
CPT/HCPCS: 59025; 59050; 85025; 86780; 86850; 86900; 86901; 99221; G0378